=== PATIENT | male | born 1960 | race Caucasian/White ===

== ENCOUNTER 2018-05-26 13:24 | Inpatient (IN) | payer MEDICARE, OTHER ==
[~2018-05-26] VITALS: Ht 167.6 cm; Wt 58.1 kg
--- NOTE | 2018-05-26 13:25 | NUR ---
BIB SELF VIA WHEELCHAIR, C/O WEAKNESS, CHRONIC UTI AND LEFT BUTTOCK WOUND. TO ER BED 7, HOOKED TO MONITOR, ON REVERSE ISOLATION FOR LEUKEMIA. AWAITING MD PETERSEN.
--- NOTE | 2018-05-26 14:00 | NUR ---
PA AT BEDSIDE
[2018-05-26 14:17] LABS: BASOPHILS % (AUTO) 0.1 % (0.0-2.0); EOSINOPHILS % (AUTO) 0.1 % (0.0-6.0); HEMATOCRIT 39 % (39-51); HEMOGLOBIN 12.5 g/dL (13.5-17.5); LYMPHOCYTES # (AUTO) 0.4 /CMM (0.8-4.8); LYMPHOCYTES % (AUTO) 5.3 % (20.0-44.0); MEAN CORPUSCULAR HGB CONC 32 g/dl (31.0-36.0); MEAN CORPUSCULAR VOLUME 72 fL (80-96); MONOCYTES # (AUTO) 0.6 /CMM (0.1-1.30); MONOCYTES % (AUTO) 8.9 % (2.0-12.0); NEUTROPHILS # (AUTO) 6.1 /CMM (1.8-8.9); NEUTROPHILS % (AUTO) 85.6 % (43.0-81.0); PLATELET COUNT (AUTO) 531 /CMM (150-450); RED BLOOD CELL COUNT(AUTO) 5.38 MIL/uL (4.5-6.0); WHITE BLOOD COUNT (AUTO) 7.1 K/uL (4.3-11.0)
[2018-05-26 14:26] LABS: CALCIUM, SERUM 8.9 mg/dL (8.5-10.1); CARBON DIOXIDE 27 mmol/L (21-32); CHLORIDE 95 mmol/L (98-107); CREATININE 1.4 mg/dL (0.6-1.3); GLUCOSE 92 mg/dL (74-106); POTASSIUM 4.7 mmol/L (3.5-5.1); SODIUM SERUM 132 mmol/L (136-145); UREA NITROGEN, BLOOD 23 mg/dL (7-18)
--- NOTE | 2018-05-26 14:50 | NUR ---
URINE SPECIMEN SENT TO LAB
[2018-05-26] MEDS ORDERED: LIDOCAINE 1%-EPI 1:100,000 20 ML VIAL ONE (14:56)
[2018-05-26] MEDS ORDERED: VANCOMYCIN 1 GM in IV D5W 250 ML IV ONE (15:00)
[2018-05-26] MEDS ORDERED: PIPERACILLIN /TAZOBACTAM 3.375 G in IV D5W 50 ML IV ONE (15:00)
--- NOTE | 2018-05-26 15:00 | NUR ---
PT SIGNED CONSENT FOR DEBRIDEMENT. DR BENITO THIBODEAUX AT BEDSIDE FOR DEBRIDEMENT OF L BUTTOCK WOUND.
[2018-05-26 15:02] LABS: APPEARANCE,URINE Clear (CLEAR); BILIRUBIN,URINE Negative (NEGATIVE); BLOOD, URINE Trace-intact Ery/uL (NEGATIVE); COLOR,URINE Yellow (YELLOW); KETONES,URINE Negative (NEGATIVE); LEUKOCYTE ESTERASE ,URINE Small (NEGATIVE); NITRITE, URINE Negative (NEGATIVE); PROTEIN,URINE 100 mg/dl (NEGATIVE); UGLUCOSE Negative (NEGATIVE); UROBILINOGEN,URINE 0.2 EU/dL (0.2)
[2018-05-26 15:05] LABS: BACTERIA,URINE Rare /HPF (None Seen); RBC,URINE 0-2 /HPF (0-2); SQUAMOUS EPITHELIAL CELL,UR Rare /HPF (None Seen); WBC,URINE 0-2 /HPF (0-3)
[2018-05-26] MEDS ORDERED: IV NS 0.9% 1,000 ML BAG IV ONE (15:30)
[2018-05-26 16:19] LABS: BAND % (MANUAL) 1 % (0.0-5.0); EOSINOPHILS % (MANUAL) 1 % (0-4); LYMPHOCYTES % (MANUAL) 7 % (16-48); MONOCYTES % (MANUAL) 4 % (0-11.0); NEUTROPHILS % (MANUAL) 87 (42-76)
[2018-05-26 16:49] LABS: BILIRUBIN,DIRECT 0.1 mg/dL (0.0-0.2); BILIRUBIN,TOTAL 0.4 mg/dL (0.2-1.0)
[2018-05-26] MEDS ORDERED: Z GUARD REMEDY 2 OZ OINT TP PRN (17:00)
[2018-05-26] MEDS ORDERED: MAGNESIUM HYDROXIDE 30 ML UDC PO PRN (17:00)
[2018-05-26] MEDS ORDERED: MAG HYDROX/AL HYDROX/SIMETH 30 ML UDC PO PRN (17:00)
[2018-05-26] MEDS ORDERED: ONDANSETRON HCL/PF 4 MG/2 ML VIAL IVP PRN (17:00)
[2018-05-26] MEDS ORDERED: HYDROMORPHONE 1 MG/1 ML DISP.SYRIN IV PRN (17:00)
[2018-05-26] MEDS ORDERED: HYDROCODONE/APAP 5/325MG 1 EACH TABLET PO PRN (17:00)
[2018-05-26] MEDS ORDERED: ZOLPIDEM TARTRATE 5 MG TABLET PO PRN (17:00)
--- NOTE | 2018-05-26 17:07 | NUR ---
REPORT GIVEN TO TAMELA COHN
[2018-05-26] MEDS ORDERED: FEE PK DOSING 1 MIN EA MC ONE (17:19)
[2018-05-26] MEDS ORDERED: IV NS 0.9% 1,000 ML BAG IV PRN (17:30)
--- NOTE | 2018-05-26 17:45 | NUR ---
MS OPERATIONS BOARDMAN NOTES 58 YEARS OLD MALE BROUGHT IN VIA GURNEY FROM ER. PATIENT IS A/O X4, COOPERATIVE. SKIN BODY ASSESSMENT DONE WITH ALEX/RN, LEFT BUTTOCK PRESSURE ULCER, DRESSING CHANGED. IVC CATH IN LEFT AC PATENT AND INTACT. ORIENTATION TO ROOM, UNIT, STAFF. MAINTAINED SAFETY, WILL CONT TO MONITOR.
[2018-05-26 17:46] VITALS: BP 112/74
[2018-05-26] MEDS: PANTOPRAZOLE 40 MG VIAL IV SCH (18:35)
[2018-05-26] MEDS: IV NS 0.9% 1,000 ML IV PRN (18:36)
[2018-05-26] MEDS: DAKINS QUARTER STRENGTH (0.125%) 480 ML BOTTLE TOP SCH (19:03)
--- NOTE | 2018-05-26 19:30 | NUR ---
MS RN CLOSING NOTES PATIENT SITTING UP IN BED, HAD DINNER WITH POOR APPETITE, OFFERED PO FLUIDS. STARTED IVF ORDERED, MAINTAINED AT 75ML/HR. DENIES PAIN, SEEN BY GI/ SANA MONAHAN TODAY FOR CONSULT. MAINTAINED SAFETY, DR. MEDINA FOR CONSULT. ENDORSED TO ONCOMING RN FOR CONTINUITY OF CARE.
[2018-05-26 20:00] VITALS: BP 94/59
--- NOTE | 2018-05-26 20:15 | NUR ---
PAGED SANA TO CLARIFY CT ABDOMEN WITH CONTRAST PER RADIOLOGY CREA IS 1.4 AWAITING CALL BACK
--- NOTE | 2018-05-26 20:16 | NUR ---
[facility] HOSPITALIST SPOKE TO BENJAMIN RELAYED PT REQUEST RICHEY CATHETER PER PT HE HAS RETENTION AND DOING SELF CATHETERIZATION PER BENJAMIN AGREED TO INSERT F/C. AWARE OF RECENT BP READ BACK AND VERIFIED ORDERS
--- NOTE | 2018-05-26 20:17 | NUR ---
SPOKE TO SANA GAONA PER SANA CT CAN WAIT TOMORROW SHE WANTED TO SEE AM CREATININE LABS
--- NOTE | 2018-05-26 20:19 | NUR ---
MS RN NOTES RECEIVE PT IN BED A/O X 3, NO PAIN AT THIS TIME. IN STABLE CONDITION, NOT IN DISTRESS, SAFETY MEASURES IN PLACE. WILL CONTINUE TO MONITOR.
--- NOTE | 2018-05-26 20:30 | NUR ---
Inserted sarabia cathether per order FR 16 sterile technique pt tolerated procedure well with good clear yellow urine.
[2018-05-26] MEDS ORDERED: PRED5TAB48 PO (20:57)
[2018-05-26] MEDS ORDERED: PANT40TA2 PO (20:57)
[2018-05-26] MEDS ORDERED: GABA-532 PO (20:57)
[2018-05-26] MEDS: ENOXAPARIN SODIUM 40 MG/0.4 ML DISP.SYRIN SQ SCH (21:29)
--- NOTE | 2018-05-26 22:15 | NUR ---
PAGED HOSPITALIST RELAYED PT MEDICATION RECONCILIATION WAS NOT RECONCILED. REVIEW ALL HOME MEDS. PER BENJAMIN AGREED TO CONTINUE ALL HOME MEDS PT REQUEST TO TAKE PREDNISONE 5 MG TONIGHT READ BACK AND VERIFIED ORDERS NOTED AND CARRIED OUT.
[2018-05-26] MEDS: predniSONE 5 MG TABLET PO SCH (22:48)
[2018-05-26] MEDS: ZOSYN IVPB 3.375 G in IV D5W 50ml IV SCH (22:49)
[2018-05-27] MEDS ORDERED: VANCOMYCIN 1 GM VIAL ONE (01:51)
[2018-05-27] MEDS: HYDROCODONE/APAP 10/325MG 1 EA TABLET PO PRN (02:04)
[2018-05-27] MEDS: VANCOMYCIN 0.75 GM in IV D5W 250 ML IV SCH ×2 (02:04→14:54)
[2018-05-27 03:10] LABS: OCCULT BLOOD STOOL NEGATIVE (NEGATIVE)
[2018-05-27] MEDS: ZOSYN IVPB 3.375 G in IV D5W 50ml IV SCH ×4 (04:53→22:10)
[2018-05-27] MEDS: DAKINS QUARTER STRENGTH (0.125%) 480 ML BOTTLE TOP SCH ×2 (04:55→16:55)
--- NOTE | 2018-05-27 06:15 | NUR ---
MS RN CLOSING NOTES ASLEEP AND EASILY AWAKEN, NO COMPLAIN OF PAIN AT THIS TIME. REMAINS STABLE. RESPIRATION EVEN AND UNLABORED. KEPT CLEAN AND DRY AND COMFORTABLE, ALL NURSING CARE RENDERED. TREATMENT ORDERED TO THE WOUND. GOOD SKIN PROVIDED. NEEDS ATTENDED AND ANTICIPATED. REPOSITION EVERY 2 HOURS. WILL ENDORSE TO THE NEXT SHIFT.
[2018-05-27 07:05] LABS: BASOPHILS % (AUTO) 0.1 % (0.0-2.0); EOSINOPHILS % (AUTO) 0.4 % (0.0-6.0); HEMATOCRIT 31 % (39-51); HEMOGLOBIN 9.9 g/dL (13.5-17.5); LYMPHOCYTES # (AUTO) 0.8 /CMM (0.8-4.8); LYMPHOCYTES % (AUTO) 16.3 % (20.0-44.0); MEAN CORPUSCULAR HGB CONC 32 g/dl (31.0-36.0); MEAN CORPUSCULAR VOLUME 73 fL (80-96); MONOCYTES # (AUTO) 0.6 /CMM (0.1-1.30); MONOCYTES % (AUTO) 13.5 % (2.0-12.0); NEUTROPHILS # (AUTO) 3.2 /CMM (1.8-8.9); NEUTROPHILS % (AUTO) 69.7 % (43.0-81.0); PLATELET COUNT (AUTO) 463 /CMM (150-450); RED BLOOD CELL COUNT(AUTO) 4.27 MIL/uL (4.5-6.0); WHITE BLOOD COUNT (AUTO) 4.6 K/uL (4.3-11.0)
[2018-05-27 07:17] LABS: CREATININE 1.1 mg/dL (0.6-1.3); MAGNESIUM 1.7 mg/dL (1.8-2.4); POTASSIUM 4.9 mmol/L (3.5-5.1)
[2018-05-27 07:23] LABS: ALBUMIN 1.6 g/dL (3.4-5.0); BILIRUBIN,DIRECT 0.1 mg/dL (0.0-0.2); BILIRUBIN,TOTAL 0.3 mg/dL (0.2-1.0); TOTAL PROTEIN, SERUM 5.4 g/dL (6.4-8.2)
[2018-05-27] MEDS: PANTOPRAZOLE 40 MG TABLET.DR PO SCH (07:54)
[2018-05-27 08:00] VITALS: BP 88/54
[2018-05-27] MEDS: predniSONE 5 MG TABLET PO SCH ×2 (08:16→16:47)
[2018-05-27] MEDS: GABAPENTIN 100 MG CAPSULE PO SCH ×3 (08:16→16:47)
--- NOTE | 2018-05-27 08:20 | NUR ---
MS RN INITIAL NOTES Patient in bed, awake, A/O x4. Stable on RA with no SOB, no cough. Poor appetite, encourage to eat, verbalized understanding. IVF infusing, maintained at 75ml/hr. KCI mattress in place. Maintained safety, will cont to monitor.
[2018-05-27] MEDS ORDERED: IOHEXOL-300 100 ML VIAL IV ONE (09:18)
[2018-05-27] MEDS ORDERED: CT SWABBABLE VALVE TRANS SET 1 EA INFUS.SET MC ONE (09:19)
[2018-05-27] MEDS ORDERED: IV NS 0.9% 250 ML IV ONE (09:19)
--- NOTE | 2018-05-27 09:56 | NUR ---
WOUND CARE CONSULT: PT FOLLOWED BY PLASTIC SURGERY TEAM. DEFER TO SURGICAL TEAM FOR WOUND TREATMENT PLAN. ALL PRESSURE ULCER PREVENTION MEASURES IN PLACE. WILL SEE PRN.
[2018-05-27] MEDS: Magnesium 1GM/D5W 100ML PREMIX 100 ML IV SCH ×2 (11:11→12:07)
[2018-05-27] MEDS: IV NS 0.9% 1,000 ML IV PRN (13:17)
[2018-05-27] MEDS: ENSURE ENLIVE CHOC 237 ML CAN PO SCH ×2 (13:18→17:39)
[2018-05-27 16:00] VITALS: BP 101/68
[2018-05-27] MEDS: PANTOPRAZOLE 40 MG VIAL IV SCH (16:37)
[2018-05-27] MEDS: PROSOURCE / PROSTAT (PYXIS) 30 ML UDC PO SCH (16:46)
[2018-05-27] MEDS: FERROUS SULFATE (325 MG) 325 MG/TAB TABLET PO SCH (16:47)
[2018-05-27 18:11] VITALS: BP 101/68
--- NOTE | 2018-05-27 18:14 | NUR ---
MS RN CLOSING NOTES Patient is sitting up in bed, had dinner, Full liquids diet per ST recommendation. Patient is seen by PT today for eval, patient participated well. IVF infusing, maintained at 75ml/hr, low magnesium-supplemented today. Continued antibiotic as scheduled. Dressing changed to left buttock wound done, KCI mattress in place. Urinary sarabia cath intact, draining to gravity, bag off the floor. Copies of medical records from [facility] place in the chart, available if Dr. Monk/Oncologist ask for it. Maintained safety, call light within reach. Will endorse to oncoming RN for continuity of care.
--- NOTE | 2018-05-27 18:34 | NUR ---
Verified medications allergy from patient. Patient is A/O x4, stated he does not have PCN allergy. Updated patient's allergies to medication profile.
--- NOTE | 2018-05-27 19:00 | NUR ---
MS RN NOTES RECEIVE PT IN BED A/O X 3, NO PAIN AT THIS TIME. NOT IN DISTRESS, SAFETY MEASURES IN PLACE. WILL CONTINUE TO MONITOR.
[2018-05-27 20:00] VITALS: BP 107/54
[2018-05-27] MEDS: ENOXAPARIN SODIUM 40 MG/0.4 ML DISP.SYRIN SQ SCH (20:42)
[2018-05-28] MEDS: VANCOMYCIN 0.75 GM in IV D5W 250 ML IV SCH ×2 (02:01→02:40)
[2018-05-28] MEDS: IV NS 0.9% 1,000 ML IV PRN ×2 (02:01→20:43)
--- NOTE | 2018-05-28 02:40 | NUR ---
MS RN NOTES HELD VANCOMYCIN IVPB VANCO TROUGH IS 35. MISTAKEN SCANNED MEDICATION AT 0201 UNDONE.
[2018-05-28] MEDS: ZOSYN IVPB 3.375 G in IV D5W 50ml IV SCH ×4 (05:11→22:31)
[2018-05-28] MEDS: DAKINS QUARTER STRENGTH (0.125%) 480 ML BOTTLE TOP SCH ×2 (05:14→16:23)
--- NOTE | 2018-05-28 06:33 | NUR ---
MS RN CLOSING NOTES AWAKE WATCHING TV, TOLERATING ROOM AIR 98%, RESPIRATION EVEN AND UNLABORED. KEPT CLEAN AND DRY AND COMFORTABLE, NEEDS ATTENDED AND ANTICIPATED. ALL NURSING CARE RENDERED. REPOSITION EVERY 2 HOURS. TREATMENT ORDERED TO THE WOUND. GOOD SKIN PROVIDED. WILL ENDORSE TO THE NEXT SHIFT.
[2018-05-28 07:02] LABS: CALCIUM, SERUM 8.3 mg/dL (8.5-10.1); MAGNESIUM 2.1 mg/dL (1.8-2.4); POTASSIUM 4.3 mmol/L (3.5-5.1)
[2018-05-28 08:00] VITALS: BP 115/71
[2018-05-28 08:09] LABS: IMMUNOGLOBULIN A, SERUM 258 mg/dL (90-386); IMMUNOGLOBULIN G, SERUM 1024 mg/dL (700-1600); IMMUNOGLOBULIN M, SERUM 153 mg/dL (20-172)
--- NOTE | 2018-05-28 08:34 | NUR ---
MS RN INITIAL NOTES Received patient from Radha Portillo
[2018-05-28] MEDS: predniSONE 5 MG TABLET PO SCH ×2 (08:44→20:41)
[2018-05-28] MEDS: GABAPENTIN 100 MG CAPSULE PO SCH ×3 (08:45→16:21)
[2018-05-28] MEDS: FERROUS SULFATE (325 MG) 325 MG/TAB TABLET PO SCH ×2 (08:45→16:21)
[2018-05-28] MEDS: PANTOPRAZOLE 40 MG TABLET.DR PO SCH (08:46)
[2018-05-28] MEDS: ENSURE ENLIVE CHOC 237 ML CAN PO SCH ×3 (08:49→16:21)
[2018-05-28] MEDS: PROSOURCE / PROSTAT (PYXIS) 30 ML UDC PO SCH ×2 (09:26→16:21)
[2018-05-28 16:00] VITALS: BP 112/58
[2018-05-28] MEDS ORDERED: VANCOMYCIN 0.75 GM in IV D5W 250 ML IV SCH (16:00)
[2018-05-28] MEDS: PANTOPRAZOLE 40 MG VIAL IV SCH (16:49)
--- NOTE | 2018-05-28 18:33 | NUR ---
MS RN CLOSING NOTES Patient remained in bed, awake and pleasant. Alert and oriented x4, verbally responsive. Denies any pain at the moment. Not in any type of distress. On antibiotic treatment for infected left buttocks wound. Afebrile. Dressing changed and treatment rendered as ordered. Safety measures in place. Possible EGD on wednesday. Ileostomy bag emptied. IV dressing changed. Bed in locked and lowest position with bed alarm on and call light within reach. Patient is motivated to self-care. All needs anticipated and met. Will endorse to oncoming shift nurse.
--- NOTE | 2018-05-28 19:25 | NUR ---
MS RN NOTES RECEIVE PT IN BED A/O X 3. RESPIRATIONS EVEN AND UNLABORED. NOT IN DISTRESS, SAFETY MEASURES IN PLACE. WILL CONTINUE TO MONITOR.
[2018-05-28 20:00] VITALS: BP 117/68
[2018-05-28] MEDS: ENOXAPARIN SODIUM 40 MG/0.4 ML DISP.SYRIN SQ SCH (20:42)
[2018-05-29] MEDS: ZOSYN IVPB 3.375 G in IV D5W 50ml IV SCH ×4 (05:16→22:00)
[2018-05-29] MEDS: DAKINS QUARTER STRENGTH (0.125%) 480 ML BOTTLE TOP SCH ×2 (05:19→17:31)
--- NOTE | 2018-05-29 06:04 | NUR ---
MS RN CLOSING NOTES ASLEEP AND EASILY AWAKEN, AM CARE PROVIDED. STABLE. NO CHANGES THROUGHOUT SHIFT. TREATMENT ORDERED TO THE WOUND. GOOD SKIN CARE PROVIDED. TOLERATING ROOM AIR 100%, RESPIRATION EVEN AND UNLABORED. KEPT CLEAN AND DRY AND COMFORTABLE, NEEDS ATTENDED AND ANTICIPATED. ALL NURSING CARE RENDERED. REPOSITION EVERY 2 HOURS. WILL ENDORSE TO THE NEXT SHIFT.
[2018-05-29 07:04] LABS: CALCIUM, SERUM 7.8 mg/dL (8.5-10.1); CREATININE 0.9 mg/dL (0.6-1.3); POTASSIUM 4.3 mmol/L (3.5-5.1)
--- NOTE | 2018-05-29 07:50 | NUR ---
MS RN OPENING NOTES RECEIVED PT LAYING IN BED RESTING COMFORTABLY W/ HOB SLIGHTLY ELEVATED. PT IS A/O X4, AFEBRILE. RESPIRATIONS ARE EVEN AND UNLABORED, NOT IN ANY ACUTE DISTRESS NOTED. PT C/O PAIN 5/10 TO LEFT BUTTOCK BUT "IS TOLERABLE" AT THIS TIME, NO C/O SOB, N/V. IV SITE TO LAC INTACT, NO INFILTRATION NOTED. DRESSING KEPT CLEAN AND DRY. SAFETY MEASURES ARE IN PLACE. BED IS IN ITS LOCKED AND LOWEST POSITION. INSTRUCTED PT TO USE CALL LIGHT WHEN ASSISTANCE IS NEEDED, CALL LIGHT IS LEFT WITHIN REACH. WILL MONITOR THROUGHOUT SHIFT FOR CONTINUITY OF CARE.
[2018-05-29 08:00] VITALS: BP 112/67
[2018-05-29 08:11] VITALS: BP 112/67
[2018-05-29] MEDS: FERROUS SULFATE (325 MG) 325 MG/TAB TABLET PO SCH ×2 (08:52→16:13)
[2018-05-29] MEDS: predniSONE 5 MG TABLET PO SCH ×2 (08:52→20:28)
[2018-05-29] MEDS: PANTOPRAZOLE 40 MG VIAL IV SCH (08:53)
[2018-05-29] MEDS: PROSOURCE / PROSTAT (PYXIS) 30 ML UDC PO SCH ×2 (08:53→16:16)
[2018-05-29] MEDS: GABAPENTIN 100 MG CAPSULE PO SCH ×3 (08:53→20:28)
[2018-05-29] MEDS: ENSURE ENLIVE CHOC 237 ML CAN PO SCH ×3 (08:54→17:33)
--- NOTE | 2018-05-29 12:30 | NUR ---
MS RN NOTES-- RECEIVED ORDERS PER DR. REGALADO FOR IMODIUM 2MG Q4H PRN. ORDERS READ BACK AND VERIFIED.
--- NOTE | 2018-05-29 13:07 | NUR ---
MS RN NOTES-- PT STATES HE TAKES GABAPENTIN 0900, 1500, 2100.
[2018-05-29] MEDS: LOPERAMIDE HCL (2 MG CAP) 2 MG CAPSULE PO PRN ×2 (13:43→20:36)
--- NOTE | 2018-05-29 14:30 | NUR ---
MS RN NOTES-- DR. LAUREN MADE AWARE THAT PT REFUSED GOLYTELY. PER DR. LAUREN "THATS OKAY."
[2018-05-29] MEDS ORDERED: PEG 3350/NA SULF,BICARB,CL/KCL 4,000 ML BOTTLE PO ONE (15:00)
--- NOTE | 2018-05-29 15:00 | NUR ---
MS RN NOTES-- PT SIGNED CONSENT FORMS FOR EGD AND COLONOSCOPY. PER DR. LAUREN, COLONOSCOPY CONSENT IS FOR THE SCOPE TO ENTER THROUGH ILEOSTOMY. PT MADE AWARE.
--- NOTE | 2018-05-29 15:20 | NUR ---
MS RN NOTES GAVE REPORT TO SUKI BRANHAM FOR CONTINUITY OF CARE. PT IS A/O X4, AFBERILE. RESPIRATIONS ARE EVEN AND UNLABORED, NOT IN ANY ACUTE DISTRESS NOTED. PT C/O PAIN BUT IS TOLERABLE. PT STATES HE WILL TAKE HIS GABAPENTIN INSTEAD. PT ABLE TO REPOSITION SELF. NEEDS MET AND RENDERED.
--- NOTE | 2018-05-29 15:30 | NUR ---
RECEIVED PATIENT IN STABLE CONDITION. A/OX4, ABLE TO MAKE NEEDS KNOWN. NO ACUTE DISTRESS, NO SOB. DENIED PAIN OR DISCOMFORT AT THE MOMENT. IV ACCESS INTACT AND PATENT. RICHEY IN PLACE. ILEOSTOMY IN PLACE. ON AIR MATTRESS, ABLE TO TURN SELF ON BED. KEPT PATIENT SAFE AND COMFORTABLE. BED IN LOW/LOCKED POSIITON, SIDERAILS UPX2, CALL LIGHT IN REACH. WILL CONTINUE TO MONIIOTR ACCORDINGLY.
[2018-05-29 16:02] VITALS: BP 140/87
[2018-05-29] MEDS: IV NS 0.9% 1,000 ML IV PRN (16:05)
--- NOTE | 2018-05-29 16:21 | NUR ---
ASSESSED PATIENT FOR PAIN. VERBALIZED 6/10 PAIN ON BUTTOCKS. OFFERED PAIN MEDICATIONS X2 BUT REFUSED. PER PATIENT, "IT'S TOLERABLE". WILL CONT TO MONIOTR ACCORDINGLY.
[2018-05-29] MEDS: HYDROCODONE/APAP 10/325MG 1 EA TABLET PO PRN (17:27)
--- NOTE | 2018-05-29 18:09 | NUR ---
WOUND CARE RENDERED. OFFERED TURNING AND REPOSITIONING, PATIENT STATED "NO THANK YOU, I CAN MOVE BY MYSELF". REMINDED PATIENT TO TURN AND REPOSITION EVERY 2HRS, PATIENT STATED "OK".
--- NOTE | 2018-05-29 19:00 | NUR ---
MS RN OPENING NOTES Received patient awake, A/OX4, conversant. On semi-Kan's position on bed with air mattress. With son at bedside. With wound dressing on L buttock clean, dry and intact. With FC indwelling well with clear yellow urine output at 50cc level. With patent peripheral IV line LAC G#20 with NS @ 75 ml/hr. On RA, breathing even and unlabored. Denies discomfort at this time. Adjusted room temperature to patient's comfortable level. Call light at bedside. Kept clean, dry and comfortable. Will continue to monitor accordingly.
--- NOTE | 2018-05-29 19:19 | NUR ---
RN CLOSING NOTES PATIENT IN STABLE CONDITION. ALL NEEDS ATTENDED AND PROVIDED. ALL DUE MEDICATIONS GIVEN ORDERED. KEPT PATIENT SAFE AND COMFORTABLE. BED IN LOW/LOCKED POSITION, SIDERAILS UPX2, CALL LIGHT IN REACH. ENDORSED TO NIGHT RN FOR AZRA.
[2018-05-29 20:00] VITALS: BP 100/59
[2018-05-29] MEDS: ENOXAPARIN SODIUM 40 MG/0.4 ML DISP.SYRIN SQ SCH (20:28)
--- NOTE | 2018-05-29 22:00 | NUR ---
MS RN NOTES Patient is for EGD tomorrow[facility] senior reservations agent SILVERIO Bridges notified.
--- NOTE | 2018-05-30 | NUR ---
MS RN NOTES Patient kept on NPO for EGD tomorrow, per schedule @ 2pm. Removed food and beverages from patient. Patient verbalized understanding on the procedure preparation. Pre-op checklist initiated.
[2018-05-30] MEDS: ZOSYN IVPB 3.375 G in IV D5W 50ml IV SCH ×2 (04:10→11:42)
[2018-05-30] MEDS: DAKINS QUARTER STRENGTH (0.125%) 480 ML BOTTLE TOP SCH ×2 (05:27→18:02)
[2018-05-30] MEDS: IV NS 0.9% 1,000 ML IV PRN (06:42)
--- NOTE | 2018-05-30 06:48 | NUR ---
MS RN CLOSING NOTES Patient asleep on bed, with patent IV line. Wound care done. FC indwelling well with 1300cc clear yellow urine output. Ileostomy drained twice throughout the shift with total output of 375ml. Kept on NPO since midnight for EGD today. All needs attended. Due meds given as ordered. Afebrile the whole shift, no new complaints made. Kept clean, dry and comfortable. Call light within easy reach. Endorsed to the next shift.
--- NOTE | 2018-05-30 07:10 | NUR ---
RN OPENING NOTES RECEIVED PATIENT LAYING IN BED RESTING COMFORTABLY W/ HOB SLIGHTLY ELEVATED. A/O X4, ABLE TO MAKE NEEDS KNOWN. NO ACUTE DISTRESS NOTED. NO SOB. PAIN 3/10 ON LEFT BUTTOCKS, OFFERED PAIN MEDS BUT REFUSED AT THE MOMENT, "TOLERABLE" PER PATIENT. IV ACCESS ON LAC INTACT AND PATENT. DRESSING ON LEFT BUTTOCKS KEPT CLEAN AND DRY. SAFETY MEASURES ARE IN PLACE. BED IS IN ITS LOCKED AND LOWEST POSITION. INSTRUCTED PATIENT TO USE CALL LIGHT WHEN ASSISTANCE IS NEEDED, SIDERAILS UP. CALL LIGHT IS LEFT WITHIN REACH. WILL CONTINUE TO MONITOR ACCORDINGLY. Addendum: 05/30/18 at 0813 by CARROL VALDES RICHEY IN PLACE DRAINING CLEAR YELLOW URINE. ILEOSTOMY BAG IN PLACE, EMPTIED.
[2018-05-30] MEDS: PANTOPRAZOLE 40 MG TABLET.DR PO SCH ×2 (07:30→15:54)
[2018-05-30 08:00] VITALS: BP_SYST 18; BP_SYST 96; BP_DIAS 59; BP_DIAS 96
[2018-05-30 08:00] LABS: CALCIUM, SERUM 8.3 mg/dL (8.5-10.1); POTASSIUM 4.3 mmol/L (3.5-5.1)
[2018-05-30] MEDS: ENSURE ENLIVE CHOC 237 ML CAN PO SCH ×3 (08:00→18:02)
[2018-05-30 08:15] LABS: BASOPHILS % (AUTO) 0.2 % (0.0-2.0); EOSINOPHILS % (AUTO) 2.3 % (0.0-6.0); HEMATOCRIT 29 % (39-51); HEMOGLOBIN 9.4 g/dL (13.5-17.5); LYMPHOCYTES # (AUTO) 2.3 /CMM (0.8-4.8); LYMPHOCYTES % (AUTO) 59.9 % (20.0-44.0); MEAN CORPUSCULAR HGB CONC 32 g/dl (31.0-36.0); MEAN CORPUSCULAR VOLUME 74 fL (80-96); MONOCYTES % (AUTO) 27.3 % (2.0-12.0); NEUTROPHILS # (AUTO) 0.4 /CMM (1.8-8.9); NEUTROPHILS % (AUTO) 10.3 % (43.0-81.0); PLATELET COUNT (AUTO) 455 /CMM (150-450); RED BLOOD CELL COUNT(AUTO) 3.96 MIL/uL (4.5-6.0); WHITE BLOOD COUNT (AUTO) 3.8 K/uL (4.3-11.0)
[2018-05-30] MEDS: PROSOURCE / PROSTAT (PYXIS) 30 ML UDC PO SCH ×2 (09:00→16:04)
[2018-05-30] MEDS: GABAPENTIN 100 MG CAPSULE PO SCH ×3 (09:00→20:57)
[2018-05-30] MEDS: predniSONE 5 MG TABLET PO SCH ×3 (09:00→20:57)
[2018-05-30] MEDS: FERROUS SULFATE (325 MG) 325 MG/TAB TABLET PO SCH ×2 (09:00→16:04)
[2018-05-30 09:08] LABS: LYMPHOCYTES % (MANUAL) 67 % (16-48); MONOCYTES % (MANUAL) 22 % (0-11.0); NEUTROPHILS % (MANUAL) 11 (42-76)
[2018-05-30] MEDS ORDERED: PIPERACILLIN /TAZOBACTAM 3.375 G in IV D5W 100 ML IV SCH (12:00)
--- NOTE | 2018-05-30 15:30 | NUR ---
CAME BACK FROM EGD/COLONOSCOPY. TOLERATED WELL. VS WNL. AWAKE, RESPONSIVE. WILL MONIOTR ACCORDINGLY.
[2018-05-30] MEDS: PIPERACILLIN /TAZOBACTAM 3.375 G in IV D5W 100 ML IV SCH (15:59)
[2018-05-30 16:31] VITALS: BP 104/61
[2018-05-30] MEDS ORDERED: SIMETHICONE 80 MG TAB.CHEW PO PRN (17:00)
[2018-05-30] MEDS: LACTOBACILLUS RHAMNOSUS GG 1 EACH CAP.SPRINK PO SCH (17:44)
--- NOTE | 2018-05-30 18:00 | NUR ---
WOUND CARE RENDERED. OFFERED TURNING AND REPOSITIONING, PATIENT REFUSED STATED THAT HE CAN MOVE BY HIMSELF. REMINDED PATIENT TO TURN AND REPOSITION EVERY 2HRS, PATIENT STATED "OK".
--- NOTE | 2018-05-30 19:41 | NUR ---
MS/RN OPENING NOTES PT RECEIVED AWAKE, RESTING COMFORTABLY IN BED. A/OX4. ON ROOM AIR, BREATHING EVEN AND UNLABORED. DENIES SOB AND PAIN AT THIS TIME. ILEOSTOMY IN PLACE, NO S/S OF LEAKING. RICHEY IN PLACE AND DRAINING TO GRAVITY. IV TO LAC PATENT AND INTACT RUNNING IVF ORDERED. BED IN LOW/LOCKED POSITION WITH CALL LIGHT IN REACH. SIDE RAILS UP X2 WITH HOB ELEVATED. WILL CONTINUE TO MONITOR Addendum: 05/30/18 at 2335 by GLEN MARTINEZ RN PT ANXIOUS AND UPSET. EMOTIONAL SUPPORT PROVIDED. ABLE TO CALM DOWN
[2018-05-30 20:00] VITALS: BP 109/60
--- NOTE | 2018-05-30 20:15 | NUR ---
MS/RN NOTES MD STEIN NOTIFIED OF PT'S TEMP OF 102.1F WITH ORDERS FOR GRANIX AND CULTURES. ORDERS NOTED AND CARRIED OUT.
--- NOTE | 2018-05-30 20:35 | NUR ---
MS/RN NOTES MD STEIN NOTIFIED THAT PT IS STILL STRONGLY REFUSING ADMINISTRATION OF GRANIX DESPITE EDUCATION ON RISKS/BENEFITS. SAID HES "TAKEN IT BEFORE AND IT DIDNT WORK, I ALREADY EXPLAINED THIS TO THE DOCTOR". NO FURTHER ORDERS.
--- NOTE | 2018-05-30 20:45 | NUR ---
MS/RN NOTES MD HULL NOTIFIED OF PT'S TEMP AND NEUTROPHIL LEVEL. WITH ORDERS FOR CXR AND CBC IN AM.
[2018-05-30] MEDS: ACETAMINOPHEN 325 MG TABLET PO PRN (20:54)
[2018-05-30] MEDS: ENOXAPARIN SODIUM 40 MG/0.4 ML DISP.SYRIN SQ SCH (21:05)
--- NOTE | 2018-05-30 22:00 | NUR ---
MS/RN NOTES TEMP 99.2F COOLING MEASURES CONTINUED
[2018-05-31] MEDS: PIPERACILLIN /TAZOBACTAM 3.375 G in IV D5W 100 ML IV SCH ×3 (00:17→16:55)
[2018-05-31 05:14] LABS: *SPE A/G RATIO 0.7 (0.7-1.7); *SPE ALBUMIN 1.9 g/dL (2.9-4.4); *SPE ALPHA-1-GLOBULIN 0.4 g/dL (0.0-0.4); *SPE ALPHA-2-GLOBULIN 0.7 g/dL (0.4-1.0); *SPE BETA GLOBULIN 0.8 g/dL (0.7-1.3); *SPE GLOBULIN, TOTAL 2.9 g/dL (2.2-3.9); *SPE M-SPIKE Not Observed g/dL (Not Observed)
[2018-05-31] MEDS: IV NS 0.9% 1,000 ML IV PRN ×2 (05:38→16:56)
[2018-05-31] MEDS: DAKINS QUARTER STRENGTH (0.125%) 480 ML BOTTLE TOP SCH ×2 (05:39→16:57)
--- NOTE | 2018-05-31 07:46 | NUR ---
MS/RN CLOSING NOTES PT AWAKE, SITTING UP IN BED. ON ROOM AIR, BREATHING EVEN AND UNLABORED. DENIES SOB AND PAIN AT THIS TIME. WOUND CARE PROVIDED ORDERED. RICHEY IN PLACE AND DRAINING TO GRAVITY. ILEOSTOMY INTACT. IV TO LAC LEAKING AND BLOODY. REMOVED AND DAY RN AWARE FOR NEW IV INSERTION. LATEST TEMP 97.6F. BED IN LOW/LOCKED POSITION WITH CALL LIGHT IN REACH AND BILATERAL UPPER SIDE RAILS IN PLACE. ENDORSED TO DAY SHIFT RN AZRA.
--- NOTE | 2018-05-31 07:50 | NUR ---
MS RN OPENING NOTE RECEIVED PT IN BED, ALERT AND ORIENTED X4. DENIES N/V, CHEST PAIN, SOB. BREATHING IS EVEN AND UNLABORED ON ROOM AIR. L AC #20G FOUND TO BE LEAKING AND RED. REMOVED BY REGIONAL BRANCH MANAGER RN, WILL ATTEMPT IV REINSERT. RICHEY NOTED TO BE DRAINING CLEAR, YELLOW URINE. ILEOSTOMY NOTED TO BE INTACT. ALL NEEDS ATTENDED TO. BED IS LOCKED AND IN LOWEST POSITION, SIDE RAILS UP X2, CALL LIGHT WITHIN REACH.
[2018-05-31 07:53] LABS: BASOPHILS % (AUTO) 0.1 % (0.0-2.0); EOSINOPHILS % (AUTO) 1.3 % (0.0-6.0); HEMATOCRIT 35 % (39-51); LYMPHOCYTES # (AUTO) 1.6 /CMM (0.8-4.8); LYMPHOCYTES % (AUTO) 43.3 % (20.0-44.0); MEAN CORPUSCULAR HGB CONC 32 g/dl (31.0-36.0); MEAN CORPUSCULAR VOLUME 75 fL (80-96); MONOCYTES # (AUTO) 0.8 /CMM (0.1-1.30); NEUTROPHILS # (AUTO) 1.2 /CMM (1.8-8.9); NEUTROPHILS % (AUTO) 32.3 % (43.0-81.0); PLATELET COUNT (AUTO) 504 /CMM (150-450); RED BLOOD CELL COUNT(AUTO) 4.65 MIL/uL (4.5-6.0); WHITE BLOOD COUNT (AUTO) 3.7 K/uL (4.3-11.0)
[2018-05-31 08:00] VITALS: BP 109/72
[2018-05-31 08:01] LABS: CALCIUM, SERUM 8.6 mg/dL (8.5-10.1); CREATININE 1.1 mg/dL (0.6-1.3)
[2018-05-31] MEDS: PANTOPRAZOLE 40 MG TABLET.DR PO SCH (08:16)
[2018-05-31] MEDS: FERROUS SULFATE (325 MG) 325 MG/TAB TABLET PO SCH ×2 (08:16→16:56)
[2018-05-31] MEDS: GABAPENTIN 100 MG CAPSULE PO SCH ×3 (08:16→21:25)
[2018-05-31] MEDS: LACTOBACILLUS RHAMNOSUS GG 1 EACH CAP.SPRINK PO SCH ×2 (08:16→16:56)
[2018-05-31] MEDS: predniSONE 5 MG TABLET PO SCH ×2 (08:16→21:25)
[2018-05-31] MEDS: PROSOURCE / PROSTAT (PYXIS) 30 ML UDC PO SCH ×2 (08:17→16:56)
[2018-05-31] MEDS: ENSURE ENLIVE CHOC 237 ML CAN PO SCH ×3 (08:17→16:56)
[2018-05-31 08:35] LABS: BAND % (MANUAL) 1 % (0.0-5.0); LYMPHOCYTES % (MANUAL) 53 % (16-48); NEUTROPHILS % (MANUAL) 26 (42-76)
[2018-05-31 08:36] LABS: EOSINOPHILS % (MANUAL) 3 % (0-4); MONOCYTES % (MANUAL) 17 % (0-11.0)
--- NOTE | 2018-05-31 08:40 | NUR ---
MS RN NON ADMINISTRATION NOTE IV ZOSYN NOT GIVEN BECAUSE PT DOES NOT HAVE IV ACCESS AND TWO NURSES ATTEMPTED IV ACCESS. PER DR. REGALADO, HE WILL CONTACT DR. DENISHA SY TO INSERT A PICC LINE.
--- NOTE | 2018-05-31 09:41 | NUR ---
MS RN ILEOSTOMY BAG CHANGED ILEOSTOMY BAG FOUND TO BE LEAKING. CHANGED WITH PT PROVIDED HOME SUPPLIES. STOMA IS PINK AND SKIN SURROUNDING SITE IT INTACT.
--- NOTE | 2018-05-31 10:00 | NUR ---
MS RN NOTE THE NURSE INSPECTED PT SKIN AND THE RIGHT HIP IS PINK AND BLANCHABLE AT THIS TIME, MEPILEX APPLIED FOR OFFLOADING. PROVIDED EDUCATION TO PT TO TURN AND REPOSITION SELF AT LEAST EVERY 2 HOURS, PROVIDED EDUCATION REGARDING RISK FOR PRESSURE ULCER. PT STATED HE FAVORS SITTING ON HIS RIGHT HIP. EDUCATION PROVIDED ON RISKS AND BENEFITS ON CONTINUING TO LAY ON RIGHT HIP SINCE THERE IS ALREADY REDNESS PRESENT. PT VERBALIZED UNDERSTANDING OF INSTRUCTIONS.
--- NOTE | 2018-05-31 14:00 | NUR ---
MS RN NOTE PICC LINE NURSE SHAMAR AT THE BEDSIDE
[2018-05-31 16:00] VITALS: BP 124/74
--- NOTE | 2018-05-31 18:52 | NUR ---
MS RN CLOSING NOTE PT IN BED, ALERT AND ORIENTED X4. DENIES N/V, CHEST PAIN, SOB. BREATHING IS EVEN AND UNLABORED ON ROOM AIR. RICHEY NOTED TO BE DRAINING CLEAR, YELLOW URINE. ILEOSTOMY NOTED TO BE INTACT. ADLS PROVIDED AND PT ASSISTED TO TURN AND REPOSITION Q2H FOR THE DURATION OF THE SHIFT. ALL NEEDS ATTENDED TO. BED IS LOCKED AND IN LOWEST POSITION, SIDE RAILS UP X2, CALL LIGHT WITHIN REACH. WILL ENDORSE TO NURSE LDR NURSE FOR CONTINUITY OF CARE.
[2018-05-31 20:00] VITALS: BP 123/74
[2018-05-31] MEDS: ENOXAPARIN SODIUM 40 MG/0.4 ML DISP.SYRIN SQ SCH (21:26)
[2018-06-01] MEDS: PIPERACILLIN /TAZOBACTAM 3.375 G in IV D5W 100 ML IV SCH ×3 (00:25→17:01)
[2018-06-01] MEDS: DAKINS QUARTER STRENGTH (0.125%) 480 ML BOTTLE TOP SCH ×2 (05:56→17:03)
--- NOTE | 2018-06-01 06:31 | NUR ---
PT IN BED AWAKE AND ALERT. BREATHING EVENLY . NO SOB. NO ACUTE EVENT DURING THE NIGHT. NO C/O PAIN OR DISCOMFORT. F/C IN PLACE DRAINING CLEAR YELLOW URINE. PT WAS ASSISTED W/ REPOSITIONING. WOUND CARE, RICHEY CARE AND ILEOSTOMY CARE WAS PROVIDED. GOOD ISOLATION PRECAUTION AND PROPER HAND WASHING OBSERVED. NEEDS MET. BED LOW LOCKED. CALL LIGHT WITHIN REACH, WILL CONT TO MONITOR AND WILL ENDORSE TO AM SHIFT FOR AZRA.
[2018-06-01 06:37] LABS: BASOPHILS % (AUTO) 0.2 % (0.0-2.0); EOSINOPHILS % (AUTO) 1.3 % (0.0-6.0); HEMATOCRIT 30 % (39-51); HEMOGLOBIN 9.8 g/dL (13.5-17.5); LYMPHOCYTES # (AUTO) 1.5 /CMM (0.8-4.8); LYMPHOCYTES % (AUTO) 45.8 % (20.0-44.0); MEAN CORPUSCULAR HGB CONC 32 g/dl (31.0-36.0); MEAN CORPUSCULAR VOLUME 74 fL (80-96); MONOCYTES # (AUTO) 0.8 /CMM (0.1-1.30); MONOCYTES % (AUTO) 24.7 % (2.0-12.0); NEUTROPHILS # (AUTO) 0.9 /CMM (1.8-8.9); PLATELET COUNT (AUTO) 514 /CMM (150-450); WHITE BLOOD COUNT (AUTO) 3.3 K/uL (4.3-11.0)
[2018-06-01 06:50] LABS: CALCIUM, SERUM 8.5 mg/dL (8.5-10.1); CREATININE 0.9 mg/dL (0.6-1.3); POTASSIUM 4.1 mmol/L (3.5-5.1)
[2018-06-01 07:14] LABS: BAND % (MANUAL) 2 % (0.0-5.0); LYMPHOCYTES % (MANUAL) 47 % (16-48); MONOCYTES % (MANUAL) 24 % (0-11.0); NEUTROPHILS % (MANUAL) 27 (42-76)
[2018-06-01 08:00] VITALS: BP 120/70
--- NOTE | 2018-06-01 08:17 | NUR ---
MS RN NOTES PATIENT RECEIVED RESTING INSIDE ROOM. AWAKE, ALERT AND ORIENTED X 4, VERBALLY RESPONSIVE AND RESPONDS TO VERBAL AND TACTILE STIMULI. BREATHING EVEN AND UNLABORED. DENIES ANY PAIN OR DISCOMFORT. PICCLINE IN PLACE ON COOPER, DRESSING INTACT AND DRY. MAINTAINED ISOLATION PRECAUTIONS. RICHEY CATHETER IN PLACE WITH CLEAR YELLOW URINE OUTPUT NOTED. WILL CONTINUE TO MONITOR. BED LOCKED AND IN LOW POSITION. BILATERAL UPPER SIDE RAILS UP AND LOCKED. CALL LIGHT WITHIN EASY REACH
[2018-06-01] MEDS: ENSURE ENLIVE CHOC 237 ML CAN PO SCH ×4 (08:54→20:51)
[2018-06-01] MEDS: predniSONE 5 MG TABLET PO SCH ×2 (08:55→20:49)
[2018-06-01] MEDS: PANTOPRAZOLE 40 MG TABLET.DR PO SCH (08:55)
[2018-06-01] MEDS: FERROUS SULFATE (325 MG) 325 MG/TAB TABLET PO SCH ×2 (08:55→17:01)
[2018-06-01] MEDS: GABAPENTIN 100 MG CAPSULE PO SCH ×3 (08:55→20:49)
[2018-06-01] MEDS: LACTOBACILLUS RHAMNOSUS GG 1 EACH CAP.SPRINK PO SCH ×2 (08:55→17:01)
[2018-06-01] MEDS: PROSOURCE / PROSTAT (PYXIS) 30 ML UDC PO SCH ×2 (08:57→17:01)
[2018-06-01] MEDS: ACETAMINOPHEN 325 MG TABLET PO PRN (09:52)
--- NOTE | 2018-06-01 10:56 | NUR ---
WOUND CARE CONSULT WOUND CARE RECEIVED CONSULT FOR RIGHT HIP REDNESS. WOUND CARE WILL DEFER CONSULT AND TREATMENT PLAN TO PLASTIC SURGICAL TEAM WHO ARE CURRENTLY FOLLOWING THIS PATIENT. PLASTIC SURGICAL TEAM HAS BEEN NOTIFIED. WILL SEE PRN.
[2018-06-01] MEDS ORDERED: SILVER NITRATE APPLICATOR 1 EA BOX TP ONE (15:30)
[2018-06-01] MEDS ORDERED: LIDOCAINE 2%-EPI 1:100,000 30 ML VIAL TP ONE (15:30)
[2018-06-01 16:00] VITALS: BP 105/70
--- NOTE | 2018-06-01 18:49 | NUR ---
MS RN NOTES PATIENT RESTING INSIDE ROOM. AWAKE, ALERT AND ORIENTED. VERBALLY RESPONSIVE AND RESPONDS TO VERBAL AND TACTILE STIMULI. BREATHING EVEN AND UNLABORED. NO SOB OR ACUTE DISTRESS. DENIES ANY PAIN OR DISCOMFORT. PATIENT KEPT CLEAN, DRY AND COMFORTABLE. NEEDS ATTENDED AND MET. MAINTAINED ISOLATION PRECAUTION. WILL ENDORSE TO INCOMING SHIFT FOR AZRA. BED LOCKED AND IN LOW POSITION. BILATERAL UPPER SIDE RAILS UP AND LOCKED. CALL LIGHT WITHIN EASY REACH
--- NOTE | 2018-06-01 19:45 | NUR ---
MS RN NOTES RECEIVED ON BED A/O X4,BREATHING REGULAR,NOT IN ANY FORM OF DISTRESS.ON REVERSE ISOLATION DUE TO LOW WBC,WITH COOPER PICC LINE FOR MEDS.LEFT BUTTOCK WOUND WITH DRESSING INTACT AND DRY.FOR WOUND DEBRIDEMENT AT BEDSIDE IN AM.CONSENT ON CHART.NPO POST MIDNIGHT.PATIENT AWARE.CALL LIGHT IN REACH,NEEDS ANTICIPATED.
[2018-06-01 20:00] VITALS: BP 119/68
[2018-06-01] MEDS: ENOXAPARIN SODIUM 40 MG/0.4 ML DISP.SYRIN SQ SCH ×2 (21:00→21:20)
--- NOTE | 2018-06-01 21:00 | NUR ---
MS COHN NOTES CHRIS MAN,FOR WOUND DEBRIDEMENT IN AM. Addendum: 06/01/18 at 2131 by FERNANDO BORREGO RN LOVENOX 40MG SQ GIVEN PER WEB DEVELOPER PROGRAMMER BENJI JORDAN ON RIGHT LOWER ABDOMEN,PATIENT REFUSED TO BE GIVEN ON THE LEFT LOWER ABDOMEN
--- NOTE | 2018-06-01 21:15 | NUR ---
MS RN NOTES RECEIVED MESSAGE FROM SUPERVISOR LIVESTOCK YARD CORTNEY HORNE TO GIVE LOVENOX DOSE TONIGHT,HOLD MORNING DOSE,DEBRIDEMENT TO BE DONE ON OR.
[2018-06-02] VITALS (8 sets, daily range): BP systolic 99–134; BP diastolic 49–79
--- NOTE | 2018-06-02 | NUR ---
MS RN NOTES AWAKE,DUE IV ABX HUNG,INFUSING VIA IV PUMP.ABLE TO REPOSITION SELF.WITH HX OF RIGHT BKA,PARAPLEGIC.
[2018-06-02] MEDS: PIPERACILLIN /TAZOBACTAM 3.375 G in IV D5W 100 ML IV SCH ×4 (00:03→23:55)
--- NOTE | 2018-06-02 05:30 | NUR ---
MS RN NOTES DRESSING CHANGED DONE ON LEFT BUTTOCK WOUND WITH DAKIN'S SOLUTION.
[2018-06-02] MEDS: DAKINS QUARTER STRENGTH (0.125%) 480 ML BOTTLE TOP SCH ×2 (05:58→17:30)
--- NOTE | 2018-06-02 06:26 | NUR ---
MS RN NOTES FAIRLY RESTED,INSTRUCTED NPO POST MIDNIGHT FOR LEFT HIP WOUND DEBRIDEMENT AT [address] OLIVER.CONSENT ON CHART,REVERSED ISOLATION OBSERVED.CALL LIGHT IN REACH,NEEDS ATTENDED.WILL ENDORSE TO DAY NURSE FOR AZRA.
[2018-06-02 07:21] LABS: BASOPHILS % (AUTO) 0.3 % (0.0-2.0); EOSINOPHILS % (AUTO) 1.6 % (0.0-6.0); HEMATOCRIT 31 % (39-51); LYMPHOCYTES % (AUTO) 52.8 % (20.0-44.0); MEAN CORPUSCULAR HGB CONC 32 g/dl (31.0-36.0); MEAN CORPUSCULAR VOLUME 74 fL (80-96); MONOCYTES % (AUTO) 27.3 % (2.0-12.0); NEUTROPHILS # (AUTO) 0.7 /CMM (1.8-8.9); PLATELET COUNT (AUTO) 531 /CMM (150-450); RED BLOOD CELL COUNT(AUTO) 4.19 MIL/uL (4.5-6.0); WHITE BLOOD COUNT (AUTO) 3.8 K/uL (4.3-11.0)
[2018-06-02] MEDS: PANTOPRAZOLE 40 MG TABLET.DR PO SCH ×2 (07:30→16:27)
--- NOTE | 2018-06-02 07:30 | NUR ---
RN MS NOTES PT IN BED, AWAKE, ALERT AND ORIENTED, NO COMPLAINT OF PAIN OR ANY DISCOMFORT, RESPIRATIONS NORMAL, PICC LINE AT RIGHT UPPER ARM INTACT AND PATENT, PLAN OF CARE DISCUSSED WITH PT, VERBALIZED UNDERSTANDING, CALL LIGHT WITHIN REACH.
[2018-06-02 07:37] LABS: CALCIUM, SERUM 8.5 mg/dL (8.5-10.1)
[2018-06-02 08:06] LABS: EOSINOPHILS % (MANUAL) 3 % (0-4); LYMPHOCYTES % (MANUAL) 58 % (16-48); MONOCYTES % (MANUAL) 27 % (0-11.0); NEUTROPHILS % (MANUAL) 12 (42-76)
[2018-06-02] MEDS: PROSOURCE / PROSTAT (PYXIS) 30 ML UDC PO SCH ×2 (09:00→16:14)
[2018-06-02] MEDS: LACTOBACILLUS RHAMNOSUS GG 1 EACH CAP.SPRINK PO SCH ×2 (09:00→16:14)
[2018-06-02] MEDS: ENSURE ENLIVE CHOC 237 ML CAN PO SCH ×4 (09:00→21:00)
[2018-06-02] MEDS: predniSONE 5 MG TABLET PO SCH ×3 (09:00→21:07)
[2018-06-02] MEDS: GABAPENTIN 100 MG CAPSULE PO SCH ×3 (09:00→21:07)
[2018-06-02] MEDS: FERROUS SULFATE (325 MG) 325 MG/TAB TABLET PO SCH ×2 (09:00→16:14)
[2018-06-02] MEDS ORDERED: LIDOCAINE HCL/PF 1% 30 ML SDV ONE (13:37)
[2018-06-02] MEDS ORDERED: BUPIVACAINE MPF 0.5% W/EPI INJ 30 ML VIAL ONE ×2 (13:37→14:17)
--- NOTE | 2018-06-02 14:56 | NUR ---
RN MS NOTES PT BACK FROM SURGERY, S/P LEFT BUTTOCK WOUND DEBRIDEMENT BY DR. OLIVER, AWAKE, ALERT AND ORIENTED, NO COMPLAINT OF PAIN AT THIS TIME, RECEIVED POST OP ORDERS FROM DR. OLIVER, WOUND VAC IN PLACE, VITALS STABLE, NEEDS ATTENDED, CALL LIGHT WITHIN REACH.
[2018-06-02] MEDS: ACETAMINOPHEN 325 MG TABLET PO PRN (17:46)
--- NOTE | 2018-06-02 19:00 | NUR ---
RN MS NOTES PT IN BED, AWAKE, ALERT AND ORIENTED, NO COMPLAINT OF PAIN, NOT IN DISTRESS, WOUND VAC DRAINING WITH SEROSANGUENOUS FLUID, PM MEDS GIVEN, CALL LIGHT WITHIN REACH, NEEDS ATTENDED.
--- NOTE | 2018-06-02 19:50 | NUR ---
MS RN NOTES RECEIVED ON BED A/O X4,BREATHING REGULAR,NOT IN ANY FORM OF DISTRESS.S/P LEFT BUTTOCKS WOUND DEBRIDEMENT WITH APPLICATION OF WOUND VAC,DRAINING SERO SANGUINOUS OUTPUT.CLAIMED TOLERABLE PAIN SCALE 6/10.WITH KNOWN HX OF RIGHT BKA,PARAPLEGIC.WITH RICHEY CATH IN PLACE DRAINING CLEAR YELLOW OUTPUT.WITH RIGHT LOWER ABDOMEN ILEOSTOMY DRAINING LIQUID GREENISH OUTPUT,DRAINS 350ML THIS TIME.ON KCI MATTRESS FOR SKIN MANAGEMENT.ABLE TO REPOSITION SELF BACK TO RIGHT.ON REVERSE ISOLATION,PATIENT IS NEUTROPENIC.WILL CONTINUE TO MONITOR STATUS.
--- NOTE | 2018-06-02 21:00 | NUR ---
MS RN NOTES ENSURE NOT AVAILABLE,ITS OK WITH PATIENT,HE HAS STILL RESIDENTIAL OF ENSURE GIVEN AT 5PM
[2018-06-02] MEDS: ENOXAPARIN SODIUM 40 MG/0.4 ML DISP.SYRIN SQ SCH (21:08)
[2018-06-03] MEDS: DAKINS QUARTER STRENGTH (0.125%) 480 ML BOTTLE TOP SCH (04:54)
--- NOTE | 2018-06-03 04:54 | NUR ---
MS RN NOTES JOSÉ MIGUEL'S DRESSING CHNAGE TO LEFT BUTTOCK WOUND HELD,S/P WOUND DEBRIDEMENT WITH WOUND VAC
--- NOTE | 2018-06-03 06:23 | NUR ---
MS RN NOTES SLEPT WITH INTERVALS,PAIN TOLERABLE ON LEFT BUTTOCK,WOUND VAC DRAINS 25 ML SERO SANGUINOUS.REPOSITION SELF.RIGHT HIP REDNESS SUBSIDING.REVERSE ISOLATION DISCONTINUED,WBC IMPROVED 3.8.IN NO ACUTE DISTRESS.WILL ENDORSE TO DAY NURSE FOR AZRA.
[2018-06-03 07:22] LABS: BASOPHILS % (AUTO) 0.1 % (0.0-2.0); EOSINOPHILS % (AUTO) 0.6 % (0.0-6.0); HEMATOCRIT 31 % (39-51); HEMOGLOBIN 10.1 g/dL (13.5-17.5); LYMPHOCYTES # (AUTO) 1.7 /CMM (0.8-4.8); MEAN CORPUSCULAR HGB CONC 33 g/dl (31.0-36.0); MEAN CORPUSCULAR VOLUME 74 fL (80-96); MONOCYTES # (AUTO) 1.1 /CMM (0.1-1.30); MONOCYTES % (AUTO) 33.8 % (2.0-12.0); NEUTROPHILS # (AUTO) 0.5 /CMM (1.8-8.9); NEUTROPHILS % (AUTO) 15.5 % (43.0-81.0); PLATELET COUNT (AUTO) 518 /CMM (150-450); RED BLOOD CELL COUNT(AUTO) 4.13 MIL/uL (4.5-6.0); WHITE BLOOD COUNT (AUTO) 3.4 K/uL (4.3-11.0)
--- NOTE | 2018-06-03 07:33 | NUR ---
RN OPENING NOTES RECEIVED PATIENT LAYING IN BED RESTING COMFORTABLY W/ HOB SLIGHTLY ELEVATED. A/O X4, ABLE TO MAKE NEEDS KNOWN. NO ACUTE DISTRESS NOTED. NO SOB. PAIN 4/10 ON LEFT BUTTOCKS, OFFERED PAIN MEDS BUT REFUSED AT THE MOMENT, "TOLERABLE" PER PATIENT. IV ACCESS ON COOPER PICC LINE INTACT AND PATENT. DRESSING ON LEFT BUTTOCKS CLEAN AND DRY, WOUND VAC DRAINING SEROSANGUINOUS OUTPUT. SAFETY MEASURES ARE IN PLACE. RICHEY CATHETER IN PLACE, DRAINING CLEAR YELLOW URINE. ILEOSTOMY BAG IN PLACE. BED IS IN ITS LOCKED AND LOWEST POSITION. INSTRUCTED PATIENT TO USE CALL LIGHT WHEN ASSISTANCE IS NEEDED, SIDERAILS UP. CALL LIGHT IS LEFT WITHIN REACH. WILL CONTINUE TO MONITOR ACCORDINGLY.
[2018-06-03 08:00] VITALS: BP 107/67
[2018-06-03] MEDS: PROSOURCE / PROSTAT (PYXIS) 30 ML UDC PO SCH (09:10)
[2018-06-03] MEDS: ENSURE ENLIVE CHOC 237 ML CAN PO SCH ×2 (09:10→13:23)
[2018-06-03] MEDS: FERROUS SULFATE (325 MG) 325 MG/TAB TABLET PO SCH (09:10)
[2018-06-03] MEDS: LACTOBACILLUS RHAMNOSUS GG 1 EACH CAP.SPRINK PO SCH (09:10)
[2018-06-03] MEDS: predniSONE 5 MG TABLET PO SCH (09:11)
[2018-06-03] MEDS: PANTOPRAZOLE 40 MG TABLET.DR PO SCH (09:11)
[2018-06-03] MEDS: GABAPENTIN 100 MG CAPSULE PO SCH ×2 (09:12→15:09)
[2018-06-03] MEDS: PIPERACILLIN /TAZOBACTAM 3.375 G in IV D5W 100 ML IV SCH (09:12)
[2018-06-03 09:35] LABS: EOSINOPHILS % (MANUAL) 1 % (0-4); LYMPHOCYTES % (MANUAL) 62 % (16-48); MONOCYTES % (MANUAL) 15 % (0-11.0); NEUTROPHILS % (MANUAL) 22 (42-76)
[2018-06-03] MEDS ORDERED: PIPE3.379 IV (10:25)
[2018-06-03] MEDS: LOPERAMIDE HCL (2 MG CAP) 2 MG CAPSULE PO PRN (11:32)
--- NOTE | 2018-06-03 13:05 | NUR ---
METALLURGICAL INSPECTOR PER JORDAN AT OUT PATIENT WOUND CLINIC, PATIENT TO BE DISCHARGED WITH HOME VAC AND CURRENT DRESSING IN PLACE, HOME VAC WILL BE DELIVERED TO HOSPITAL ROOM, HOSPITAL VAC TO BE DISCONNECTED, HOME VAC TO BE CONNECTED BY NURSING PRIOR TO DISCHARGE. PATIENT CURRENTLY IS ON SERVICE WITH HOME HEALTH SERVICES AND CASE MANAGEMENT WILL PROVIDE PHONE NUMBER. ALL ORDERS FOR ABOVE WILL BE PLACED BY BENJI SAWYER PER JORDAN AT THE WOUND CLINIC. ALL DISCUSSED WITH PRIMARY RN WELL BUSINESS AND MARKETING TEACHER.
[2018-06-03] MEDS ORDERED: PIPERACILLIN /TAZOBACTAM 3.375 G in IV D5W 50 ML IV ONE (14:00)
--- NOTE | 2018-06-03 15:25 | NUR ---
SUKI JACK FROM OUTPATIENT CLINIC AT BEDSIDE SWITCHING THE WOUND VAC, INSTRUCTIONS WAS GIVEN TO PATIENT, FOLLOW UP AT WOUND CLINIC WITH DR OLIVER ON WEDNESDAY.
--- NOTE | 2018-06-03 15:29 | NUR ---
HOSPITAL'S WOUND VAC PLACED IN DIRTY UTILITY ROOM. CALLED VANE FROM [employer] FOR TELEPHONE DIRECTORY DISTRIBUTOR DRIVER.
[2018-06-03 16:00] VITALS: BP 102/68
--- NOTE | 2018-06-03 16:28 | NUR ---
millie sarabia per dr montalvo
--- NOTE | 2018-06-03 16:45 | NUR ---
DC RICHEY, NO COMPLICATIONS, TOLERATED WELL
--- NOTE | 2018-06-03 17:00 | NUR ---
DISCHARGE PATIENT IN STABLE CONDITION, PICKED UP BY SON, VIA WHEELCHAIR, ACCOMPANIED BY PRIMARY RN TO THE LOBBY. DISCHARGE INSTRUCTIONS GIVEN, VERBALIZED UNDERSTANDING, DC PAPERWORK GIVEN. ALL BELONGINGS RETURNED, FORM SIGNED. PATIENT'S OWN WOUND VAC IN PLACE, SET UP BY SUKI JACK, WORKING PROPERLY, ON CONTINUES AND 125mmHg ORDERED. KEPT PICC LINE, PATIENT TO CONTINUE ABX WITH HOMEHEALTH. SKIN PHOTOS TAKEN, LEFT BUTTOCK UNABLE TO TAKE PICTURE DUE TO NON REMOVABLE DRESSING WITH WOUND VAC. NAME BAND REMOVED.
== END 2018-06-03 17:46 | disposition home health service (06) | DRG 579 ==
LOC: ER 13:24 → MED 16:00
PROVIDERS: ADMIT Internal Medicine; ATTEND Internal Medicine
PROC: 0KBP0ZZ Excision of Left Hip Muscle, Open Approach (ICD-10-PCS; principal; 2018-05-26)
PROC: 0DB68ZX Excision of Stomach, Via Natural or Artificial Opening Endoscopic, Diagnostic (ICD-10-PCS; 2018-05-30)
PROC: 0DB78ZX Excision of Stomach, Pylorus, Via Natural or Artificial Opening Endoscopic, Diagnostic (ICD-10-PCS; 2018-05-30)
PROC: 0DJD8ZZ Inspection of Lower Intestinal Tract, Via Natural or Artificial Opening Endoscopic (ICD-10-PCS; 2018-05-30)
PROC: 02HV33Z Insertion of Infusion Device into Superior Vena Cava, Percutaneous Approach (ICD-10-PCS; 2018-05-31)
PROC: B548ZZA Ultrasonography of Superior Vena Cava, Guidance (ICD-10-PCS; 2018-05-31)
PROC: 0KBP0ZZ Excision of Left Hip Muscle, Open Approach (ICD-10-PCS; 2018-06-02)
DX: L89.324 Pressure ulcer of left buttock, stage 4 (principal); N17.0 Acute kidney failure with tubular necrosis; E43 Unspecified severe protein-calorie malnutrition; N39.0 Urinary tract infection, site not specified; E87.1 Hypo-osmolality and hyponatremia; D68.69 Other thrombophilia; G82.20 Paraplegia, unspecified; J93.83 Other pneumothorax; E87.2 Acidosis; D68.59 Other primary thrombophilia; C91.10 Chronic lymphocytic leukemia of B-cell type not having achieved remission; D50.9 Iron deficiency anemia, unspecified; E88.09 Other disorders of plasma-protein metabolism, not elsewhere classified; M62.50 Muscle wasting and atrophy, not elsewhere classified, unspecified site; K21.9 Gastro-esophageal reflux disease without esophagitis; N31.9 Neuromuscular dysfunction of bladder, unspecified; Z92.3 Personal history of irradiation; Z92.21 Personal history of antineoplastic chemotherapy; Z89.511 Acquired absence of right leg below knee; Z87.440 Personal history of urinary (tract) infections; Z87.891 Personal history of nicotine dependence; Z88.0 Allergy status to penicillin; M06.9 Rheumatoid arthritis, unspecified; D47.3 Essential (hemorrhagic) thrombocythemia; J44.9 Chronic obstructive pulmonary disease, unspecified; R73.03 Prediabetes; Z68.20 Body mass index [BMI] 20.0-20.9, adult; B96.20 Unspecified Escherichia coli [E. coli] as the cause of diseases classified elsewhere; B96.5 Pseudomonas (aeruginosa) (mallei) (pseudomallei) as the cause of diseases classified elsewhere; R13.10 Dysphagia, unspecified; K29.70 Gastritis, unspecified, without bleeding; K44.9 Diaphragmatic hernia without obstruction or gangrene; K31.7 Polyp of stomach and duodenum; Z93.2 Ileostomy status; E86.1 Hypovolemia
CPT/HCPCS: 36415; 36569; 71045-TC; 80048-TC; 80061-TC; 80076-TC; 80202-TC; 81000-TC; 82247-TC; 82248-TC; 82272-TC; 82728-TC; 82784; 83540-TC; 83605-TC; 83735-TC; 84100-TC; 84134-TC; 84155; 84165; 85025-TC; 85610-TC; 85730-TC; 86334; 87040-TC; 87070-TC; 87081-TC; 87086-TC; 87186-TC; 88305-TC; 88313-TC; 88342; 92611-TC; A4606; A6253; A6402; A6403; C1751; C9113; G0378; J1650; J2543; J2704; J3370; J3475; J3490; J7030; J7050; J7060; J7512; Q9967; Z7610

== ENCOUNTER 2018-06-06 12:38 | Outpatient (CLI) | payer MEDICARE, OTHER ==
[~2018-06-06 12:38] MED LIST: BUPIVACAINE MPF 0.5% W/EPI INJ 30 ML VIAL ONE; GABA-532 PO; PANT40TA2 PO; PIPE3.379 IV; PRED5TAB48 PO
== END 2018-06-06 23:59 | disposition home health service (06) ==
LOC: WOU 12:38
PROVIDERS: ATTEND Surgery
DX: L89.324 Pressure ulcer of left buttock, stage 4 (principal); R26.2 Difficulty in walking, not elsewhere classified; E44.0 Moderate protein-calorie malnutrition; Z89.511 Acquired absence of right leg below knee
CPT/HCPCS: 11043; 11046; 97605; A6402 ×2; Z7610; J3490

== ENCOUNTER 2018-06-09 12:07 | Outpatient (CLI) | payer MEDICARE, OTHER ==
[~2018-06-09 12:07] MED LIST changes: -BUPIVACAINE MPF 0.5% W/EPI INJ 30 ML VIAL ONE
== END 2018-06-09 23:59 | disposition home or self-care (01) ==
LOC: MSC 12:07
PROVIDERS: ATTEND Internal Medicine
DX: L89.154 Pressure ulcer of sacral region, stage 4 (principal); C91.Z0 Other lymphoid leukemia not having achieved remission; D70.9 Neutropenia, unspecified; M06.9 Rheumatoid arthritis, unspecified; D64.89 Other specified anemias; R47.02 Dysphasia; K31.9 Disease of stomach and duodenum, unspecified; K31.84 Gastroparesis; Z89.511 Acquired absence of right leg below knee; G82.20 Paraplegia, unspecified; E43 Unspecified severe protein-calorie malnutrition; E88.09 Other disorders of plasma-protein metabolism, not elsewhere classified; N31.9 Neuromuscular dysfunction of bladder, unspecified; R73.03 Prediabetes; Z96.0 Presence of urogenital implants

== ENCOUNTER 2018-06-09 12:38 | Outpatient (CLI) | END 2018-06-09 23:59 | disposition home health service (06) | DX: L89.324 Pressure ulcer of left buttock, stage 4 (principal); Z88.1 Allergy status to other antibiotic agents; Z91.040 Latex allergy status; G82.20 Paraplegia, unspecified; Z89.511 Acquired absence of right leg below knee; M06.9 Rheumatoid arthritis, unspecified; Z85.6 Personal history of leukemia; E44.0 Moderate protein-calorie malnutrition; Z68.1 Body mass index [BMI] 19.9 or less, adult; R26.2 Difficulty in walking, not elsewhere classified ==

== ENCOUNTER 2018-06-13 10:53 | Outpatient (CLI) | payer MEDICARE, OTHER | END 2018-06-13 23:59 | disposition home health service (06) | LOC: WOU 10:53 | PROVIDERS: ATTEND Surgery | DX: L89.324 Pressure ulcer of left buttock, stage 4 (principal); R26.2 Difficulty in walking, not elsewhere classified; E44.0 Moderate protein-calorie malnutrition; G82.20 Paraplegia, unspecified; M06.9 Rheumatoid arthritis, unspecified; C95.90 Leukemia, unspecified not having achieved remission; D70.9 Neutropenia, unspecified; R73.03 Prediabetes; Z89.511 Acquired absence of right leg below knee; Z93.2 Ileostomy status | CPT/HCPCS: 11043; 11046; 97605; A6402; Z7610 ==

== ENCOUNTER 2018-06-16 10:58 | Outpatient (CLI) | payer MEDICARE, OTHER | END 2018-06-16 23:59 | disposition home or self-care (01) | LOC: WOU 10:58 | PROVIDERS: ATTEND Surgery | DX: L89.324 Pressure ulcer of left buttock, stage 4 (principal); E44.0 Moderate protein-calorie malnutrition; R26.2 Difficulty in walking, not elsewhere classified; G82.20 Paraplegia, unspecified; Z85.6 Personal history of leukemia; Z89.511 Acquired absence of right leg below knee; M06.9 Rheumatoid arthritis, unspecified; Z88.1 Allergy status to other antibiotic agents; Z91.040 Latex allergy status | CPT/HCPCS: 11043; 97606-TC; A6402 ==

== ENCOUNTER 2018-06-20 10:48 | Outpatient (CLI) | payer MEDICARE, OTHER | END 2018-06-20 23:59 | disposition home health service (06) | LOC: WOU 10:48 | PROVIDERS: ATTEND Surgery | DX: L89.324 Pressure ulcer of left buttock, stage 4 (principal); G82.20 Paraplegia, unspecified; R26.2 Difficulty in walking, not elsewhere classified; E44.0 Moderate protein-calorie malnutrition; M06.9 Rheumatoid arthritis, unspecified; C95.90 Leukemia, unspecified not having achieved remission; D70.9 Neutropenia, unspecified; R73.03 Prediabetes; Z93.2 Ileostomy status; Z89.511 Acquired absence of right leg below knee | CPT/HCPCS: 11043; 97605-TC; A6402 ==

== ENCOUNTER 2018-06-20 12:39 | Outpatient (CLI) | payer MEDICARE, OTHER ==
[2018-06-20 12:41] VITALS: BP 110/69
== END 2018-06-20 23:59 | disposition home or self-care (01) ==
LOC: MSC 12:39
PROVIDERS: ATTEND Internal Medicine
DX: J06.9 Acute upper respiratory infection, unspecified (principal); R30.0 Dysuria; Z87.440 Personal history of urinary (tract) infections; C91.90 Lymphoid leukemia, unspecified not having achieved remission; D70.9 Neutropenia, unspecified; M06.9 Rheumatoid arthritis, unspecified; D64.89 Other specified anemias; L89.154 Pressure ulcer of sacral region, stage 4; K31.9 Disease of stomach and duodenum, unspecified; K31.84 Gastroparesis; G82.20 Paraplegia, unspecified; M62.50 Muscle wasting and atrophy, not elsewhere classified, unspecified site; E43 Unspecified severe protein-calorie malnutrition; E88.09 Other disorders of plasma-protein metabolism, not elsewhere classified; N31.9 Neuromuscular dysfunction of bladder, unspecified; R73.03 Prediabetes; R47.02 Dysphasia; Z93.2 Ileostomy status; Z96.0 Presence of urogenital implants

== ENCOUNTER 2018-06-27 12:35 | Outpatient (CLI) | payer MEDICARE, OTHER | END 2018-06-27 23:59 | disposition home or self-care (01) | LOC: WOU 12:35 | PROVIDERS: ATTEND Surgery | DX: L89.324 Pressure ulcer of left buttock, stage 4 (principal); E44.0 Moderate protein-calorie malnutrition; R26.2 Difficulty in walking, not elsewhere classified; N39.0 Urinary tract infection, site not specified; M06.9 Rheumatoid arthritis, unspecified; G82.20 Paraplegia, unspecified; C95.90 Leukemia, unspecified not having achieved remission; R73.03 Prediabetes; Z89.511 Acquired absence of right leg below knee; Z93.2 Ileostomy status | CPT/HCPCS: 11043; A6402; J3490 ==

== ENCOUNTER 2018-06-27 13:58 | Outpatient (CLI) | payer MEDICARE, OTHER ==
[2018-06-27 14:14] VITALS: BP 107/66
== END 2018-06-27 23:59 | disposition home or self-care (01) ==
LOC: MSC 13:58
PROVIDERS: ATTEND Nurse Practitioner Acute Care
DX: N39.0 Urinary tract infection, site not specified (principal); B96.20 Unspecified Escherichia coli [E. coli] as the cause of diseases classified elsewhere; M06.9 Rheumatoid arthritis, unspecified; D64.89 Other specified anemias; G82.20 Paraplegia, unspecified; M62.838 Other muscle spasm; E43 Unspecified severe protein-calorie malnutrition; E88.09 Other disorders of plasma-protein metabolism, not elsewhere classified; M62.50 Muscle wasting and atrophy, not elsewhere classified, unspecified site; N31.9 Neuromuscular dysfunction of bladder, unspecified; L89.324 Pressure ulcer of left buttock, stage 4; C94.80 Other specified leukemias not having achieved remission; J44.9 Chronic obstructive pulmonary disease, unspecified; Z89.511 Acquired absence of right leg below knee; Z99.3 Dependence on wheelchair; Z99.81 Dependence on supplemental oxygen; Z96.0 Presence of urogenital implants; Z93.3 Colostomy status

== ENCOUNTER 2018-07-04 11:15 | Outpatient (CLI) | payer MEDICARE, OTHER | END 2018-07-04 23:59 | disposition home or self-care (01) | LOC: CT 11:15 | PROVIDERS: ATTEND Podiatrist Foot & Ankle Surgery | DX: L89.229 Pressure ulcer of left hip, unspecified stage (principal); Z90.49 Acquired absence of other specified parts of digestive tract | CPT/HCPCS: 72192-TC ==

== ENCOUNTER 2018-07-04 12:00 | Outpatient (CLI) | payer MEDICARE, OTHER | END 2018-07-04 23:59 | disposition home health service (06) | LOC: WOU 12:00 | PROVIDERS: ATTEND Surgery | DX: L89.324 Pressure ulcer of left buttock, stage 4 (principal); R26.2 Difficulty in walking, not elsewhere classified; E44.0 Moderate protein-calorie malnutrition; N39.0 Urinary tract infection, site not specified; Z89.511 Acquired absence of right leg below knee; M06.9 Rheumatoid arthritis, unspecified; C95.90 Leukemia, unspecified not having achieved remission; G82.20 Paraplegia, unspecified; R73.03 Prediabetes; Z93.2 Ileostomy status | CPT/HCPCS: 11043; 11046; 97605; A6402 ×2; Z7610 ×2 ==

== ENCOUNTER 2018-07-11 12:30 | Outpatient (CLI) | payer MEDICARE, OTHER | END 2018-07-11 23:59 | disposition home health service (06) | LOC: WOU 12:30 | PROVIDERS: ATTEND Surgery | DX: L89.324 Pressure ulcer of left buttock, stage 4 (principal); R26.2 Difficulty in walking, not elsewhere classified; E44.0 Moderate protein-calorie malnutrition; G82.20 Paraplegia, unspecified; M06.9 Rheumatoid arthritis, unspecified; C95.90 Leukemia, unspecified not having achieved remission; Z89.511 Acquired absence of right leg below knee; R73.03 Prediabetes; Z99.3 Dependence on wheelchair; Z93.2 Ileostomy status | CPT/HCPCS: 11043; A6402 ==

== ENCOUNTER 2018-07-18 12:30 | Outpatient (CLI) | payer MEDICARE, OTHER | END 2018-07-18 23:59 | disposition home health service (06) | LOC: WOU 12:30 | PROVIDERS: ATTEND Surgery | DX: L89.324 Pressure ulcer of left buttock, stage 4 (principal); S81.012A Laceration without foreign body, left knee, initial encounter; R26.2 Difficulty in walking, not elsewhere classified; G82.20 Paraplegia, unspecified; E44.0 Moderate protein-calorie malnutrition; Z99.3 Dependence on wheelchair; M06.9 Rheumatoid arthritis, unspecified; C95.90 Leukemia, unspecified not having achieved remission; R73.03 Prediabetes; Z93.2 Ileostomy status; Z89.511 Acquired absence of right leg below knee; X58.XXXA Exposure to other specified factors, initial encounter; Y92.89 Other specified places as the place of occurrence of the external cause | CPT/HCPCS: 11043; 11046 ×2; 97605; A6402 ×2; Z7610 ==

== ENCOUNTER 2018-07-22 23:04 | Emergency (ER) | payer MEDICARE, OTHER ==
[~2018-07-22] VITALS: Ht 170.2 cm; Wt 65.8 kg
--- NOTE | 2018-07-22 23:15 | NUR ---
Pt came to emergency dept. complaining of abnormal labs, was sent from [facility] saying that his Potassium of 6.1. Pt is AAXO4. Respirations even and unlabored. Pt put on the monitor and pulse ox. Pending eval from ER .
--- NOTE | 2018-07-22 23:30 | NUR ---
SILVERIO Angulo at bedside for Eval.
--- NOTE | 2018-07-22 23:30 | NUR ---
JIMMY Angulo aware of pt tachycardic on the monitor.
--- NOTE | 2018-07-22 23:38 | NUR ---
Math And Physics Instructor at bedside for lab draw, labs sent.
[2018-07-22 23:58] LABS: CALCIUM, SERUM 8.9 mg/dL (8.5-10.1); CREATININE 0.9 mg/dL (0.6-1.3); POTASSIUM 4.3 mmol/L (3.5-5.1)
--- NOTE | 2018-07-23 00:21 | NUR ---
Patient discharged to home in stable condition. Written and verbal after care instructions given. Patient verbalizes understanding of instruction.
[2018-07-23 00:24] VITALS: BP 127/74
== END 2018-07-23 00:25 | disposition home or self-care (01) ==
LOC: ER 23:07
DX: E87.5 Hyperkalemia (principal); J44.9 Chronic obstructive pulmonary disease, unspecified; G89.29 Other chronic pain; M54.9 Dorsalgia, unspecified; Z87.440 Personal history of urinary (tract) infections; Z85.6 Personal history of leukemia; Z86.19 Personal history of other infectious and parasitic diseases; Z89.511 Acquired absence of right leg below knee; Z91.040 Latex allergy status; Z88.1 Allergy status to other antibiotic agents
CPT/HCPCS: 36415; 80048; 93005; 99284; A4606

== ENCOUNTER 2018-08-01 12:45 | Outpatient (CLI) | payer MEDICARE, OTHER | END 2018-08-01 23:59 | disposition home health service (06) | LOC: WOU 12:45 | PROVIDERS: ATTEND Surgery | DX: L89.324 Pressure ulcer of left buttock, stage 4 (principal); E44.0 Moderate protein-calorie malnutrition; Z68.1 Body mass index [BMI] 19.9 or less, adult; R26.2 Difficulty in walking, not elsewhere classified; G82.20 Paraplegia, unspecified; C95.90 Leukemia, unspecified not having achieved remission; M06.9 Rheumatoid arthritis, unspecified; Z89.511 Acquired absence of right leg below knee; R73.03 Prediabetes | CPT/HCPCS: 15271; A6402; Q4110 ==

== ENCOUNTER 2018-08-01 13:52 | Outpatient (CLI) | payer MEDICARE, OTHER ==
[2018-08-01 14:10] VITALS: BP 133/87
== END 2018-08-01 23:59 | disposition home or self-care (01) ==
LOC: MSC 13:52
PROVIDERS: ATTEND Nurse Practitioner Acute Care
DX: N39.0 Urinary tract infection, site not specified (principal); B96.20 Unspecified Escherichia coli [E. coli] as the cause of diseases classified elsewhere; Z16.11 Resistance to penicillins; Z16.24 Resistance to multiple antibiotics; M06.9 Rheumatoid arthritis, unspecified; D64.9 Anemia, unspecified; M62.838 Other muscle spasm; J44.9 Chronic obstructive pulmonary disease, unspecified; G82.20 Paraplegia, unspecified; E44.0 Moderate protein-calorie malnutrition; N31.9 Neuromuscular dysfunction of bladder, unspecified; Z96.0 Presence of urogenital implants; Z89.511 Acquired absence of right leg below knee; Z79.899 Other long term (current) drug therapy
CPT/HCPCS: A6402

== ENCOUNTER 2018-08-08 12:35 | Outpatient (CLI) | payer MEDICARE, OTHER | END 2018-08-08 23:59 | disposition home health service (06) | LOC: WOU 12:35 | PROVIDERS: ATTEND Surgery | DX: L89.324 Pressure ulcer of left buttock, stage 4 (principal); G82.20 Paraplegia, unspecified; R26.2 Difficulty in walking, not elsewhere classified; E44.0 Moderate protein-calorie malnutrition; M06.9 Rheumatoid arthritis, unspecified; C95.90 Leukemia, unspecified not having achieved remission; Z89.511 Acquired absence of right leg below knee; Z93.2 Ileostomy status; Z79.899 Other long term (current) drug therapy | CPT/HCPCS: 15271; A6402 ==

== ENCOUNTER 2018-08-15 12:34 | Outpatient (CLI) | payer MEDICARE, OTHER | END 2018-08-15 23:59 | disposition home health service (06) | LOC: WOU 12:34 | PROVIDERS: ATTEND Surgery | DX: L89.324 Pressure ulcer of left buttock, stage 4 (principal); R26.2 Difficulty in walking, not elsewhere classified; E44.0 Moderate protein-calorie malnutrition; G82.20 Paraplegia, unspecified; M06.9 Rheumatoid arthritis, unspecified; C95.90 Leukemia, unspecified not having achieved remission; R73.03 Prediabetes; Z89.511 Acquired absence of right leg below knee; Z93.2 Ileostomy status; Z79.899 Other long term (current) drug therapy; Z99.3 Dependence on wheelchair | CPT/HCPCS: 11043; 11046; A6402 ×2 ==

== ENCOUNTER 2018-08-22 12:30 | Outpatient (CLI) | payer MEDICARE, OTHER | END 2018-08-22 23:59 | disposition home health service (06) | LOC: WOU 12:30 | PROVIDERS: ATTEND Surgery | DX: L89.324 Pressure ulcer of left buttock, stage 4 (principal); R26.2 Difficulty in walking, not elsewhere classified; G82.20 Paraplegia, unspecified; E44.0 Moderate protein-calorie malnutrition; C95.90 Leukemia, unspecified not having achieved remission; M06.9 Rheumatoid arthritis, unspecified; Z93.2 Ileostomy status; R73.03 Prediabetes; Z89.511 Acquired absence of right leg below knee | CPT/HCPCS: 15271; A6402; Q4110 ==

== ENCOUNTER 2018-08-22 13:55 | Outpatient (CLI) | payer MEDICARE, OTHER ==
[2018-08-22 11:06] VITALS: BP 109/68
== END 2018-08-22 23:59 | disposition home or self-care (01) ==
LOC: MSC 13:55
PROVIDERS: ATTEND Nurse Practitioner Acute Care
DX: R50.9 Fever, unspecified (principal); Z87.440 Personal history of urinary (tract) infections; M06.9 Rheumatoid arthritis, unspecified; M54.89 Other dorsalgia; M62.838 Other muscle spasm; J44.9 Chronic obstructive pulmonary disease, unspecified; G82.20 Paraplegia, unspecified; N31.9 Neuromuscular dysfunction of bladder, unspecified; D64.9 Anemia, unspecified; Z89.519 Acquired absence of unspecified leg below knee; Z79.52 Long term (current) use of systemic steroids; Z79.899 Other long term (current) drug therapy; Z96.0 Presence of urogenital implants; D70.9 Neutropenia, unspecified

== ENCOUNTER 2018-08-22 14:46 | Outpatient (CLI) | payer MEDICARE, OTHER | END 2018-08-22 23:59 | disposition home or self-care (01) | LOC: LAB 14:46 | PROVIDERS: ATTEND Nurse Practitioner Acute Care | DX: R78.81 Bacteremia (principal) | CPT/HCPCS: 87040-TC ==

== ENCOUNTER 2018-08-29 12:30 | Outpatient (CLI) | payer MEDICARE, OTHER | END 2018-08-29 23:59 | disposition home health service (06) | LOC: WOU 12:30 | PROVIDERS: ATTEND Surgery | DX: L89.324 Pressure ulcer of left buttock, stage 4 (principal); E44.0 Moderate protein-calorie malnutrition; R26.2 Difficulty in walking, not elsewhere classified; N39.0 Urinary tract infection, site not specified; G82.20 Paraplegia, unspecified; M06.9 Rheumatoid arthritis, unspecified; C95.90 Leukemia, unspecified not having achieved remission; Z89.511 Acquired absence of right leg below knee; Z93.2 Ileostomy status; Z79.899 Other long term (current) drug therapy | CPT/HCPCS: 15271; A6402 ==

== ENCOUNTER 2018-09-05 12:30 | Outpatient (CLI) | payer MEDICARE, OTHER | END 2018-09-05 23:59 | disposition home health service (06) | LOC: WOU 12:30 | PROVIDERS: ATTEND Surgery | DX: L89.324 Pressure ulcer of left buttock, stage 4 (principal); R26.2 Difficulty in walking, not elsewhere classified; E44.0 Moderate protein-calorie malnutrition; M06.9 Rheumatoid arthritis, unspecified; G82.20 Paraplegia, unspecified; C95.90 Leukemia, unspecified not having achieved remission; Z89.511 Acquired absence of right leg below knee; Z93.2 Ileostomy status; Z79.899 Other long term (current) drug therapy | CPT/HCPCS: 15271; A6402; Q4110 ==

== ENCOUNTER 2018-09-12 12:35 | Outpatient (CLI) | payer MEDICARE, OTHER ==
[2018-09-12 14:22] LABS: ALBUMIN 2.3 g/dL (3.4-5.0); BILIRUBIN,TOTAL 0.2 mg/dL (0.2-1.0); CALCIUM, SERUM 8.9 mg/dL (8.5-10.1); CREATININE 1.1 mg/dL (0.6-1.3); POTASSIUM 4.9 mmol/L (3.5-5.1)
[2018-09-12 14:30] LABS: BASOPHILS % (AUTO) 0.4 % (0.0-2.0); EOSINOPHILS % (AUTO) 1.3 % (0.0-6.0); HEMATOCRIT 36 % (39-51); HEMOGLOBIN 11.1 g/dL (13.5-17.5); LYMPHOCYTES % (AUTO) 45.3 % (20.0-44.0); MEAN CORPUSCULAR HGB CONC 31 g/dl (31.0-36.0); MEAN CORPUSCULAR VOLUME 71 fL (80-96); MONOCYTES # (AUTO) 0.8 /CMM (0.1-1.30); MONOCYTES % (AUTO) 18.8 % (2.0-12.0); NEUTROPHILS # (AUTO) 1.5 /CMM (1.8-8.9); NEUTROPHILS % (AUTO) 34.2 % (43.0-81.0); PLATELET COUNT (AUTO) 528 /CMM (150-450); RED BLOOD CELL COUNT(AUTO) 5.02 MIL/uL (4.5-6.0); WHITE BLOOD COUNT (AUTO) 4.3 K/uL (4.3-11.0)
[2018-09-12 16:16] LABS: BAND % (MANUAL) 2 % (0.0-5.0); LYMPHOCYTES % (MANUAL) 53 % (16-48); MONOCYTES % (MANUAL) 16 % (0-11.0); NEUTROPHILS % (MANUAL) 29 (42-76)
== END 2018-09-12 23:59 | disposition home health service (06) ==
LOC: WOU 12:35
PROVIDERS: ATTEND Surgery
DX: L89.324 Pressure ulcer of left buttock, stage 4 (principal); R26.2 Difficulty in walking, not elsewhere classified; E44.0 Moderate protein-calorie malnutrition; G82.20 Paraplegia, unspecified; C95.90 Leukemia, unspecified not having achieved remission; Z89.511 Acquired absence of right leg below knee; Z93.2 Ileostomy status; Z79.899 Other long term (current) drug therapy
CPT/HCPCS: 15271; 36415; 80053; 85025; Q4110

== ENCOUNTER 2018-09-19 11:22 | Outpatient (CLI) | payer MEDICARE, OTHER | END 2018-09-19 23:59 | disposition home or self-care (01) | LOC: CT 11:22 | PROVIDERS: ATTEND Podiatrist Foot & Ankle Surgery | DX: S32.139A Unspecified Zone III fracture of sacrum, initial encounter for closed fracture (principal); L89.229 Pressure ulcer of left hip, unspecified stage; J98.11 Atelectasis; M47.814 Spondylosis without myelopathy or radiculopathy, thoracic region; M25.78 Osteophyte, vertebrae; M43.27 Fusion of spine, lumbosacral region; I70.0 Atherosclerosis of aorta; M51.34 Other intervertebral disc degeneration, thoracic region; M48.04 Spinal stenosis, thoracic region; M96.1 Postlaminectomy syndrome, not elsewhere classified; Z90.49 Acquired absence of other specified parts of digestive tract; X58.XXXA Exposure to other specified factors, initial encounter; Y93.89 Activity, other specified; Y92.89 Other specified places as the place of occurrence of the external cause; Y99.8 Other external cause status | CPT/HCPCS: 71045-TC; 72110-TC; 72192-TC ==

== ENCOUNTER 2018-09-19 12:15 | Outpatient (CLI) | payer MEDICARE, OTHER | END 2018-09-19 23:59 | disposition home health service (06) | LOC: WOU 12:15 | PROVIDERS: ATTEND Surgery | DX: L89.324 Pressure ulcer of left buttock, stage 4 (principal); E44.0 Moderate protein-calorie malnutrition; R26.2 Difficulty in walking, not elsewhere classified; M62.838 Other muscle spasm; M54.5 Low back pain; G82.20 Paraplegia, unspecified; Z93.2 Ileostomy status; Z89.511 Acquired absence of right leg below knee | CPT/HCPCS: 11043; 11046; A6402 ==

== ENCOUNTER 2018-09-26 12:30 | Outpatient (CLI) | payer MEDICARE, OTHER | END 2018-09-26 23:59 | disposition home health service (06) | LOC: WOU 12:30 | PROVIDERS: ATTEND Surgery | DX: L89.324 Pressure ulcer of left buttock, stage 4 (principal); E44.0 Moderate protein-calorie malnutrition; R26.2 Difficulty in walking, not elsewhere classified; G82.20 Paraplegia, unspecified; M06.9 Rheumatoid arthritis, unspecified; Z93.2 Ileostomy status; Z89.511 Acquired absence of right leg below knee; Z79.899 Other long term (current) drug therapy | CPT/HCPCS: 11043; 11046; 87070; 87075; 87077; 87186 ×2; 97605; A6402 ==

== ENCOUNTER 2018-10-06 12:30 | Outpatient (CLI) | payer MEDICARE, OTHER | END 2018-10-06 23:59 | disposition home health service (06) | LOC: WOU 12:30 | PROVIDERS: ATTEND Surgery | DX: L89.324 Pressure ulcer of left buttock, stage 4 (principal); E44.0 Moderate protein-calorie malnutrition; Z68.1 Body mass index [BMI] 19.9 or less, adult; M06.9 Rheumatoid arthritis, unspecified; Z79.52 Long term (current) use of systemic steroids; Z85.6 Personal history of leukemia; Z93.1 Gastrostomy status; Z90.49 Acquired absence of other specified parts of digestive tract; G82.20 Paraplegia, unspecified; Z89.511 Acquired absence of right leg below knee; Z88.1 Allergy status to other antibiotic agents; Z91.040 Latex allergy status; Z99.3 Dependence on wheelchair; R26.2 Difficulty in walking, not elsewhere classified; G89.29 Other chronic pain; M54.9 Dorsalgia, unspecified | CPT/HCPCS: 11043; 11046; 97605; A6402 ==

== ENCOUNTER 2018-10-12 10:05 | Outpatient (CLI) | payer MEDICARE, OTHER | END 2018-10-12 23:59 | disposition home or self-care (01) | LOC: WOU 10:05 | PROVIDERS: ATTEND Registered Nurse | DX: L89.224 Pressure ulcer of left hip, stage 4 (principal); M86.8X8 Other osteomyelitis, other site; B96.20 Unspecified Escherichia coli [E. coli] as the cause of diseases classified elsewhere; B96.5 Pseudomonas (aeruginosa) (mallei) (pseudomallei) as the cause of diseases classified elsewhere; R94.8 Abnormal results of function studies of other organs and systems; Z89.511 Acquired absence of right leg below knee; M06.9 Rheumatoid arthritis, unspecified; J44.9 Chronic obstructive pulmonary disease, unspecified; N31.9 Neuromuscular dysfunction of bladder, unspecified; G82.20 Paraplegia, unspecified; C91.10 Chronic lymphocytic leukemia of B-cell type not having achieved remission | CPT/HCPCS: A6402; G0463 ==

== ENCOUNTER 2018-10-13 12:30 | Outpatient (CLI) | payer MEDICARE, OTHER | END 2018-10-13 23:59 | disposition home health service (06) | LOC: WOU 12:30 | PROVIDERS: ATTEND Surgery | DX: L89.324 Pressure ulcer of left buttock, stage 4 (principal); E44.0 Moderate protein-calorie malnutrition; Z68.1 Body mass index [BMI] 19.9 or less, adult; R26.2 Difficulty in walking, not elsewhere classified; Z89.511 Acquired absence of right leg below knee; N39.0 Urinary tract infection, site not specified; M06.9 Rheumatoid arthritis, unspecified; Z79.52 Long term (current) use of systemic steroids; Z88.1 Allergy status to other antibiotic agents; Z91.040 Latex allergy status; Z85.6 Personal history of leukemia; G82.20 Paraplegia, unspecified; Z93.2 Ileostomy status; Z99.3 Dependence on wheelchair; G89.29 Other chronic pain; M54.9 Dorsalgia, unspecified | CPT/HCPCS: 11043; 11046; 97605; A6402 ==

== ENCOUNTER 2018-10-14 10:05 | Outpatient (CLI) | payer MEDICARE, OTHER | END 2018-10-14 23:59 | disposition home or self-care (01) | LOC: WOU 10:05 | PROVIDERS: ATTEND Internal Medicine Infectious Disease | DX: Z45.2 Encounter for adjustment and management of vascular access device (principal) | CPT/HCPCS: 36569; C1751 ==

== ENCOUNTER 2018-10-27 12:40 | Outpatient (CLI) | payer MEDICARE, OTHER | END 2018-10-27 23:59 | disposition home health service (06) | LOC: WOU 12:40 | PROVIDERS: ATTEND Surgery | DX: L89.324 Pressure ulcer of left buttock, stage 4 (principal); E44.0 Moderate protein-calorie malnutrition; R26.2 Difficulty in walking, not elsewhere classified; M06.9 Rheumatoid arthritis, unspecified; Z89.511 Acquired absence of right leg below knee; Z99.3 Dependence on wheelchair; N39.0 Urinary tract infection, site not specified; G89.29 Other chronic pain; M54.9 Dorsalgia, unspecified | CPT/HCPCS: 11043; 11046; 97605; A6402 ==

== ENCOUNTER 2018-11-10 12:35 | Outpatient (CLI) | payer MEDICARE, OTHER | END 2018-11-10 23:59 | disposition home health service (06) | LOC: WOU 12:35 | PROVIDERS: ATTEND Surgery | DX: L89.324 Pressure ulcer of left buttock, stage 4 (principal); E44.0 Moderate protein-calorie malnutrition; Z68.1 Body mass index [BMI] 19.9 or less, adult; Z89.511 Acquired absence of right leg below knee; M06.9 Rheumatoid arthritis, unspecified; B19.20 Unspecified viral hepatitis C without hepatic coma; Z85.6 Personal history of leukemia; N39.0 Urinary tract infection, site not specified; G89.29 Other chronic pain; M54.9 Dorsalgia, unspecified | CPT/HCPCS: 11043; 11046; 97605; A6402 ==

== ENCOUNTER 2018-11-17 12:30 | Outpatient (CLI) | payer MEDICARE, OTHER | END 2018-11-17 23:59 | disposition home health service (06) | LOC: WOU 12:30 | PROVIDERS: ATTEND Surgery | DX: L89.324 Pressure ulcer of left buttock, stage 4 (principal); E44.0 Moderate protein-calorie malnutrition; R26.2 Difficulty in walking, not elsewhere classified; Z89.511 Acquired absence of right leg below knee; M06.9 Rheumatoid arthritis, unspecified; Z79.52 Long term (current) use of systemic steroids; G82.20 Paraplegia, unspecified; N39.0 Urinary tract infection, site not specified; G89.29 Other chronic pain; M54.9 Dorsalgia, unspecified | CPT/HCPCS: 11043; 11046; A6402 ==

== ENCOUNTER 2018-11-24 11:00 | Outpatient (CLI) | payer MEDICARE, OTHER ==
[2018-11-24 14:56] LABS: APPEARANCE,URINE CLEAR (CLEAR); BILIRUBIN,URINE NEGATIVE (NEGATIVE); BLOOD, URINE TRACE-INTA Ery/uL (NEGATIVE); COLOR,URINE YELLOW (YELLOW); KETONES,URINE NEGATIVE (NEGATIVE); LEUKOCYTE ESTERASE ,URINE NEGATIVE (NEGATIVE); NITRITE, URINE NEGATIVE (NEGATIVE); PH,URINE 6.5 (5.0-8.0); PROTEIN,URINE 2+ mg/dl (NEGATIVE); UGLUCOSE NEGATIVE (NEGATIVE); UROBILINOGEN,URINE 0.2 EU/dL (0.2)
[2018-11-24 15:06] LABS: RBC,URINE 0-3 /HPF (0-2); WBC,URINE 0-2 /HPF (0-3)
[2018-11-24 15:07] LABS: BACTERIA,URINE Rare /HPF (None Seen); SQUAMOUS EPITHELIAL CELL,UR Few /HPF (None Seen)
== END 2018-11-24 23:59 | disposition home health service (06) ==
LOC: WOU 11:00
PROVIDERS: ATTEND Surgery
DX: L89.324 Pressure ulcer of left buttock, stage 4 (principal); R26.2 Difficulty in walking, not elsewhere classified; E44.0 Moderate protein-calorie malnutrition; Z89.511 Acquired absence of right leg below knee; M06.9 Rheumatoid arthritis, unspecified; B19.20 Unspecified viral hepatitis C without hepatic coma; Z85.6 Personal history of leukemia
CPT/HCPCS: 11043; 11046; 81001; 97605; A6402 ×2; 81000-TC

== ENCOUNTER 2018-12-05 12:42 | Outpatient (CLI) | payer MEDICARE, OTHER | END 2018-12-05 23:59 | disposition home health service (06) | LOC: WOU 12:42 | PROVIDERS: ATTEND Surgery | DX: L89.324 Pressure ulcer of left buttock, stage 4 (principal); E44.0 Moderate protein-calorie malnutrition; R26.2 Difficulty in walking, not elsewhere classified; N39.0 Urinary tract infection, site not specified; G89.29 Other chronic pain; B19.20 Unspecified viral hepatitis C without hepatic coma; Z79.891 Long term (current) use of opiate analgesic; Z79.52 Long term (current) use of systemic steroids; Z79.899 Other long term (current) drug therapy | CPT/HCPCS: 11043; 11046; 97605; A6402 ==

== ENCOUNTER 2018-12-12 13:30 | Outpatient (CLI) | payer MEDICARE, OTHER | END 2018-12-12 23:59 | disposition home health service (06) | LOC: WOU 13:30 | PROVIDERS: ATTEND Surgery | DX: L89.324 Pressure ulcer of left buttock, stage 4 (principal); N39.0 Urinary tract infection, site not specified; G89.29 Other chronic pain; B19.20 Unspecified viral hepatitis C without hepatic coma; R26.2 Difficulty in walking, not elsewhere classified; E44.0 Moderate protein-calorie malnutrition; G82.20 Paraplegia, unspecified; Z93.2 Ileostomy status; Z89.511 Acquired absence of right leg below knee; Z79.891 Long term (current) use of opiate analgesic; Z79.52 Long term (current) use of systemic steroids | CPT/HCPCS: 11043; 11046; A6402 ==

== ENCOUNTER 2018-12-12 14:21 | Outpatient (CLI) | payer MEDICARE, OTHER ==
[2018-12-12 14:34] VITALS: BP 134/82
== END 2018-12-12 23:59 | disposition home or self-care (01) ==
LOC: MSC 14:21
PROVIDERS: ATTEND Nurse Practitioner Acute Care
DX: M86.9 Osteomyelitis, unspecified (principal); S71.002D Unspecified open wound, left hip, subsequent encounter; X58.XXXD Exposure to other specified factors, subsequent encounter; G89.29 Other chronic pain; M54.9 Dorsalgia, unspecified; M06.9 Rheumatoid arthritis, unspecified; M62.838 Other muscle spasm; J44.9 Chronic obstructive pulmonary disease, unspecified; G82.20 Paraplegia, unspecified; N31.9 Neuromuscular dysfunction of bladder, unspecified; Z87.440 Personal history of urinary (tract) infections; Z79.891 Long term (current) use of opiate analgesic

== ENCOUNTER 2018-12-19 13:10 | Outpatient (CLI) | payer MEDICARE, OTHER | END 2018-12-19 23:59 | disposition home health service (06) | LOC: WOU 13:10 | PROVIDERS: ATTEND Surgery | DX: L89.324 Pressure ulcer of left buttock, stage 4 (principal); E44.0 Moderate protein-calorie malnutrition; G82.20 Paraplegia, unspecified; R26.2 Difficulty in walking, not elsewhere classified; G89.29 Other chronic pain; M54.9 Dorsalgia, unspecified; B19.20 Unspecified viral hepatitis C without hepatic coma; Z89.511 Acquired absence of right leg below knee; Z99.3 Dependence on wheelchair; Z79.891 Long term (current) use of opiate analgesic | CPT/HCPCS: 11044; 11047; A6402 ==

== ENCOUNTER 2018-12-26 13:12 | Outpatient (CLI) | payer MEDICARE, OTHER | END 2018-12-26 23:59 | disposition home health service (06) | LOC: WOU 13:12 | PROVIDERS: ATTEND Surgery | DX: L89.324 Pressure ulcer of left buttock, stage 4 (principal); G89.29 Other chronic pain; M54.9 Dorsalgia, unspecified; R26.2 Difficulty in walking, not elsewhere classified; E44.0 Moderate protein-calorie malnutrition; B19.20 Unspecified viral hepatitis C without hepatic coma; G82.20 Paraplegia, unspecified; Z89.511 Acquired absence of right leg below knee; Z99.3 Dependence on wheelchair; Z93.2 Ileostomy status; Z79.891 Long term (current) use of opiate analgesic; Z79.899 Other long term (current) drug therapy | CPT/HCPCS: 11043; 11046; A6402 ×2 ==

== ENCOUNTER 2019-01-02 13:15 | Outpatient (CLI) | payer MEDICARE, OTHER | END 2019-01-02 23:59 | disposition home health service (06) | LOC: WOU 13:15 | PROVIDERS: ATTEND Surgery | DX: L89.324 Pressure ulcer of left buttock, stage 4 (principal); E44.0 Moderate protein-calorie malnutrition; R26.2 Difficulty in walking, not elsewhere classified; G89.29 Other chronic pain; M54.9 Dorsalgia, unspecified; B19.20 Unspecified viral hepatitis C without hepatic coma; Z89.511 Acquired absence of right leg below knee; Z79.891 Long term (current) use of opiate analgesic; Z99.3 Dependence on wheelchair | CPT/HCPCS: 11043; 11046; A6402; 11042 ==

== ENCOUNTER 2019-01-09 13:47 | Outpatient (CLI) | payer MEDICARE, OTHER | END 2019-01-09 23:59 | disposition home health service (06) | LOC: WOU 13:47 | PROVIDERS: ATTEND Surgery | DX: L89.324 Pressure ulcer of left buttock, stage 4 (principal); E44.0 Moderate protein-calorie malnutrition; R26.2 Difficulty in walking, not elsewhere classified; B19.20 Unspecified viral hepatitis C without hepatic coma; G89.29 Other chronic pain; M54.9 Dorsalgia, unspecified; Z79.52 Long term (current) use of systemic steroids; Z89.511 Acquired absence of right leg below knee; Z99.3 Dependence on wheelchair; Z79.899 Other long term (current) drug therapy | CPT/HCPCS: 11043 ==

== ENCOUNTER 2019-01-16 14:30 | Outpatient (CLI) | payer MEDICARE, OTHER | END 2019-01-16 23:59 | disposition home health service (06) | LOC: WOU 14:30 | PROVIDERS: ATTEND Surgery | DX: L89.324 Pressure ulcer of left buttock, stage 4 (principal); G89.29 Other chronic pain; M54.9 Dorsalgia, unspecified; B19.20 Unspecified viral hepatitis C without hepatic coma; R26.2 Difficulty in walking, not elsewhere classified; E46 Unspecified protein-calorie malnutrition; Z68.1 Body mass index [BMI] 19.9 or less, adult; Z89.511 Acquired absence of right leg below knee; Z79.899 Other long term (current) drug therapy | CPT/HCPCS: 11043 ==

== ENCOUNTER 2019-01-23 12:51 | Outpatient (CLI) | payer MEDICARE, OTHER | END 2019-01-23 23:59 | disposition home health service (06) | LOC: WOU 12:51 | PROVIDERS: ATTEND Surgery | DX: L89.324 Pressure ulcer of left buttock, stage 4 (principal); G89.29 Other chronic pain; M54.9 Dorsalgia, unspecified; B19.20 Unspecified viral hepatitis C without hepatic coma; R26.2 Difficulty in walking, not elsewhere classified; E44.0 Moderate protein-calorie malnutrition; Z79.891 Long term (current) use of opiate analgesic; Z79.52 Long term (current) use of systemic steroids; Z79.899 Other long term (current) drug therapy; Z89.511 Acquired absence of right leg below knee | CPT/HCPCS: 11043; 97605-TC ==

== ENCOUNTER 2019-01-30 12:35 | Outpatient (CLI) | payer MEDICARE, OTHER ==
[2019-01-30 13:29] LABS: BASOPHILS % (AUTO) 0.3 % (0.0-2.0); EOSINOPHILS % (AUTO) 2.2 % (0.0-6.0); HEMATOCRIT 37 % (39-51); HEMOGLOBIN 11.4 g/dL (13.5-17.5); LYMPHOCYTES # (AUTO) 1.3 /CMM (0.8-4.8); LYMPHOCYTES % (AUTO) 22.5 % (20.0-44.0); MEAN CORPUSCULAR HGB CONC 31 g/dl (31.0-36.0); MEAN CORPUSCULAR VOLUME 65 fL (80-96); MONOCYTES # (AUTO) 1.1 /CMM (0.1-1.30); NEUTROPHILS # (AUTO) 3.3 /CMM (1.8-8.9); PLATELET COUNT (AUTO) 582 /CMM (150-450); RED BLOOD CELL COUNT(AUTO) 5.62 MIL/uL (4.5-6.0); WHITE BLOOD COUNT (AUTO) 5.9 K/uL (4.3-11.0)
[2019-01-30 13:51] LABS: ALBUMIN 2.2 g/dL (3.4-5.0); BILIRUBIN,TOTAL 0.3 mg/dL (0.2-1.0); CALCIUM, SERUM 8.9 mg/dL (8.5-10.1); CREATININE 1.2 mg/dL (0.6-1.3); POTASSIUM 3.8 mmol/L (3.5-5.1); PREALBUMIN 17.7 MG/DL (18.0-35.7); TOTAL PROTEIN, SERUM 7.3 g/dL (6.4-8.2)
[2019-01-30 15:10] LABS: BAND % (MANUAL) 4 % (0.0-5.0); EOSINOPHILS % (MANUAL) 1 % (0-4); LYMPHOCYTES % (MANUAL) 26 % (16-48); MONOCYTES % (MANUAL) 14 % (0-11.0); NEUTROPHILS % (MANUAL) 52 (42-76)
== END 2019-01-30 23:59 | disposition home health service (06) ==
LOC: WOU 12:35
PROVIDERS: ATTEND Surgery
DX: L89.324 Pressure ulcer of left buttock, stage 4 (principal); E44.0 Moderate protein-calorie malnutrition; B19.20 Unspecified viral hepatitis C without hepatic coma; R26.2 Difficulty in walking, not elsewhere classified; G89.29 Other chronic pain; M54.9 Dorsalgia, unspecified; Z79.891 Long term (current) use of opiate analgesic; Z79.52 Long term (current) use of systemic steroids; Z79.899 Other long term (current) drug therapy; Z89.511 Acquired absence of right leg below knee
CPT/HCPCS: 11043; 36415; 80053-TC; 84134-TC; 85025-TC; 87070-TC; 87075-TC; 87102-TC; 87186-TC; 97605-TC

== ENCOUNTER 2019-02-06 12:10 | Outpatient (CLI) | payer MEDICARE, OTHER | END 2019-02-06 23:59 | disposition home health service (06) | LOC: WOU 12:10 | PROVIDERS: ATTEND Surgery | DX: L89.324 Pressure ulcer of left buttock, stage 4 (principal); E44.0 Moderate protein-calorie malnutrition; R26.2 Difficulty in walking, not elsewhere classified; G89.29 Other chronic pain; M54.9 Dorsalgia, unspecified; B19.20 Unspecified viral hepatitis C without hepatic coma; Z68.1 Body mass index [BMI] 19.9 or less, adult; M06.9 Rheumatoid arthritis, unspecified; Z79.891 Long term (current) use of opiate analgesic; Z79.52 Long term (current) use of systemic steroids; Z79.899 Other long term (current) drug therapy; Z89.511 Acquired absence of right leg below knee | CPT/HCPCS: 11043; 11046; 97605; A6197 ×2 ==

== ENCOUNTER 2019-02-07 13:38 | Outpatient (CLI) | payer MEDICARE, OTHER | END 2019-02-07 23:59 | disposition home or self-care (01) | DX: R73.9 Hyperglycemia, unspecified (principal); C91.90 Lymphoid leukemia, unspecified not having achieved remission; M06.9 Rheumatoid arthritis, unspecified; D50.9 Iron deficiency anemia, unspecified; D47.3 Essential (hemorrhagic) thrombocythemia; D70.9 Neutropenia, unspecified; R47.02 Dysphasia; Z87.440 Personal history of urinary (tract) infections; J44.9 Chronic obstructive pulmonary disease, unspecified; G82.20 Paraplegia, unspecified ==

== ENCOUNTER 2019-02-08 14:40 | Outpatient (CLI) | payer MEDICARE, OTHER | END 2019-02-08 23:59 | disposition home or self-care (01) | LOC: WOU 14:40 | PROVIDERS: ATTEND Registered Nurse | DX: L89.324 Pressure ulcer of left buttock, stage 4 (principal); L08.9 Local infection of the skin and subcutaneous tissue, unspecified; B95.2 Enterococcus as the cause of diseases classified elsewhere; Z89.511 Acquired absence of right leg below knee; N31.9 Neuromuscular dysfunction of bladder, unspecified; G82.20 Paraplegia, unspecified; B19.20 Unspecified viral hepatitis C without hepatic coma; Z79.899 Other long term (current) drug therapy; J44.9 Chronic obstructive pulmonary disease, unspecified; M06.9 Rheumatoid arthritis, unspecified; C91.10 Chronic lymphocytic leukemia of B-cell type not having achieved remission; B95.62 Methicillin resistant Staphylococcus aureus infection as the cause of diseases classified elsewhere; Z79.52 Long term (current) use of systemic steroids; Z91.040 Latex allergy status | CPT/HCPCS: 97605; A6197; G0463 ==

== ENCOUNTER 2019-02-10 10:15 | Outpatient (CLI) | payer MEDICARE, OTHER | END 2019-02-10 23:59 | disposition home or self-care (01) | LOC: WOU 10:15 | PROVIDERS: ATTEND Nurse Practitioner Acute Care | DX: L89.324 Pressure ulcer of left buttock, stage 4 (principal); L08.89 Other specified local infections of the skin and subcutaneous tissue; B95.62 Methicillin resistant Staphylococcus aureus infection as the cause of diseases classified elsewhere; B95.2 Enterococcus as the cause of diseases classified elsewhere; G82.20 Paraplegia, unspecified | CPT/HCPCS: 36569; C1751 ==

== ENCOUNTER 2019-02-13 12:20 | Outpatient (CLI) | payer MEDICARE, OTHER | END 2019-02-13 23:59 | disposition home health service (06) | LOC: WOU 12:20 | PROVIDERS: ATTEND Surgery | DX: L89.324 Pressure ulcer of left buttock, stage 4 (principal); G89.29 Other chronic pain; M54.9 Dorsalgia, unspecified; B19.20 Unspecified viral hepatitis C without hepatic coma; R26.2 Difficulty in walking, not elsewhere classified; E44.0 Moderate protein-calorie malnutrition; Z89.511 Acquired absence of right leg below knee; G82.20 Paraplegia, unspecified; Z79.891 Long term (current) use of opiate analgesic; Z79.52 Long term (current) use of systemic steroids; Z79.899 Other long term (current) drug therapy | CPT/HCPCS: 11043; 97605-TC ==

== ENCOUNTER 2019-02-27 12:15 | Outpatient (CLI) | payer MEDICARE, OTHER | END 2019-02-27 23:59 | disposition home health service (06) | LOC: WOU 12:15 | PROVIDERS: ATTEND Surgery | DX: L89.324 Pressure ulcer of left buttock, stage 4 (principal); G89.29 Other chronic pain; M54.9 Dorsalgia, unspecified; B19.20 Unspecified viral hepatitis C without hepatic coma; R26.2 Difficulty in walking, not elsewhere classified; E44.0 Moderate protein-calorie malnutrition; Z68.1 Body mass index [BMI] 19.9 or less, adult; Z89.511 Acquired absence of right leg below knee; G82.20 Paraplegia, unspecified; Z93.2 Ileostomy status; Z79.891 Long term (current) use of opiate analgesic | CPT/HCPCS: 11043; 97605-TC ==

== ENCOUNTER 2019-03-06 14:30 | Outpatient (CLI) | payer MEDICARE, OTHER | END 2019-03-06 23:59 | disposition home health service (06) | LOC: WOU 14:30 | PROVIDERS: ATTEND Surgery | DX: L89.324 Pressure ulcer of left buttock, stage 4 (principal); G89.29 Other chronic pain; M54.9 Dorsalgia, unspecified; B19.20 Unspecified viral hepatitis C without hepatic coma; R26.2 Difficulty in walking, not elsewhere classified; D70.8 Other neutropenia; E44.0 Moderate protein-calorie malnutrition; Z68.1 Body mass index [BMI] 19.9 or less, adult; G82.20 Paraplegia, unspecified; Z89.511 Acquired absence of right leg below knee; Z93.2 Ileostomy status; Z79.891 Long term (current) use of opiate analgesic; Z79.899 Other long term (current) drug therapy | CPT/HCPCS: C5271; Q4117 ==

== ENCOUNTER 2019-03-13 12:12 | Outpatient (CLI) | payer MEDICARE, OTHER | END 2019-03-13 23:59 | disposition home health service (06) | LOC: WOU 12:12 | PROVIDERS: ATTEND Surgery | DX: L89.324 Pressure ulcer of left buttock, stage 4 (principal); G89.29 Other chronic pain; M54.9 Dorsalgia, unspecified; B19.20 Unspecified viral hepatitis C without hepatic coma; R26.2 Difficulty in walking, not elsewhere classified; E44.0 Moderate protein-calorie malnutrition; Z68.1 Body mass index [BMI] 19.9 or less, adult; C95.90 Leukemia, unspecified not having achieved remission; D70.8 Other neutropenia; G82.20 Paraplegia, unspecified; Z89.511 Acquired absence of right leg below knee; Z93.2 Ileostomy status; Z79.891 Long term (current) use of opiate analgesic; Z79.899 Other long term (current) drug therapy | CPT/HCPCS: C5271; Q4117; 11043; 97605-TC ==

== ENCOUNTER 2019-03-27 12:32 | Outpatient (CLI) | payer MEDICARE, OTHER | END 2019-03-27 23:59 | disposition home health service (06) | LOC: WOU 12:32 | PROVIDERS: ATTEND Surgery | DX: L89.324 Pressure ulcer of left buttock, stage 4 (principal); G89.29 Other chronic pain; M54.9 Dorsalgia, unspecified; B19.20 Unspecified viral hepatitis C without hepatic coma; R26.2 Difficulty in walking, not elsewhere classified; D70.8 Other neutropenia; Z68.1 Body mass index [BMI] 19.9 or less, adult; E44.0 Moderate protein-calorie malnutrition; C95.90 Leukemia, unspecified not having achieved remission; G82.20 Paraplegia, unspecified; Z89.511 Acquired absence of right leg below knee; Z93.2 Ileostomy status; Z79.891 Long term (current) use of opiate analgesic; Z79.899 Other long term (current) drug therapy | CPT/HCPCS: 11043; 97605-TC ==

== ENCOUNTER 2019-04-03 12:12 | Outpatient (CLI) | payer MEDICARE, OTHER | END 2019-04-03 23:59 | disposition home health service (06) | LOC: WOU 12:12 | PROVIDERS: ATTEND Surgery | DX: L89.324 Pressure ulcer of left buttock, stage 4 (principal); G89.29 Other chronic pain; M54.9 Dorsalgia, unspecified; B19.20 Unspecified viral hepatitis C without hepatic coma; R26.2 Difficulty in walking, not elsewhere classified; D70.8 Other neutropenia; E44.0 Moderate protein-calorie malnutrition; Z68.1 Body mass index [BMI] 19.9 or less, adult; G82.20 Paraplegia, unspecified; Z89.511 Acquired absence of right leg below knee; Z93.2 Ileostomy status; Z79.891 Long term (current) use of opiate analgesic; Z79.899 Other long term (current) drug therapy | CPT/HCPCS: 11043; 97605-TC ==

== ENCOUNTER 2019-04-10 12:15 | Outpatient (CLI) | payer MEDICARE, OTHER | END 2019-04-10 23:59 | disposition home health service (06) | LOC: WOU 12:15 | PROVIDERS: ATTEND Surgery | DX: L89.324 Pressure ulcer of left buttock, stage 4 (principal); G89.29 Other chronic pain; M54.9 Dorsalgia, unspecified; B19.20 Unspecified viral hepatitis C without hepatic coma; R26.2 Difficulty in walking, not elsewhere classified; D70.8 Other neutropenia; E44.0 Moderate protein-calorie malnutrition; Z68.1 Body mass index [BMI] 19.9 or less, adult; G82.20 Paraplegia, unspecified; Z89.511 Acquired absence of right leg below knee; Z73.2 Lack of relaxation and leisure; Z79.891 Long term (current) use of opiate analgesic; Z79.899 Other long term (current) drug therapy | CPT/HCPCS: 11043; 97605-TC ==

== ENCOUNTER 2019-04-17 12:25 | Outpatient (CLI) | payer MEDICARE, OTHER | END 2019-04-17 23:59 | disposition home health service (06) | LOC: WOU 12:25 | PROVIDERS: ATTEND Surgery | DX: L89.324 Pressure ulcer of left buttock, stage 4 (principal); G89.29 Other chronic pain; M54.9 Dorsalgia, unspecified; M06.9 Rheumatoid arthritis, unspecified; D70.8 Other neutropenia; B19.20 Unspecified viral hepatitis C without hepatic coma; R26.2 Difficulty in walking, not elsewhere classified; E44.0 Moderate protein-calorie malnutrition; Z68.1 Body mass index [BMI] 19.9 or less, adult; G82.20 Paraplegia, unspecified; Z89.511 Acquired absence of right leg below knee; Z99.3 Dependence on wheelchair; Z79.899 Other long term (current) drug therapy | CPT/HCPCS: 11043; 87070; 87077; 97605; A6197 ==

== ENCOUNTER 2019-04-24 12:15 | Outpatient (CLI) | payer MEDICARE, OTHER | END 2019-04-24 23:59 | disposition home health service (06) | LOC: WOU 12:15 | PROVIDERS: ATTEND Surgery | DX: L89.324 Pressure ulcer of left buttock, stage 4 (principal); G89.29 Other chronic pain; M54.9 Dorsalgia, unspecified; M06.9 Rheumatoid arthritis, unspecified; D70.8 Other neutropenia; B19.20 Unspecified viral hepatitis C without hepatic coma; R26.2 Difficulty in walking, not elsewhere classified; E44.0 Moderate protein-calorie malnutrition; Z68.1 Body mass index [BMI] 19.9 or less, adult; G82.20 Paraplegia, unspecified; Z79.899 Other long term (current) drug therapy; Z89.511 Acquired absence of right leg below knee; Z99.3 Dependence on wheelchair | CPT/HCPCS: 11043; A6197 ==

== ENCOUNTER 2019-04-24 13:29 | Outpatient (CLI) | payer MEDICARE, OTHER ==
[2019-04-24 14:12] VITALS: BP 104/72
== END 2019-04-24 23:59 | disposition home or self-care (01) ==
LOC: MSC 13:29
PROVIDERS: ATTEND Internal Medicine
DX: B37.0 Candidal stomatitis (principal); E11.40 Type 2 diabetes mellitus with diabetic neuropathy, unspecified; Z79.84 Long term (current) use of oral hypoglycemic drugs; N39.0 Urinary tract infection, site not specified; C91.Z0 Other lymphoid leukemia not having achieved remission; D70.9 Neutropenia, unspecified; M06.9 Rheumatoid arthritis, unspecified; D64.9 Anemia, unspecified; R47.02 Dysphasia; K31.84 Gastroparesis; G82.20 Paraplegia, unspecified; Z89.511 Acquired absence of right leg below knee; E43 Unspecified severe protein-calorie malnutrition; E88.09 Other disorders of plasma-protein metabolism, not elsewhere classified; J44.9 Chronic obstructive pulmonary disease, unspecified; Z99.81 Dependence on supplemental oxygen; N31.9 Neuromuscular dysfunction of bladder, unspecified

== ENCOUNTER 2019-05-01 09:10 | Outpatient (CLI) | payer MEDICARE, OTHER | END 2019-05-01 23:59 | disposition home health service (06) | LOC: WOU 09:10 | PROVIDERS: ATTEND Surgery | DX: L89.324 Pressure ulcer of left buttock, stage 4 (principal); M06.9 Rheumatoid arthritis, unspecified; G89.29 Other chronic pain; M54.9 Dorsalgia, unspecified; D70.8 Other neutropenia; B19.20 Unspecified viral hepatitis C without hepatic coma; E44.0 Moderate protein-calorie malnutrition; Z68.1 Body mass index [BMI] 19.9 or less, adult; G82.20 Paraplegia, unspecified; R26.2 Difficulty in walking, not elsewhere classified; Z89.511 Acquired absence of right leg below knee; Z99.3 Dependence on wheelchair; Z79.899 Other long term (current) drug therapy | CPT/HCPCS: 11043; 11046; 87070; 97605; A6197 ==

== ENCOUNTER 2019-05-02 09:50 | Outpatient (CLI) | payer MEDICARE, OTHER ==
[2019-05-02 11:27] LABS: BASOPHILS % (AUTO) 0.4 % (0.0-2.0); EOSINOPHILS % (AUTO) 1.7 % (0.0-6.0); HEMATOCRIT 32 % (39-51); HEMOGLOBIN 9.7 g/dL (13.5-17.5); LYMPHOCYTES # (AUTO) 0.8 /CMM (0.8-4.8); LYMPHOCYTES % (AUTO) 20.1 % (20.0-44.0); MEAN CORPUSCULAR HGB CONC 30 g/dl (31.0-36.0); MEAN CORPUSCULAR VOLUME 67 fL (80-96); MONOCYTES # (AUTO) 0.5 /CMM (0.1-1.30); MONOCYTES % (AUTO) 13.9 % (2.0-12.0); NEUTROPHILS # (AUTO) 2.5 /CMM (1.8-8.9); NEUTROPHILS % (AUTO) 63.9 % (43.0-81.0); PLATELET COUNT (AUTO) 548 /CMM (150-450); PREALBUMIN 19.4 MG/DL (18.0-35.7); RED BLOOD CELL COUNT(AUTO) 4.85 MIL/uL (4.5-6.0); WHITE BLOOD COUNT (AUTO) 3.9 K/uL (4.3-11.0)
[2019-05-02 11:28] LABS: ALBUMIN 2.3 g/dL (3.4-5.0); BILIRUBIN,TOTAL 0.1 mg/dL (0.2-1.0); CALCIUM, SERUM 8.6 mg/dL (8.5-10.1); CREATININE 0.9 mg/dL (0.6-1.3); POTASSIUM 4.2 mmol/L (3.5-5.1); TOTAL PROTEIN, SERUM 6.5 g/dL (6.4-8.2)
[2019-05-02 12:10] LABS: LYMPHOCYTES % (MANUAL) 20 % (16-48); MONOCYTES % (MANUAL) 14 % (0-11.0); NEUTROPHILS % (MANUAL) 66 (42-76)
== END 2019-05-02 23:59 | disposition home or self-care (01) ==
LOC: WOU 09:50
PROVIDERS: ATTEND Surgery
DX: Z45.2 Encounter for adjustment and management of vascular access device (principal); E11.69 Type 2 diabetes mellitus with other specified complication; M86.8X8 Other osteomyelitis, other site; L89.324 Pressure ulcer of left buttock, stage 4
CPT/HCPCS: 36415; 36569; 80053; 83036; 84134; 85025; 85730; C1751

== ENCOUNTER 2019-05-08 10:30 | Outpatient (CLI) | payer MEDICARE, OTHER | END 2019-05-08 23:59 | disposition home health service (06) | LOC: WOU 10:30 | PROVIDERS: ATTEND Surgery | DX: L89.324 Pressure ulcer of left buttock, stage 4 (principal); G89.29 Other chronic pain; M54.9 Dorsalgia, unspecified; T82.898D Other specified complication of vascular prosthetic devices, implants and grafts, subsequent encounter; B19.20 Unspecified viral hepatitis C without hepatic coma; R26.2 Difficulty in walking, not elsewhere classified; D70.8 Other neutropenia; E44.0 Moderate protein-calorie malnutrition; Z68.1 Body mass index [BMI] 19.9 or less, adult; G82.20 Paraplegia, unspecified; Z89.511 Acquired absence of right leg below knee; Z79.891 Long term (current) use of opiate analgesic; Z79.899 Other long term (current) drug therapy | CPT/HCPCS: 11043; 71045-TC; 97605-TC ==

== ENCOUNTER 2019-05-09 09:40 | Outpatient (CLI) | payer MEDICARE, OTHER ==
[2019-05-09] MEDS ORDERED: ALTEPLASE CATHFLO 2 MG/VIAL IV ONE (11:00)
--- NOTE | 2019-05-09 12:00 | NUR ---
Malfunctioning PICC Patient presents with malfunctioning PICC. Recent chest xray shows proper position. Unable to flush or aspirate at all three ports. Initial intervention was to administer Cathflo in order unclog the catheter. After allowing Cathflo to suspend in the catheter for 30 minutes, the catheter remained unusable and continued not to allow aspiration or flushing. It was then determined that a kink in the catheter must be present in the upper arm in a location not visible in the recent chest xray. In the process of repairing the kink, a new PICC kit was used. The patient was prepped in normal sterile fashion and supplies from the PICC kit was used to straighten the kink in the patient's PICC. Three new valved IV connecters were placed along with a dressing. After the repair, all three lumens were flushable and allowed aspiration with blood return. All three ports were tested in different arm positions and remained in proper working condition. Report given to RN.
== END 2019-05-09 23:59 | disposition home or self-care (01) ==
LOC: WOU 09:40
PROVIDERS: ATTEND Surgery
DX: T82.594A Other mechanical complication of infusion catheter, initial encounter (principal)
CPT/HCPCS: 36575; C1751; J2997

== ENCOUNTER 2019-05-10 16:38 | Emergency (ER) | payer MEDICARE, OTHER ==
[~2019-05-10] VITALS: Ht 170.2 cm; Wt 65.8 kg
--- NOTE | 2019-05-10 16:59 | NUR ---
CALLED HOUSE SUP FOR PICC LINE INSERTION. NURSE WILL BE AVAILABLE BY 1800
--- NOTE | 2019-05-10 17:39 | NUR ---
SILVERIO IBANEZ AT BEDSIDE FOR PICCLIINE INSTERTION. CONSENT OBTAINED
--- NOTE | 2019-05-10 17:49 | NUR ---
PICC LINE INSERTION IN PROGRESS
--- NOTE | 2019-05-10 18:15 | NUR ---
called transport trip number [id number] eta is 90 min per flex
--- NOTE | 2019-05-10 19:36 | NUR ---
Patient discharged to home in stable condition. Written and verbal after care instructions given. Patient verbalizes understanding of instruction.
[2019-05-10 19:37] VITALS: BP 128/72
== END 2019-05-10 19:38 | disposition home or self-care (01) ==
LOC: ER 16:45
DX: T82.898A Other specified complication of vascular prosthetic devices, implants and grafts, initial encounter (principal); M06.9 Rheumatoid arthritis, unspecified; D64.9 Anemia, unspecified; J44.9 Chronic obstructive pulmonary disease, unspecified; Z89.511 Acquired absence of right leg below knee; Z93.3 Colostomy status; Z85.6 Personal history of leukemia; Z91.040 Latex allergy status; Z88.8 Allergy status to other drugs, medicaments and biological substances; Z79.899 Other long term (current) drug therapy
CPT/HCPCS: 36569; 99285; C1751

== ENCOUNTER 2019-05-15 09:48 | Outpatient (CLI) | payer MEDICARE, OTHER | END 2019-05-15 23:59 | disposition home health service (06) | LOC: WOU 09:48 | PROVIDERS: ATTEND Surgery | DX: L89.324 Pressure ulcer of left buttock, stage 4 (principal); T82.898D Other specified complication of vascular prosthetic devices, implants and grafts, subsequent encounter; G89.29 Other chronic pain; M54.9 Dorsalgia, unspecified; D70.8 Other neutropenia; B19.20 Unspecified viral hepatitis C without hepatic coma; E44.0 Moderate protein-calorie malnutrition; Z68.1 Body mass index [BMI] 19.9 or less, adult; G82.20 Paraplegia, unspecified; R26.2 Difficulty in walking, not elsewhere classified; M06.9 Rheumatoid arthritis, unspecified; Z89.511 Acquired absence of right leg below knee; Z99.3 Dependence on wheelchair; Z79.899 Other long term (current) drug therapy | CPT/HCPCS: 11043; 97605-TC ==

== ENCOUNTER 2019-05-22 09:55 | Outpatient (CLI) | payer MEDICARE, OTHER | END 2019-05-22 23:59 | disposition home health service (06) | LOC: WOU 09:55 | PROVIDERS: ATTEND Surgery | DX: L89.324 Pressure ulcer of left buttock, stage 4 (principal); G89.29 Other chronic pain; M54.9 Dorsalgia, unspecified; D70.8 Other neutropenia; B19.20 Unspecified viral hepatitis C without hepatic coma; E44.0 Moderate protein-calorie malnutrition; Z68.1 Body mass index [BMI] 19.9 or less, adult; G82.20 Paraplegia, unspecified; R26.2 Difficulty in walking, not elsewhere classified; Z89.511 Acquired absence of right leg below knee; M06.9 Rheumatoid arthritis, unspecified; Z99.3 Dependence on wheelchair; Z79.899 Other long term (current) drug therapy | CPT/HCPCS: 11043; 97605-TC ==

== ENCOUNTER 2019-05-29 10:30 | Outpatient (CLI) | payer MEDICARE, OTHER | END 2019-05-29 23:59 | disposition home health service (06) | LOC: WOU 10:30 | PROVIDERS: ATTEND Surgery | DX: L89.324 Pressure ulcer of left buttock, stage 4 (principal); G89.29 Other chronic pain; M54.9 Dorsalgia, unspecified; B19.20 Unspecified viral hepatitis C without hepatic coma; E44.0 Moderate protein-calorie malnutrition; Z68.1 Body mass index [BMI] 19.9 or less, adult; G82.20 Paraplegia, unspecified; D70.9 Neutropenia, unspecified; R26.2 Difficulty in walking, not elsewhere classified; Z89.511 Acquired absence of right leg below knee; M06.9 Rheumatoid arthritis, unspecified; Z99.3 Dependence on wheelchair; Z79.899 Other long term (current) drug therapy | CPT/HCPCS: 11044; 97605-TC; A6197 ==

== ENCOUNTER 2019-06-05 09:40 | Outpatient (CLI) | payer MEDICARE, OTHER | END 2019-06-05 23:59 | disposition home health service (06) | LOC: WOU 09:40 | PROVIDERS: ATTEND Surgery | DX: L89.324 Pressure ulcer of left buttock, stage 4 (principal); G89.29 Other chronic pain; M54.9 Dorsalgia, unspecified; B19.20 Unspecified viral hepatitis C without hepatic coma; R26.2 Difficulty in walking, not elsewhere classified; G82.20 Paraplegia, unspecified; D70.9 Neutropenia, unspecified; E46 Unspecified protein-calorie malnutrition; Z68.1 Body mass index [BMI] 19.9 or less, adult; Z79.52 Long term (current) use of systemic steroids; Z79.899 Other long term (current) drug therapy; Z99.3 Dependence on wheelchair; Z89.511 Acquired absence of right leg below knee; Z93.2 Ileostomy status | CPT/HCPCS: 11043; 97605-TC ==

== ENCOUNTER 2019-06-12 09:35 | Outpatient (CLI) | payer MEDICARE, OTHER | END 2019-06-12 23:59 | disposition home health service (06) | LOC: WOU 09:35 | PROVIDERS: ATTEND Surgery | DX: L89.324 Pressure ulcer of left buttock, stage 4 (principal); G89.29 Other chronic pain; M54.9 Dorsalgia, unspecified; B19.20 Unspecified viral hepatitis C without hepatic coma; R26.2 Difficulty in walking, not elsewhere classified; G82.20 Paraplegia, unspecified; D70.9 Neutropenia, unspecified; E44.0 Moderate protein-calorie malnutrition; Z68.1 Body mass index [BMI] 19.9 or less, adult; Z79.52 Long term (current) use of systemic steroids; Z79.899 Other long term (current) drug therapy; Z99.3 Dependence on wheelchair; Z89.511 Acquired absence of right leg below knee; Z93.2 Ileostomy status | CPT/HCPCS: 11043; 97605; A6197 ==

== ENCOUNTER 2019-06-19 09:35 | Outpatient (CLI) | payer MEDICARE, OTHER | END 2019-06-19 23:59 | disposition home health service (06) | LOC: WOU 09:35 | PROVIDERS: ATTEND Surgery | DX: L89.324 Pressure ulcer of left buttock, stage 4 (principal); E44.0 Moderate protein-calorie malnutrition; Z68.1 Body mass index [BMI] 19.9 or less, adult; G89.29 Other chronic pain; M54.9 Dorsalgia, unspecified; B19.20 Unspecified viral hepatitis C without hepatic coma; R26.2 Difficulty in walking, not elsewhere classified; G82.20 Paraplegia, unspecified; D70.9 Neutropenia, unspecified; Z79.52 Long term (current) use of systemic steroids; Z79.899 Other long term (current) drug therapy; Z99.3 Dependence on wheelchair; Z89.511 Acquired absence of right leg below knee; Z93.2 Ileostomy status | CPT/HCPCS: 11043; 97605; A6197 ==

== ENCOUNTER 2019-06-26 10:00 | Outpatient (CLI) | payer MEDICARE, OTHER | END 2019-06-26 23:59 | disposition home health service (06) | LOC: WOU 10:00 | PROVIDERS: ATTEND Surgery | DX: L89.324 Pressure ulcer of left buttock, stage 4 (principal); E44.0 Moderate protein-calorie malnutrition; Z68.1 Body mass index [BMI] 19.9 or less, adult; G89.29 Other chronic pain; M54.9 Dorsalgia, unspecified; B19.20 Unspecified viral hepatitis C without hepatic coma; G82.20 Paraplegia, unspecified; D70.9 Neutropenia, unspecified; Z89.511 Acquired absence of right leg below knee; Z93.2 Ileostomy status; Z79.899 Other long term (current) drug therapy; Z79.52 Long term (current) use of systemic steroids | CPT/HCPCS: 11043; 87070-TC; 87075-TC; 87102-TC; 87186-TC; 97605-TC ==

== ENCOUNTER 2019-07-03 09:45 | Outpatient (CLI) | payer MEDICARE, OTHER ==
[2019-11-25] MEDS ORDERED: CEFT2VIA14 IV (10:21)
== END 2019-07-03 23:59 | disposition home health service (06) ==
LOC: WOU 09:45
PROVIDERS: ATTEND Surgery
DX: L89.324 Pressure ulcer of left buttock, stage 4 (principal); E44.0 Moderate protein-calorie malnutrition; Z68.1 Body mass index [BMI] 19.9 or less, adult; G89.29 Other chronic pain; M54.9 Dorsalgia, unspecified; B19.20 Unspecified viral hepatitis C without hepatic coma; G82.20 Paraplegia, unspecified; D70.9 Neutropenia, unspecified; R26.2 Difficulty in walking, not elsewhere classified; Z89.511 Acquired absence of right leg below knee; Z93.2 Ileostomy status; Z79.52 Long term (current) use of systemic steroids; Z79.899 Other long term (current) drug therapy
CPT/HCPCS: 11043; 11044

== ENCOUNTER 2019-07-03 10:34 | Outpatient (CLI) | payer MEDICARE, OTHER ==
[2019-11-25] MEDS ORDERED: CEFT2VIA14 IV (10:21)
== END 2019-07-03 23:59 | disposition home or self-care (01) ==
LOC: CT 10:34
PROVIDERS: ATTEND Surgery
DX: N20.0 Calculus of kidney (principal)
CPT/HCPCS: 72192-TC

== ENCOUNTER 2019-07-06 14:20 | Outpatient (CLI) | payer MEDICARE, OTHER | END 2019-07-06 23:59 | disposition home or self-care (01) | LOC: WOU 14:20 | PROVIDERS: ATTEND Registered Nurse | DX: Z45.2 Encounter for adjustment and management of vascular access device (principal); M86.9 Osteomyelitis, unspecified; L89.324 Pressure ulcer of left buttock, stage 4; Z79.2 Long term (current) use of antibiotics | CPT/HCPCS: 36569; C1751; J7030 ==

== ENCOUNTER 2019-07-10 09:20 | Outpatient (CLI) | payer MEDICARE, OTHER | END 2019-07-10 23:59 | disposition home health service (06) | LOC: WOU 09:20 | PROVIDERS: ATTEND Surgery | DX: L89.324 Pressure ulcer of left buttock, stage 4 (principal); M86.9 Osteomyelitis, unspecified; E44.0 Moderate protein-calorie malnutrition; Z68.1 Body mass index [BMI] 19.9 or less, adult; G89.29 Other chronic pain; M54.9 Dorsalgia, unspecified; B19.20 Unspecified viral hepatitis C without hepatic coma; G82.20 Paraplegia, unspecified; D70.9 Neutropenia, unspecified; R26.2 Difficulty in walking, not elsewhere classified; Z89.511 Acquired absence of right leg below knee; Z93.2 Ileostomy status; Z79.52 Long term (current) use of systemic steroids; Z79.899 Other long term (current) drug therapy | CPT/HCPCS: 11043; 97605-TC ==

== ENCOUNTER 2019-07-17 09:05 | Outpatient (CLI) | payer MEDICARE, OTHER ==
[2019-11-25] MEDS ORDERED: CEFT2VIA14 IV (10:21)
== END 2019-07-17 23:59 | disposition home health service (06) ==
LOC: WOU 09:05
PROVIDERS: ATTEND Surgery
DX: L89.324 Pressure ulcer of left buttock, stage 4 (principal); M86.9 Osteomyelitis, unspecified; E44.0 Moderate protein-calorie malnutrition; Z68.1 Body mass index [BMI] 19.9 or less, adult; G89.29 Other chronic pain; M54.9 Dorsalgia, unspecified; B19.20 Unspecified viral hepatitis C without hepatic coma; D70.9 Neutropenia, unspecified; R26.2 Difficulty in walking, not elsewhere classified; Z89.511 Acquired absence of right leg below knee; Z93.2 Ileostomy status; Z79.52 Long term (current) use of systemic steroids; Z79.899 Other long term (current) drug therapy
CPT/HCPCS: 11043; 97605-TC

== ENCOUNTER 2019-08-07 08:30 | Outpatient (CLI) | payer MEDICARE, OTHER | END 2019-08-07 23:59 | disposition home health service (06) | LOC: WOU 08:30 | PROVIDERS: ATTEND Surgery | DX: L89.324 Pressure ulcer of left buttock, stage 4 (principal); I89.0 Lymphedema, not elsewhere classified; I87.2 Venous insufficiency (chronic) (peripheral); G89.29 Other chronic pain; M54.9 Dorsalgia, unspecified; D70.9 Neutropenia, unspecified; R26.2 Difficulty in walking, not elsewhere classified; E44.0 Moderate protein-calorie malnutrition; Z68.1 Body mass index [BMI] 19.9 or less, adult; E11.9 Type 2 diabetes mellitus without complications; Z79.899 Other long term (current) drug therapy; G82.20 Paraplegia, unspecified; Z93.2 Ileostomy status; Z89.511 Acquired absence of right leg below knee | CPT/HCPCS: 11043; 97605-TC ==

== ENCOUNTER 2019-08-14 09:00 | Outpatient (CLI) | payer MEDICARE, OTHER ==
[2019-11-25] MEDS ORDERED: CEFT2VIA14 IV (10:21)
== END 2019-08-14 23:59 | disposition home health service (06) ==
LOC: WOU 09:00
PROVIDERS: ATTEND Surgery
DX: L89.324 Pressure ulcer of left buttock, stage 4 (principal); G89.29 Other chronic pain; M54.9 Dorsalgia, unspecified; I89.0 Lymphedema, not elsewhere classified; I87.2 Venous insufficiency (chronic) (peripheral); R26.2 Difficulty in walking, not elsewhere classified; D70.9 Neutropenia, unspecified; E46 Unspecified protein-calorie malnutrition; Z68.23 Body mass index [BMI] 23.0-23.9, adult; G82.20 Paraplegia, unspecified; Z99.3 Dependence on wheelchair; Z89.511 Acquired absence of right leg below knee; Z93.2 Ileostomy status; Z79.899 Other long term (current) drug therapy
CPT/HCPCS: 11043; 97605-TC

== ENCOUNTER 2019-08-21 09:05 | Outpatient (CLI) | payer MEDICARE, OTHER ==
[2019-11-25] MEDS ORDERED: CEFT2VIA14 IV (10:21)
== END 2019-08-21 23:59 | disposition home health service (06) ==
LOC: WOU 09:05
PROVIDERS: ATTEND Surgery
DX: L89.324 Pressure ulcer of left buttock, stage 4 (principal); G89.29 Other chronic pain; M54.9 Dorsalgia, unspecified; I87.2 Venous insufficiency (chronic) (peripheral); I89.0 Lymphedema, not elsewhere classified; R26.2 Difficulty in walking, not elsewhere classified; D70.9 Neutropenia, unspecified; E46 Unspecified protein-calorie malnutrition; Z68.23 Body mass index [BMI] 23.0-23.9, adult; G82.20 Paraplegia, unspecified; Z99.3 Dependence on wheelchair; Z89.511 Acquired absence of right leg below knee; Z93.2 Ileostomy status; Z79.899 Other long term (current) drug therapy
CPT/HCPCS: 11043; 97605-TC

== ENCOUNTER 2019-08-28 09:05 | Outpatient (CLI) | payer MEDICARE, OTHER | END 2019-08-28 23:59 | disposition home health service (06) | LOC: WOU 09:05 | PROVIDERS: ATTEND Surgery | DX: L89.324 Pressure ulcer of left buttock, stage 4 (principal); G89.29 Other chronic pain; M54.9 Dorsalgia, unspecified; R26.2 Difficulty in walking, not elsewhere classified; D70.9 Neutropenia, unspecified; I89.0 Lymphedema, not elsewhere classified; E44.0 Moderate protein-calorie malnutrition; Z68.23 Body mass index [BMI] 23.0-23.9, adult; I87.2 Venous insufficiency (chronic) (peripheral); G82.20 Paraplegia, unspecified; Z89.511 Acquired absence of right leg below knee; Z93.2 Ileostomy status; Z79.899 Other long term (current) drug therapy | CPT/HCPCS: 11043; 97605-TC ==

== ENCOUNTER 2019-09-01 14:10 | Outpatient (CLI) | payer MEDICARE, OTHER | END 2019-09-01 23:59 | disposition home or self-care (01) | LOC: MSC 14:10 | PROVIDERS: ATTEND Internal Medicine | DX: E11.40 Type 2 diabetes mellitus with diabetic neuropathy, unspecified (principal); E11.43 Type 2 diabetes mellitus with diabetic autonomic (poly)neuropathy; K31.84 Gastroparesis; Z79.84 Long term (current) use of oral hypoglycemic drugs; N39.0 Urinary tract infection, site not specified; C91.Z0 Other lymphoid leukemia not having achieved remission; Z86.2 Personal history of diseases of the blood and blood-forming organs and certain disorders involving the immune mechanism; M06.9 Rheumatoid arthritis, unspecified; D47.3 Essential (hemorrhagic) thrombocythemia; D50.9 Iron deficiency anemia, unspecified; R47.02 Dysphasia; K31.9 Disease of stomach and duodenum, unspecified; G82.20 Paraplegia, unspecified; Z89.511 Acquired absence of right leg below knee; E43 Unspecified severe protein-calorie malnutrition; E88.09 Other disorders of plasma-protein metabolism, not elsewhere classified; M62.50 Muscle wasting and atrophy, not elsewhere classified, unspecified site; J44.9 Chronic obstructive pulmonary disease, unspecified; Z99.81 Dependence on supplemental oxygen; R00.0 Tachycardia, unspecified; Z79.52 Long term (current) use of systemic steroids; Z79.899 Other long term (current) drug therapy ==

== ENCOUNTER 2019-09-01 15:04 | Outpatient (CLI) | payer MEDICARE, OTHER ==
[2019-11-25] MEDS ORDERED: CEFT2VIA14 IV (10:21)
== END 2019-09-01 23:59 | disposition home or self-care (01) ==
LOC: RAD 15:04
PROVIDERS: ATTEND Surgery
DX: Z01.818 Encounter for other preprocedural examination (principal); L89.324 Pressure ulcer of left buttock, stage 4; M85.851 Other specified disorders of bone density and structure, right thigh; J43.8 Other emphysema; J98.4 Other disorders of lung; M43.26 Fusion of spine, lumbar region; Z93.3 Colostomy status; Z98.890 Other specified postprocedural states
CPT/HCPCS: 71045-TC; 73502

== ENCOUNTER 2019-11-20 09:00 | Outpatient (CLI) | payer MEDICARE, OTHER ==
[2019-11-20 10:12] LABS: CALCIUM, SERUM 9.9 mg/dL (8.5-10.1); CREATININE 1.9 mg/dL (0.6-1.3); POTASSIUM 3.6 mmol/L (3.5-5.1)
[2019-11-20 10:16] LABS: PREALBUMIN 16.2 MG/DL (18.0-35.7)
[2019-11-20 10:25] LABS: BASOPHILS % (AUTO) 0.4 % (0.0-2.0); EOSINOPHILS % (AUTO) 0.2 % (0.0-6.0); HEMATOCRIT 39 % (39-51); LYMPHOCYTES # (AUTO) 1.4 /CMM (0.8-4.8); LYMPHOCYTES % (AUTO) 14.7 % (20.0-44.0); MEAN CORPUSCULAR HGB CONC 30 g/dl (31.0-36.0); MEAN CORPUSCULAR VOLUME 68 fL (80-96); MONOCYTES # (AUTO) 0.6 /CMM (0.1-1.30); MONOCYTES % (AUTO) 6.4 % (2.0-12.0); NEUTROPHILS # (AUTO) 7.3 /CMM (1.8-8.9); NEUTROPHILS % (AUTO) 78.3 % (43.0-81.0); PLATELET COUNT (AUTO) 560 /CMM (150-450); RED BLOOD CELL COUNT(AUTO) 5.79 MIL/uL (4.5-6.0); WHITE BLOOD COUNT (AUTO) 9.3 K/uL (4.3-11.0)
[2019-11-20 12:14] LABS: BAND % (MANUAL) 12 % (0.0-5.0); BLASTS, MANUAL % 1 % (0-0); LYMPHOCYTES % (MANUAL) 8 % (16-48); METAMYELOCYTES % 3 % (0-0); MONOCYTES % (MANUAL) 8 % (0-11.0); MYELOCYTES % 2 % (0-0); NEUTROPHILS % (MANUAL) 65 (42-76); PROMYELOCYTES % 1 % (0-0)
[2019-11-20 12:30] LABS: APPEARANCE,URINE CLOUDY (CLEAR); BILIRUBIN,URINE NEGATIVE (NEGATIVE); BLOOD, URINE MODERATE Ery/uL (NEGATIVE); COLOR,URINE YELLOW (YELLOW); KETONES,URINE NEGATIVE (NEGATIVE); LEUKOCYTE ESTERASE ,URINE MODERATE (NEGATIVE); NITRITE, URINE NEGATIVE (NEGATIVE); PH,URINE 6.5 (5.0-8.0); PROTEIN,URINE 100 mg/dl (NEGATIVE); UGLUCOSE NEGATIVE (NEGATIVE); UROBILINOGEN,URINE 0.2 EU/dL (0.2)
[2019-11-20 13:02] LABS: BACTERIA,URINE 1+ /HPF (None Seen); MUCUS,URINE Moderate /LPF (None Seen); URINE AMORPHOUS URATE Moderate /HPF (None Seen)
== END 2019-11-20 23:59 | disposition home health service (06) ==
LOC: WOU 09:00
PROVIDERS: ATTEND Surgery
DX: L89.324 Pressure ulcer of left buttock, stage 4 (principal); I87.2 Venous insufficiency (chronic) (peripheral); I89.0 Lymphedema, not elsewhere classified; E11.9 Type 2 diabetes mellitus without complications; E44.0 Moderate protein-calorie malnutrition; Z68.23 Body mass index [BMI] 23.0-23.9, adult; G82.20 Paraplegia, unspecified; Z93.2 Ileostomy status; Z89.511 Acquired absence of right leg below knee
CPT/HCPCS: 11043; 11046; 36415; 80048; 81001; 82962; 83036; 84134; 85025; 87070; 87086; 97605; J3490; 81000-TC; 87186-TC

== ENCOUNTER 2019-11-21 11:04 | Outpatient (CLI) | payer MEDICARE, OTHER ==
[2019-11-25] MEDS ORDERED: CEFT2VIA14 IV (10:21)
== END 2019-11-21 23:59 | disposition home or self-care (01) ==
LOC: WOU 11:04
PROVIDERS: ATTEND Nurse Practitioner Acute Care
DX: Z45.2 Encounter for adjustment and management of vascular access device (principal); M86.9 Osteomyelitis, unspecified
CPT/HCPCS: 36569; C1751

== ENCOUNTER 2019-11-21 11:53 | Outpatient (CLI) | payer MEDICARE, OTHER | END 2019-11-21 23:59 | disposition home or self-care (01) | LOC: MSC 11:53 | PROVIDERS: ATTEND Internal Medicine | DX: S71.002D Unspecified open wound, left hip, subsequent encounter (principal); L03.116 Cellulitis of left lower limb; X58.XXXD Exposure to other specified factors, subsequent encounter; E11.40 Type 2 diabetes mellitus with diabetic neuropathy, unspecified; E11.43 Type 2 diabetes mellitus with diabetic autonomic (poly)neuropathy; K31.84 Gastroparesis; Z79.4 Long term (current) use of insulin; G82.20 Paraplegia, unspecified; E43 Unspecified severe protein-calorie malnutrition; E27.40 Unspecified adrenocortical insufficiency; Z86.2 Personal history of diseases of the blood and blood-forming organs and certain disorders involving the immune mechanism; M06.9 Rheumatoid arthritis, unspecified; Z79.52 Long term (current) use of systemic steroids; Z87.440 Personal history of urinary (tract) infections; D64.9 Anemia, unspecified; E88.09 Other disorders of plasma-protein metabolism, not elsewhere classified; N31.9 Neuromuscular dysfunction of bladder, unspecified ==

== ENCOUNTER 2019-11-21 12:28 | Inpatient (IN) | payer MEDICARE, OTHER ==
[2019-11-21] VITALS (17 sets, daily range): BP systolic 69–131; BP diastolic 46–86
[~2019-11-21] VITALS: Ht 167.6 cm; Wt 80.7 kg
--- NOTE | 2019-11-21 12:28 | NUR ---
PT BIB RN FROM WOUND CLINIC C/O SENT BY DR REGALADO FOR L BUTTOCK PRESSURE SORE POS SEPSIS, PT IS AAOX4, NOT IN RESPIRATORY DISTRESS, HOOKED TO DELIVERY DRIVER ASSISTANT, KEPT RESTED AND COMFORTABLE, WILL CONTINUE TO MONITOR.
--- NOTE | 2019-11-21 12:30 | NUR ---
BLOOD DRAWN AND SENT TO LAB.
--- NOTE | 2019-11-21 12:35 | NUR ---
SEEN AND EXAMINED BY .
[2019-11-21] MEDS ORDERED: HYDROCORTISONE SOD SUCCINATE 100 MG/2 ML VIAL ONE (12:44)
[2019-11-21 12:53] LABS: BASOPHILS # (AUTO) 0.1 /CMM (0.0-0.2); HEMOGLOBIN 11.3 g/dL (13.5-17.5); MEAN CORPUSCULAR VOLUME 69 fL (80-96)
[2019-11-21 12:58] LABS: BASOPHILS % (AUTO) 0.5 % (0.0-2.0); EOSINOPHILS % (AUTO) 0.2 % (0.0-6.0); HEMATOCRIT 38 % (39-51); LYMPHOCYTES # (AUTO) 2.7 /CMM (0.8-4.8); LYMPHOCYTES % (AUTO) 18.9 % (20.0-44.0); MEAN CORPUSCULAR HGB CONC 30 g/dl (31.0-36.0); MONOCYTES # (AUTO) 0.9 /CMM (0.1-1.30); MONOCYTES % (AUTO) 6.1 % (2.0-12.0); NEUTROPHILS # (AUTO) 10.6 /CMM (1.8-8.9); NEUTROPHILS % (AUTO) 74.3 % (43.0-81.0); PLATELET COUNT (AUTO) 435 /CMM (150-450); RED BLOOD CELL COUNT(AUTO) 5.48 MIL/uL (4.5-6.0); WHITE BLOOD COUNT (AUTO) 14.3 K/uL (4.3-11.0)
[2019-11-21] MEDS ORDERED: VANCOMYCIN 1 GM in IV D5W 250 ML IV ONE (13:00)
[2019-11-21] MEDS ORDERED: HYDROCORTISONE SOD SUCCINATE 100 MG/2 ML VIAL IV ONE (13:00)
[2019-11-21] MEDS ORDERED: PIPERACILLIN /TAZOBACTAM 3.375 G in IV D5W 50 ML IV ONE (13:00)
[2019-11-21] MEDS ORDERED: IV NS 0.9% 1,000 ML BAG IV ONE (13:00)
[2019-11-21 13:01] LABS: CALCIUM, SERUM 10.1 mg/dL (8.5-10.1); CARBON DIOXIDE 26 mmol/L (21-32); CHLORIDE 91 mmol/L (98-107); CREATININE 2.5 mg/dL (0.6-1.3); GLUCOSE 121 mg/dL (74-106); POTASSIUM 4.2 mmol/L (3.5-5.1); SODIUM SERUM 128 mmol/L (136-145); UREA NITROGEN, BLOOD 36 mg/dL (7-18)
--- NOTE | 2019-11-21 13:05 | NUR ---
ELECTRICAL DESIGNER DRAFTER AT BEDSIDE FOR XRAY.
[2019-11-21 13:14] LABS: ALANINE AMINOTRANSFERASE 30 U/L (12-78); ALBUMIN 2.4 g/dL (3.4-5.0); ALKALINE PHOSPHATASE 148 U/L (46-116); ASPARTATE AMINOTRANSFERASE 21 U/L (15-37); B-TYPE NATRIURETIC PEPTIDE 2589 PG/ML (0-125); BILIRUBIN,DIRECT 0.1 mg/dL (0.0-0.2); BILIRUBIN,TOTAL 0.3 mg/dL (0.2-1.0)
[2019-11-21] MEDS ORDERED: HYDROCODONE/APAP 5/325MG 1 EACH TABLET PO PRN (13:30)
[2019-11-21] MEDS ORDERED: PHENYLEPHRINE 50 MG in IV NS 0.9% 250 ML IV PRN (13:30)
[2019-11-21] MEDS ORDERED: ACETAMINOPHEN 325 MG TABLET PO PRN (13:30)
[2019-11-21] MEDS ORDERED: ONDANSETRON HCL/PF 4 MG/2 ML VIAL IVP PRN (13:30)
[2019-11-21] MEDS ORDERED: MAG HYDROX/AL HYDROX/SIMETH 30 ML UDC PO PRN (13:30)
[2019-11-21] MEDS ORDERED: IV NS 0.9% 1,000 ML IV SCH (13:30)
[2019-11-21] MEDS ORDERED: DEXTROSE 50%-WATER 50 ML DISP.SYRIN IV PRN (13:30)
[2019-11-21] MEDS ORDERED: MAGNESIUM HYDROXIDE 30 ML UDC PO PRN (13:30)
[2019-11-21] MEDS ORDERED: Z GUARD REMEDY 2 OZ OINT TP PRN (13:30)
--- NOTE | 2019-11-21 13:45 | NUR ---
called for icu bed
--- NOTE | 2019-11-21 13:53 | NUR ---
GOT BED 259
--- NOTE | 2019-11-21 13:55 | NUR ---
CHANGE BED TO 254
--- NOTE | 2019-11-21 13:56 | NUR ---
COVID SWAB DONE
[2019-11-21] MEDS ORDERED: NOREPINEPHRINE 8 MG in IV NS 0.9% 250 ML IV ONE (14:00)
--- NOTE | 2019-11-21 14:06 | NUR ---
REPORT GIVEN TO SUKI PERALES FOR AZRA
[2019-11-21] MEDS ORDERED: FEE PK DOSING 1 MIN EA MC ONE (14:25)
[2019-11-21] MEDS: ENOXAPARIN SODIUM 30 MG/0.3 ML DISP.SYRIN SQ SCH (15:20)
--- NOTE | 2019-11-21 17:00 | NUR ---
RN NOTE RECEIVED PATIENT FROM ER. PATIENT IS A/O X4, ON ROOM AIR SATURATING WELL, NO RESPIRATORY DISTRESS NOTED. O2 SATURATION AT 96% ON ROOM AIR. PLACED ON TELE MONITOR, SINUS RHYTHM NOTED. HR IN THE 80S. PER MD ORDER, PLACED A RICHEY CATHETER INTO THE PATIENT. YELLOW CLOUDY URINE DRAINAGE NOTED. SAMPLE COLLECTED AND SENT TO LAB. PATIENT HAS MULTIPLE WOUND PRESENT, REFUSED SKIN ASSESSMENT. PATIENT CAME FROM WOUND CLINIC AND CLAIMS TO JUST HAVE THE WOUND CARE DONE. DOES NOT WANT NURSES TO TOUCH THE WOUND. REQUESTED WOUND CARE CONSULT. PATIENT OK WITH WOUND NURSE. PATIENT HAS A PICC LINE ON RIGHT UPPER ARM, INTACT AND FLUSHED WELL. STARTED ON IV FLUIDS PER MD ORDER. PATIENT SAFETY IS MAINTAINED, CALL LIGHT WITHIN REACH, WILL CONTINUE TO MONITOR.
[2019-11-21] MEDS: BLOOD SUGAR DIAGNOSTIC 1 EACH STRIP VI SCH ×2 (17:06→22:14)
[2019-11-21] MEDS: HYDROCORTISONE SOD SUCCINATE 100 MG/2 ML VIAL IV SCH (17:06)
[2019-11-21] MEDS: IPRATROPIUM/ALBUTEROL INHALER IH SCH (18:00)
[2019-11-21 18:27] LABS: APPEARANCE,URINE CLOUDY (CLEAR); BILIRUBIN,URINE NEGATIVE (NEGATIVE); BLOOD, URINE MODERATE Ery/uL (NEGATIVE); COLOR,URINE YELLOW (YELLOW); KETONES,URINE NEGATIVE (NEGATIVE); LEUKOCYTE ESTERASE ,URINE LARGE (NEGATIVE); NITRITE, URINE POSITIVE (NEGATIVE); PROTEIN,URINE 30 mg/dl (NEGATIVE); UGLUCOSE NEGATIVE (NEGATIVE); UROBILINOGEN,URINE 0.2 EU/dL (0.2)
[2019-11-21 18:42] LABS: BACTERIA,URINE Moderate /HPF (None Seen); SQUAMOUS EPITHELIAL CELL,UR Few /HPF (None Seen); WBC,URINE 51-80 /HPF (0-3)
[2019-11-21] MEDS ORDERED: MEROPENEM 500 MG in IV NS 0.9% 50 ML IV ONE (19:00)
--- NOTE | 2019-11-21 19:42 | NUR ---
RN CLOSING NOTES ENDORSED PATIENT TO PM NURSE FOR CONTINUITY OF CARE. ALL PATIENT NEEDS MET. PER CHARGE NURSE, OK TO FORREST CUMMINGS. PATIENT VITAL SIGNS HAVE BEEN STABLE. NO ACUTE CHANGES TO PATIENT CONDITION DURING MY SHIFT. 1900 DOSE OF MERREM NOT AVAILABLE, CALLED PHARMACY AND REQUESTED A BAG. WILL BRING IT UP CHEYANNE. ENDORSED TO PM NURSE TO HANG IT. ALL PATIENT NEEDS WERE MET, CALL LIGHT WITHIN REACH, ENDORSED TO PM NURSE FOR CONTINUITY OF CARE.
--- NOTE | 2019-11-21 20:02 | NUR ---
PETAL SHAPER HAND NOTES RECEIVED PT IN BED. AOX4, ABLE TO MAKE NEEDS KNOWN. ON RA W/O2 SAT 96%, NO SOB NOTED. ON IT PORTFOLIO MANAGER. INCONTINENT OF BOWEL AND URINE WITH ILEOSTOMY AND F/C IN PLACE, DRAINING WELL. PT IS BEDBOUND. L BUTTOCK WOUND COVERED W/DRESSING AND WOUND VAC ATTACHED AND RUNNING. RFA DOUBLE LUMEN PICC LINE IN PLACE, FLUSHES WELL W/IVF RUNNING ORDERED. ALL SAFETY MEASURES IN PLACE. WILL CONT TO MONITOR
[2019-11-22] VITALS (26 sets, daily range): BP systolic 69–125; BP diastolic 36–90
[2019-11-22] MEDS: IPRATROPIUM/ALBUTEROL INHALER IH SCH ×4 (00:36→18:00)
[2019-11-22] MEDS: IV NS 0.9% 1,000 ML IV PRN ×2 (02:11→19:45)
[2019-11-22] MEDS: MEROPENEM 500 MG in IV NS 0.9% 100 ML IV SCH ×2 (03:10→16:05)
[2019-11-22 04:53] LABS: BASOPHILS % (AUTO) 0.3 % (0.0-2.0); HEMATOCRIT 28 % (39-51); HEMOGLOBIN 8.3 g/dL (13.5-17.5); LYMPHOCYTES # (AUTO) 2.4 /CMM (0.8-4.8); LYMPHOCYTES % (AUTO) 21.8 % (20.0-44.0); MEAN CORPUSCULAR HGB CONC 30 g/dl (31.0-36.0); MEAN CORPUSCULAR VOLUME 70 fL (80-96); MONOCYTES # (AUTO) 0.6 /CMM (0.1-1.30); MONOCYTES % (AUTO) 5.4 % (2.0-12.0); NEUTROPHILS # (AUTO) 7.9 /CMM (1.8-8.9); NEUTROPHILS % (AUTO) 72.5 % (43.0-81.0); PLATELET COUNT (AUTO) 389 /CMM (150-450); RED BLOOD CELL COUNT(AUTO) 3.97 MIL/uL (4.5-6.0); WHITE BLOOD COUNT (AUTO) 10.9 K/uL (4.3-11.0)
[2019-11-22 05:07] LABS: CALCIUM, SERUM 8.4 mg/dL (8.5-10.1); CREATININE 1.5 mg/dL (0.6-1.3); MAGNESIUM 1.9 mg/dL (1.8-2.4); PHOSPHORUS 3.6 mg/dL (2.5-4.9); POTASSIUM 4.4 mmol/L (3.5-5.1)
--- NOTE | 2019-11-22 06:50 | NUR ---
ACCOUNTING POLICY CONSULTANT NOTES PT IN BED RELAXED W/GOOD SPIRITS. NAD, NO SOB AT THIS TIME. ENDORSED TO THE ONCOMING RN
[2019-11-22 07:24] LABS: FERRITIN 120 ng/mL (8-388)
[2019-11-22 07:33] LABS: IRON, SERUM 8 ug/dl (50-175); TOTAL IRON BINDING CAPACITY 174 ug/dl (250-450)
[2019-11-22] MEDS: HYDROCORTISONE SOD SUCCINATE 100 MG/2 ML VIAL IV SCH ×3 (08:00→18:47)
[2019-11-22] MEDS: ENOXAPARIN SODIUM 30 MG/0.3 ML DISP.SYRIN SQ SCH (08:01)
--- NOTE | 2019-11-22 08:10 | NUR ---
WOUND CARE CONSULT: PT PRESENTS WITH LEFT BUTTOCK WOUND WITH [facility]CI WOUND VAC FROM WOUND CLINIC, PRESENT ON ADMISSION. 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 PT REFUSED TO TURN FROM RT SIDE AT THIS TIME. RECOMMEND SURGICAL CONSULT. DR THIBODEAUX NOTIFIED OF PT ADMISSION. RECOMMENDATIONS MADE FOR SKIN PROTECTION. DISCUSSED WITH NURSING STAFF. IN AGREEMENT WITH PLAN OF CARE.
[2019-11-22] MEDS: BLOOD SUGAR DIAGNOSTIC 1 EACH STRIP VI SCH ×4 (08:37→22:01)
[2019-11-22] MEDS: PANTOPRAZOLE 40 MG TABLET.DR PO SCH (08:54)
[2019-11-22] MEDS: GABAPENTIN 100 MG CAPSULE PO SCH ×3 (08:54→18:47)
--- NOTE | 2019-11-22 09:12 | NUR ---
WOUND CARE: PT HAD PORTABLE KCI VAC ON LEFT BUTTOCK WOUND BUT BATTERY LOW AND THEREFORE HOSPITAL KCI VAC UNIT WAS PLACED AND VAC WAS FUNCTIONING AT 125mmHg CONTINUOUS SETTING. PT'S CANISTER WAS DISCARDED AT 3/4 FULL WITH DARK RED DRAINAGE. RECEIVED ORDER FROM DR THIBODEAUX TO DC VAC FOR NOW AND USE DAKINS FOR TOPICAL WOUND CARE. DISCUSSED WITH NURSING STAFF.
[2019-11-22] MEDS: DAKINS QUARTER STRENGTH (0.125%) 480 ML BOTTLE TOP SCH ×3 (09:48→22:03)
--- NOTE | 2019-11-22 10:23 | NUR ---
WOUND CARE CONSULT: KCI VAC DCD BY SURGEON. 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 WOUND IRRIGATED WITH DAKINS, GENTLY PACKED WITH DAKINS MOISTENED KERLIX AND COVERED WITH ABD PAD, SECURED WITH PAPER TAPE. PT TOLERATED WELL. PT TO BE FOLLOWED BY PLASTIC SURGERY TEAM. WILL SEE PRN. PT IS ABLE TO ASSIST WITH TURNING AND REPOSITIONING IN BED. MD IN AGREEMENT WITH PLAN OF CARE. Addendum: 11/22/19 at 1026 by ALINA ELLIOTT WNDNU Amended: Links added.
[2019-11-22] MEDS ORDERED: VANCOMYCIN 1 GM in IV D5W 250 ML IV SCH ×3 (13:00→20:00)
[2019-11-22] MEDS: ACETAMINOPHEN W/ CODEINE#3 1 EA TABLET PO PRN (15:39)
--- NOTE | 2019-11-22 19:30 | NUR ---
END OF SHIFT NOTE: PT HAD AN UNEVENTFUL SHIFT. COVID 19 TEST CAME BACK NEGATIVE, PT TAKEN OUT OF ISOLATION. PER WOUND CARE ORDERS, WOUND VAC REMOVED, WOUND PACKED WITH DAKINS SOAKED GAUZE, COVERED IN ABD AND PAPER TAPE PER MD ORDERS. WOUND CARE TO BE DONE TID SPREAD OUT Q8H. PT HAD DEPENDENT BP WHEN PATIENT ON RIGHT SIDE AND BP CUFF IN ON LEFT ARM BP IS LOW, WHEN PATIENTS POSITION IS SUPINE OR TO THE LEFT BP WNL. PT CHECKED ON HOURLY AND PRN BY NURSING STAFF.
--- NOTE | 2019-11-22 19:40 | NUR ---
ICU/DRAWING PRESS OPERATOR REPORT RECEIVED FROM THE TO DAY NURSE. SEE FLOWSHEET FOR ASSESSMENT, SKIN ISSUES ARE ADDRESSED ON FLOWSHEET ALONG WITH INTERVENTION TO EACH. PT AWAKE, ALERT X4. PT IS ON ROOM AIR WITH TOLERATED WELL WITH SATURATION AT 99-100%. WILL MONITOR THIS PT AND HIS SATURATION. PT WAS TURNED AND REPOSITIONED FOR COMFORT AND CARE. NO ACUTE DISTRESS SEEN AT THIS TIME.
--- NOTE | 2019-11-22 22:15 | NUR ---
ICU/ASSISTANT PROFESSOR OF BUSINESS DRESSING CHANGE WAS DONE, PT TOLERATED THIS WELL. PT REFUSED ANY PAIN MEDICATION. WILL CONTINUE TO MONITOR THIS PT.
[2019-11-23] VITALS (32 sets, daily range): BP systolic 87–154; BP diastolic 46–113
[2019-11-23] MEDS: VANCOMYCIN 1 GM in IV D5W 250 ML IV SCH ×2 (00:15→12:00)
--- NOTE | 2019-11-23 00:25 | NUR ---
ICU/MOLDING AND TRIM INSTALLER PT REFUSED MIDNIGHT DOSE OF INHALER. SAID HE HASN'T TAKEN HIS INHALER FOR YEARS.
[2019-11-23] MEDS ORDERED: VANCOMYCIN 1 GM in IV D5W 250 ML IV SCH ×5 (00:30→01:00)
[2019-11-23] MEDS: MEROPENEM 500 MG in IV NS 0.9% 100 ML IV SCH ×2 (02:31→15:37)
[2019-11-23 04:05] LABS: BASOPHILS % (AUTO) 0.2 % (0.0-2.0); EOSINOPHILS % (AUTO) 0.1 % (0.0-6.0); HEMATOCRIT 28 % (39-51); HEMOGLOBIN 8.5 g/dL (13.5-17.5); LYMPHOCYTES # (AUTO) 2.6 /CMM (0.8-4.8); LYMPHOCYTES % (AUTO) 22.9 % (20.0-44.0); MEAN CORPUSCULAR HGB CONC 30 g/dl (31.0-36.0); MEAN CORPUSCULAR VOLUME 69 fL (80-96); MONOCYTES # (AUTO) 0.7 /CMM (0.1-1.30); MONOCYTES % (AUTO) 6.5 % (2.0-12.0); NEUTROPHILS # (AUTO) 7.9 /CMM (1.8-8.9); NEUTROPHILS % (AUTO) 70.3 % (43.0-81.0); PLATELET COUNT (AUTO) 427 /CMM (150-450); WHITE BLOOD COUNT (AUTO) 11.2 K/uL (4.3-11.0)
[2019-11-23] MEDS: IPRATROPIUM/ALBUTEROL INHALER IH SCH ×4 (04:16→12:26)
[2019-11-23 04:19] LABS: CALCIUM, SERUM 8.3 mg/dL (8.5-10.1); CREATININE 1.4 mg/dL (0.6-1.3); PHOSPHORUS 1.9 mg/dL (2.5-4.9); POTASSIUM 3.5 mmol/L (3.5-5.1)
--- NOTE | 2019-11-23 04:30 | NUR ---
ICU/FOUNTAIN JERK WENT IN TO ASK ABOUT 0600 DRESSING, HOWEVER PT WAS ASLEEP. WILL ASK WHEN PT IS AWAKE.
--- NOTE | 2019-11-23 05:35 | NUR ---
ICU/BARN BOSS WENT IN TO ASK ABOUT 0600 DRESSING, HOWEVER PT WAS ASLEEP. WILL DO DRESSING WHEN PT IS AWAKE.
[2019-11-23] MEDS: DAKINS QUARTER STRENGTH (0.125%) 480 ML BOTTLE TOP SCH ×4 (06:00→22:21)
--- NOTE | 2019-11-23 06:09 | NUR ---
ICU/FINAL ASSEMBLY AND PACKING SUPERVISOR WENT IN TO SEE IF PT IS AWAKE FOR DRESSING CHANGE, HOWEVER PT IS SLEEP. UNABLE TO DO 0600 DRESSING CHANGE MADE CHARGE NURSE AWARE UNABLE TO DO SECOND 8 HOUR DRESSING CHANGE.
[2019-11-23] MEDS: BLOOD SUGAR DIAGNOSTIC 1 EACH STRIP VI SCH ×4 (08:37→22:29)
[2019-11-23] MEDS ORDERED: SILVER NITRATE APPLICATOR 1 EA BOX TP ONE (09:00)
[2019-11-23] MEDS: HYDROCORTISONE SOD SUCCINATE 100 MG/2 ML VIAL IV SCH (09:14)
[2019-11-23] MEDS: GABAPENTIN 100 MG CAPSULE PO SCH ×3 (09:14→17:26)
[2019-11-23] MEDS: PANTOPRAZOLE 40 MG TABLET.DR PO SCH (09:14)
[2019-11-23] MEDS: ENOXAPARIN SODIUM 30 MG/0.3 ML DISP.SYRIN SQ SCH (09:15)
[2019-11-23] MEDS: IV NS 0.9% 1,000 ML IV PRN ×2 (12:12→23:28)
--- NOTE | 2019-11-23 12:24 | NUR ---
HOLD TODAYS VANCO DOSE PER PHARMACY D/T VANCO TROUGH OF 25.
[2019-11-23] MEDS ORDERED: ALTEPLASE CATHFLO 2 MG/VIAL XX ONE (12:30)
[2019-11-23] MEDS ORDERED: K PHOS NEUTRAL 250 MG TABLET PO ONE (13:00)
[2019-11-23] MEDS: VANCOMYCIN 0.75 GM in IV D5W 250 ML IV SCH (13:47)
[2019-11-23] MEDS ORDERED: HYDROCORTISONE SOD SUCCINATE 100 MG/2 ML VIAL IV SCH (17:00)
[2019-11-23] MEDS: GLUCERNA SHAKE 237 ML CAN PO SCH (17:26)
[2019-11-23] MEDS: INSULIN REGULAR, HUMAN 100 UNIT/ML 3 ML VIAL SQ PRN (17:27)
--- NOTE | 2019-11-23 19:30 | NUR ---
END OF SHIFT NOTE: PT HAD AN UNEVENTFUL SHIFT. DRESSING CHANGES DONE PER MD ORDERS. DEBRIDEMENT SCHEDULED FOR TOMORROW MORNING AROUND 10AM, CONSENT ON CHART. PT ENCOURAGED TO DRINK MORE WATER TODAY. PT CHECKED ON HOURLY AND PRN BY NURSING STAFF.
[2019-11-23] MEDS: CEFTRIAXONE 2 G in IV D5W 100 ML IV SCH (19:58)
[2019-11-23] MEDS: ACETAMINOPHEN W/ CODEINE#3 1 EA TABLET PO PRN (19:59)
--- NOTE | 2019-11-23 20:00 | NUR ---
journeyman operator assistant notes Received pts in bed awake alert and responsive able to make needs known. on r/a sating 97- 99% no sob no distress noted all needs attended too ,call light within reach all due meds given as ordered ,on ivf of ns at 100cc/hr infusing well .with picc line on right upper arm intact and patent , v/s stable afebrile with ileostomy intact and patent with output [id number] at this time. turned and reposition pts is on full liquid diet as tolerated .will continue to monitor pts.
[2019-11-23] MEDS ORDERED: LIDOCAINE 1%-EPI 1:100,000 50 ML VIAL IJ ONE (21:00)
[2019-11-23] MEDS: *INSULIN REGULAR(HUMULIN R)HUM 100 UNIT/ML VIAL SQ PRN (22:28)
--- NOTE | 2019-11-23 22:30 | NUR ---
STAFF NURSE MIDWIFE NOTES BLOOD SUGAR FOR 10PM IS 109 MG/DL NO INSULIN COVERAGE GIVEN PER SLIDING SCALE WILL CHECK BLOOD SUGAR AGAIN IN AM .
[2019-11-24] VITALS (19 sets, daily range): BP systolic 110–157; BP diastolic 62–118
--- NOTE | 2019-11-24 | NUR ---
nicu rn notes combivent inhaler dose for 12mn not administered to pts due to refusal md made aware , explain r/b pts is is a/o x4 able to make decision ,respect pts right .will continue to monitor pts.
[2019-11-24] MEDS ORDERED: VANCOMYCIN 0.75 GM in IV D5W 250 ML IV SCH (01:00)
[2019-11-24 04:11] LABS: CALCIUM, SERUM 7.8 mg/dL (8.5-10.1); CREATININE 1.3 mg/dL (0.6-1.3); PHOSPHORUS 1.6 mg/dL (2.5-4.9); POTASSIUM 3.4 mmol/L (3.5-5.1)
[2019-11-24] MEDS: IPRATROPIUM/ALBUTEROL INHALER IH SCH ×4 (06:00→18:00)
--- NOTE | 2019-11-24 06:00 | NUR ---
cardiothoracic icu rn notes combivent inhaler dose for 6am not administered pts refused meds..pts remain in bed a/ox4 r/a sating 96% at this time no complain of pain . stable v/s the whole shift, pts for debridement of left buttocks consented for procedure .all needs anticipated , will endorse to rn day shift for continuity of care.
[2019-11-24] MEDS: GLUCERNA SHAKE 237 ML CAN PO SCH ×2 (08:00→11:35)
[2019-11-24] MEDS: BLOOD SUGAR DIAGNOSTIC 1 EACH STRIP VI SCH ×4 (08:51→21:31)
[2019-11-24] MEDS ORDERED: NEUTRA PHOS 1 POWD.PACKET PO SCH (09:00)
[2019-11-24] MEDS ORDERED: POTASSIUM CHLORIDE 20 MEQ TAB.PRT.SR PO SCH (10:00)
[2019-11-24] MEDS: DAKINS QUARTER STRENGTH (0.125%) 480 ML BOTTLE TOP SCH ×4 (10:00→21:43)
[2019-11-24] MEDS: GABAPENTIN 100 MG CAPSULE PO SCH ×3 (10:26→19:02)
[2019-11-24] MEDS: K PHOS NEUTRAL 250 MG TABLET PO SCH ×3 (10:26→19:02)
[2019-11-24] MEDS: PANTOPRAZOLE 40 MG TABLET.DR PO SCH (10:26)
[2019-11-24] MEDS: predniSONE 5 MG TABLET PO SCH ×2 (10:27→19:02)
[2019-11-24] MEDS: ENOXAPARIN SODIUM 30 MG/0.3 ML DISP.SYRIN SQ SCH (10:29)
[2019-11-24] MEDS: ACETAMINOPHEN W/ CODEINE#3 1 EA TABLET PO PRN ×2 (10:43→17:12)
--- NOTE | 2019-11-24 11:17 | NUR ---
BEDSIDE DEBRIDEMENT DONE BY TAMANNA BLACKBURN. WOUND MEASUREMENTS 5X3X6.1. PER TAMANNA CONTINUE TID DAKINS DRESSING CHANGES AT CURRENT SCHEDULE 1000, 1500, 2200. PATIENT GIVEN PAIN MEDICATION PRIOR TO DEBRIDEMENT.
--- NOTE | 2019-11-24 12:24 | NUR ---
PT STATES HE CAN NOT DRINK GLUCERNA D/T GASTRIC BLOATING.
--- NOTE | 2019-11-24 14:30 | NUR ---
RN GAVE REPORT TO CARY COHN FOR TRANSFER TO ROOM 202. PT TRANSFERRED TO ROOM 202 AT 1430, ALL BELONGINGS LISTED ON BELONGINGS SHEET SENT WITH PATIENT INCLUDING BACKPACK WITH HOME WOUND VAC INSIDE, PT'S GLASSES, CELL PHONE, WALLET, PERSONAL BELONGINGS BAG, ALL MEDICATIONS, WOUND CARE SUPPLIES INCLUDING LIDOCAINE AND SILVER NITRATE STICKS PER TAMANNA BLACKBURN TO KEEP WITH PATIENT IN CASE SHE NEEDS TO USE IT AGAIN FOR DEBRIDEMENT. PT ALERT OX4 UNDERSTANDS MOVE TO MED/SURG. RN SETTLED PATIENT IN ROOM 202 AND GAVE UPDATES TO KATHY COHN AND CARY COHN.
--- NOTE | 2019-11-24 14:59 | NUR ---
ICU PT TRANSFERRED TO [facility] AFTER REPORT RECEIVED FROM CYNTHIA COHN. ALL PATIENT MEDICATIONS AND PERSONAL BELONGINGS TRANSFERRED WITH PATIENT TO RECEIVING FLOOR. WILL CONTINUE PLAN OF CARE.
--- NOTE | 2019-11-24 19:20 | NUR ---
CHANGE OF SHIFT REPORT PT RESTING COMFORTABLY IN BED. NO S/S OR C/O PAIN OR DISTRESS NOTED. SIDE RAILS UP X2, CALL LIGHT LEFT WITHIN REACH. PT KEPT CLEAN, DRY, AND COMFORTABLE. NO SIGNIFICANT CHANGES SINCE PREVIOUS SHIFT. REPORT GIVEN TO ARTEM MAIER RN.
--- NOTE | 2019-11-24 19:31 | NUR ---
MS RN NOTES PATIENT IN BED, AWAKE, ALERT AND ORIENTED X 4. BREATHING EVEN AND UNLABORED ON ROOM AIR. SHOWS NO SIGNS OF ACUTE RESPIRATORY DISTRESS. NO ACUTE PAIN. R ILEOSTOMY CLEAN DRY AND INTACT. F/C INTACT FLOWING URINE. COOPER PICC LINE IS INTACT. SHOWS NO SIGNS OF INFILTRATION, NO REDNESS. SAFETY PRECAUTIONS IN PLACE. BED IN LOWEST POSITION, LOCKED, AND CALL LIGHT KEPT WITHIN REACH. WILL CONTINUE TO MONITOR.
[2019-11-24] MEDS: CEFTRIAXONE 2 G in IV D5W 100 ML IV SCH (19:49)
[2019-11-24] MEDS: *INSULIN REGULAR(HUMULIN R)HUM 100 UNIT/ML VIAL SQ PRN (21:40)
[2019-11-25] MEDS: IPRATROPIUM/ALBUTEROL INHALER IH SCH ×3 (06:00→12:00)
[2019-11-25] MEDS: BLOOD SUGAR DIAGNOSTIC 1 EACH STRIP VI SCH ×3 (06:31→17:30)
[2019-11-25] MEDS: INSULIN REGULAR, HUMAN 100 UNIT/ML 3 ML VIAL SQ PRN (06:35)
--- NOTE | 2019-11-25 06:38 | NUR ---
MS RN NOTES PATIENT IN BED, AWAKE, ALERT AND ORIENTED X 4. BREATHING EVEN AND UNLABORED ON ROOM AIR. SHOWS NO SIGNS OF ACUTE RESPIRATORY DISTRESS. NO ACUTE PAIN. R ILEOSTOMY CLEAN DRY AND INTACT. F/C INTACT FLOWING CLEAR YELLOW URINE. COOPER PICC LINE IS INTACT. SHOWS NO SIGNS OF INFILTRATION, NO REDNESS. ALL DUE MEDICATIONS GIVEN. SAFETY PRECAUTIONS IN PLACE. BED IN LOWEST POSITION, LOCKED, AND CALL LIGHT KEPT WITHIN REACH. WILL ENDORSE TO ONCOMING NURSE.
[2019-11-25 06:59] LABS: ALBUMIN 2.1 g/dL (3.4-5.0); BILIRUBIN,TOTAL 0.2 mg/dL (0.2-1.0); CALCIUM, SERUM 8.2 mg/dL (8.5-10.1); CREATININE 1.1 mg/dL (0.6-1.3); MAGNESIUM 1.7 mg/dL (1.8-2.4); PHOSPHORUS 1.6 mg/dL (2.5-4.9); POTASSIUM 3.8 mmol/L (3.5-5.1); TOTAL PROTEIN, SERUM 5.5 g/dL (6.4-8.2)
[2019-11-25 07:05] LABS: BASOPHILS % (AUTO) 0.4 % (0.0-2.0); EOSINOPHILS % (AUTO) 0.5 % (0.0-6.0); HEMATOCRIT 30 % (39-51); HEMOGLOBIN 9.1 g/dL (13.5-17.5); LYMPHOCYTES % (AUTO) 30.4 % (20.0-44.0); MEAN CORPUSCULAR HGB CONC 31 g/dl (31.0-36.0); MEAN CORPUSCULAR VOLUME 70 fL (80-96); MONOCYTES # (AUTO) 0.5 /CMM (0.1-1.30); NEUTROPHILS # (AUTO) 6.3 /CMM (1.8-8.9); NEUTROPHILS % (AUTO) 63.7 % (43.0-81.0); PLATELET COUNT (AUTO) 427 /CMM (150-450); RED BLOOD CELL COUNT(AUTO) 4.22 MIL/uL (4.5-6.0); WHITE BLOOD COUNT (AUTO) 9.8 K/uL (4.3-11.0)
[2019-11-25 07:52] LABS: BAND % (MANUAL) 1 % (0.0-5.0); EOSINOPHILS % (MANUAL) 1 % (0-4); LYMPHOCYTES % (MANUAL) 11 % (16-48); MONOCYTES % (MANUAL) 12 % (0-11.0); NEUTROPHILS % (MANUAL) 75 (42-76)
[2019-11-25 08:00] VITALS: BP 138/84
--- NOTE | 2019-11-25 08:00 | NUR ---
MS RN OPENING NOTES Received Patient resting in bed. A/O x 4. VS stable with no acute distress. Breathing even and unlabored on room air with no respiratory distress. Patient stated generalized pain 9/10. Will intervene as ordered. Ileostomy in place and patent. Armendariz Cath in place and patent with clear yellow output. COOPER PICC Line clean, intact, patent and flushing well. Safety precautions in place. Bed locked and set to lowest position with side rails x 2 up. All needs rendered at this time. Call light within reach. Will continue to monitor.
[2019-11-25] MEDS: predniSONE 5 MG TABLET PO SCH ×2 (08:41→16:28)
[2019-11-25] MEDS: PANTOPRAZOLE 40 MG TABLET.DR PO SCH (08:41)
[2019-11-25] MEDS: K PHOS NEUTRAL 250 MG TABLET PO SCH (08:41)
[2019-11-25] MEDS: GABAPENTIN 100 MG CAPSULE PO SCH ×3 (08:41→16:26)
[2019-11-25] MEDS: ENOXAPARIN SODIUM 30 MG/0.3 ML DISP.SYRIN SQ SCH (08:42)
[2019-11-25] MEDS: ACETAMINOPHEN W/ CODEINE#3 1 EA TABLET PO PRN (08:50)
[2019-11-25] MEDS ORDERED: Magnesium 1GM/D5W 100ML PREMIX 100 ML IV SCH (09:30)
[2019-11-25] MEDS ORDERED: CEFT2VIA14 IV (10:21)
[2019-11-25] MEDS: DAKINS QUARTER STRENGTH (0.125%) 480 ML BOTTLE TOP SCH ×2 (10:41→14:55)
[2019-11-25] MEDS ORDERED: K PHOS NEUTRAL 250 MG TABLET PO ONE (11:30)
[2019-11-25] MEDS ORDERED: CEFTRIAXONE 2 G in IV D5W 100 ML IV ONE (15:00)
[2019-11-25 16:00] VITALS: BP 150/96
--- NOTE | 2019-11-25 16:28 | NUR ---
MS RN NOTES Patient refused Prednisone 5mg at this time. Patient stated that he takes it at bedtime. Per Patient, "I will take it when I get home". Patient in stable condition. Will continue to monitor.
--- NOTE | 2019-11-25 17:36 | NUR ---
MS RN NOTES Patient awaiting transport for discharge. Refused accucheck at this time. Patient in stable condition. Will continue to monitor.
--- NOTE | 2019-11-25 18:20 | NUR ---
MS VENEER JOINTER NOTES Patient discharged for home with home health at this time. VS stable with no acute distress. Breathing even and unlabored on room air with no respiratory distress. Patient comfortable and stated tolerable pain level. Skin assessment pictures taken and placed in chart. COOPER PICC Line in place and patent. Ileostomy in place and patent. Armendariz Cath in place and patent. Medication reconciliation and discharge orders reviewed and explained to Patient. Patient verbalized understanding. All belongings with Patient. Patient will follow up with PCP and Home Health. Patient picked up by Ambulance Transport.
== END 2019-11-25 18:48 | disposition home health service (06) | DRG 853 ==
LOC: ER 12:28 → ICU 14:01 → MEDSG2 11-24 14:35
PROVIDERS: ADMIT Internal Medicine; ATTEND Internal Medicine
PROC: 0QB30ZZ Excision of Left Pelvic Bone, Open Approach (ICD-10-PCS; principal; 2019-11-24)
DX: A41.9 Sepsis, unspecified organism (principal); L89.154 Pressure ulcer of sacral region, stage 4; E43 Unspecified severe protein-calorie malnutrition; N17.0 Acute kidney failure with tubular necrosis; R65.21 Severe sepsis with septic shock; L03.116 Cellulitis of left lower limb; E27.40 Unspecified adrenocortical insufficiency; C91.Z0 Other lymphoid leukemia not having achieved remission; G82.20 Paraplegia, unspecified; D68.59 Other primary thrombophilia; E87.1 Hypo-osmolality and hyponatremia; E87.2 Acidosis; N39.0 Urinary tract infection, site not specified; I95.9 Hypotension, unspecified; J44.9 Chronic obstructive pulmonary disease, unspecified; N31.9 Neuromuscular dysfunction of bladder, unspecified; Z87.440 Personal history of urinary (tract) infections; M06.9 Rheumatoid arthritis, unspecified; E11.43 Type 2 diabetes mellitus with diabetic autonomic (poly)neuropathy; K31.84 Gastroparesis; R13.10 Dysphagia, unspecified; R47.02 Dysphasia; Z89.511 Acquired absence of right leg below knee; E88.09 Other disorders of plasma-protein metabolism, not elsewhere classified; Z68.28 Body mass index [BMI] 28.0-28.9, adult; D47.3 Essential (hemorrhagic) thrombocythemia; D64.9 Anemia, unspecified; Z99.81 Dependence on supplemental oxygen; E86.1 Hypovolemia; Z93.3 Colostomy status; Z87.891 Personal history of nicotine dependence; Z79.52 Long term (current) use of systemic steroids; B96.1 Klebsiella pneumoniae [K. pneumoniae] as the cause of diseases classified elsewhere
CPT/HCPCS: 36415; 71045-TC; 80048-TC; 80053-TC; 80076-TC; 80202-TC; 81000-TC; 82533; 82728-TC; 82962-TC; 83540-TC; 83605-TC; 83735-TC; 83880; 84100-TC; 84484-TC; 85025-TC; 85730-TC; 87040-TC; 87081-TC; 87086-TC; A4216; A6253; A6403; G0378; J0696; J1650; J1720; J1815; J2185; J2543; J2997; J3370; J3475; J3490; J7030; J7040; J7050; J7060; J7512; U0003-CS

== ENCOUNTER 2019-11-30 14:45 | Outpatient (CLI) | payer MEDICARE, OTHER ==
[~2019-11-30 14:45] MED LIST changes: +CEFT2VIA14 IV; -PIPE3.379 IV
== END 2019-11-30 23:59 | disposition home health service (06) ==
LOC: WOU 14:45
PROVIDERS: ATTEND Surgery
DX: L89.324 Pressure ulcer of left buttock, stage 4 (principal); I87.2 Venous insufficiency (chronic) (peripheral); I89.0 Lymphedema, not elsewhere classified; R26.2 Difficulty in walking, not elsewhere classified; E44.0 Moderate protein-calorie malnutrition; Z68.23 Body mass index [BMI] 23.0-23.9, adult; G89.29 Other chronic pain; M54.9 Dorsalgia, unspecified; B19.20 Unspecified viral hepatitis C without hepatic coma; D70.9 Neutropenia, unspecified; Z79.899 Other long term (current) drug therapy
CPT/HCPCS: 11044; J3490

== ENCOUNTER 2019-12-04 10:55 | Outpatient (CLI) | payer MEDICARE, OTHER | END 2019-12-04 23:59 | disposition home health service (06) | LOC: WOU 10:55 | PROVIDERS: ATTEND Surgery | DX: L89.324 Pressure ulcer of left buttock, stage 4 (principal); I87.2 Venous insufficiency (chronic) (peripheral); I89.0 Lymphedema, not elsewhere classified; E44.0 Moderate protein-calorie malnutrition; Z68.23 Body mass index [BMI] 23.0-23.9, adult; B19.20 Unspecified viral hepatitis C without hepatic coma; G89.29 Other chronic pain; M54.9 Dorsalgia, unspecified; R26.2 Difficulty in walking, not elsewhere classified; D70.9 Neutropenia, unspecified; Z79.899 Other long term (current) drug therapy; Z89.511 Acquired absence of right leg below knee | CPT/HCPCS: 11044; A6253; J3490 ==

== ENCOUNTER 2019-12-07 13:00 | Outpatient (CLI) | payer MEDICARE, OTHER | END 2019-12-07 23:59 | disposition home health service (06) | LOC: WOU 13:00 | PROVIDERS: ATTEND Surgery | DX: L89.324 Pressure ulcer of left buttock, stage 4 (principal); I87.2 Venous insufficiency (chronic) (peripheral); I89.0 Lymphedema, not elsewhere classified; M86.9 Osteomyelitis, unspecified; R26.2 Difficulty in walking, not elsewhere classified; E44.0 Moderate protein-calorie malnutrition; Z68.23 Body mass index [BMI] 23.0-23.9, adult; G89.29 Other chronic pain; M54.9 Dorsalgia, unspecified; B19.20 Unspecified viral hepatitis C without hepatic coma; D70.9 Neutropenia, unspecified; G82.20 Paraplegia, unspecified; Z79.899 Other long term (current) drug therapy; Z89.511 Acquired absence of right leg below knee | CPT/HCPCS: 11044; A6253; 11047 ==

== ENCOUNTER 2019-12-07 14:04 | Outpatient (CLI) | payer MEDICARE, OTHER | END 2019-12-07 23:59 | disposition home or self-care (01) | LOC: MSC 14:04 | PROVIDERS: ATTEND Internal Medicine | DX: L03.116 Cellulitis of left lower limb (principal); Z87.440 Personal history of urinary (tract) infections; E11.40 Type 2 diabetes mellitus with diabetic neuropathy, unspecified; E11.43 Type 2 diabetes mellitus with diabetic autonomic (poly)neuropathy; K31.84 Gastroparesis; E27.40 Unspecified adrenocortical insufficiency; C91.90 Lymphoid leukemia, unspecified not having achieved remission; Z86.19 Personal history of other infectious and parasitic diseases; Z87.09 Personal history of other diseases of the respiratory system; Z99.81 Dependence on supplemental oxygen; Z87.448 Personal history of other diseases of urinary system; M06.9 Rheumatoid arthritis, unspecified; Z86.2 Personal history of diseases of the blood and blood-forming organs and certain disorders involving the immune mechanism; G82.20 Paraplegia, unspecified; E88.09 Other disorders of plasma-protein metabolism, not elsewhere classified; E43 Unspecified severe protein-calorie malnutrition; M62.50 Muscle wasting and atrophy, not elsewhere classified, unspecified site; Z79.52 Long term (current) use of systemic steroids; Z79.899 Other long term (current) drug therapy ==

== ENCOUNTER 2019-12-11 11:40 | Outpatient (CLI) | payer MEDICARE, OTHER ==
[2019-12-11 13:15] LABS: APPEARANCE,URINE CLOUDY (CLEAR); BILIRUBIN,URINE NEGATIVE (NEGATIVE); BLOOD, URINE LARGE Ery/uL (NEGATIVE); COLOR,URINE YELLOW (YELLOW); KETONES,URINE NEGATIVE (NEGATIVE); LEUKOCYTE ESTERASE ,URINE MODERATE (NEGATIVE); NITRITE, URINE NEGATIVE (NEGATIVE); PROTEIN,URINE 100 mg/dl (NEGATIVE); UGLUCOSE NEGATIVE (NEGATIVE); UROBILINOGEN,URINE 0.2 EU/dL (0.2)
[2019-12-11 13:24] LABS: PREALBUMIN 17.6 MG/DL (18.0-35.7)
[2019-12-11 13:28] LABS: ALBUMIN 2.4 g/dL (3.4-5.0); BILIRUBIN,TOTAL 0.2 mg/dL (0.2-1.0); CREATININE 1.4 mg/dL (0.6-1.3); POTASSIUM 4.3 mmol/L (3.5-5.1); TOTAL PROTEIN, SERUM 6.8 g/dL (6.4-8.2)
[2019-12-11 13:38] LABS: BASOPHILS % (AUTO) 0.6 % (0.0-2.0); EOSINOPHILS % (AUTO) 0.6 % (0.0-6.0); HEMATOCRIT 34 % (39-51); HEMOGLOBIN 9.9 g/dL (13.5-17.5); LYMPHOCYTES # (AUTO) 1.9 /CMM (0.8-4.8); LYMPHOCYTES % (AUTO) 26.8 % (20.0-44.0); MEAN CORPUSCULAR HGB CONC 29 g/dl (31.0-36.0); MEAN CORPUSCULAR VOLUME 70 fL (80-96); MONOCYTES # (AUTO) 1.1 /CMM (0.1-1.30); NEUTROPHILS # (AUTO) 4.1 /CMM (1.8-8.9); PLATELET COUNT (AUTO) 547 /CMM (150-450); RED BLOOD CELL COUNT(AUTO) 4.85 MIL/uL (4.5-6.0); WHITE BLOOD COUNT (AUTO) 7.2 K/uL (4.3-11.0)
[2019-12-11 13:43] LABS: BACTERIA,URINE Few /HPF (None Seen); RBC,URINE 21-50 /HPF (0-2); WBC,URINE 51-80 /HPF (0-3)
[2019-12-11 13:44] LABS: SQUAMOUS EPITHELIAL CELL,UR 0-2 /HPF (None Seen); YEAST,URINE Few /HPF (None Seen)
[2019-12-11 15:06] LABS: BAND % (MANUAL) 3 % (0.0-5.0); EOSINOPHILS % (MANUAL) 1 % (0-4); LYMPHOCYTES % (MANUAL) 34 % (16-48); MONOCYTES % (MANUAL) 19 % (0-11.0); MYELOCYTES % 1 % (0-0); NEUTROPHILS % (MANUAL) 32 (42-76); REACTIVE LYMPHOCYTES 10 % (0-0)
== END 2019-12-11 23:59 | disposition home health service (06) ==
LOC: WOU 11:40
PROVIDERS: ATTEND Surgery
DX: L89.324 Pressure ulcer of left buttock, stage 4 (principal); R26.2 Difficulty in walking, not elsewhere classified; I87.2 Venous insufficiency (chronic) (peripheral); I89.0 Lymphedema, not elsewhere classified; E44.0 Moderate protein-calorie malnutrition; Z68.23 Body mass index [BMI] 23.0-23.9, adult; G89.29 Other chronic pain; M54.9 Dorsalgia, unspecified; D70.9 Neutropenia, unspecified; B19.20 Unspecified viral hepatitis C without hepatic coma; Z89.511 Acquired absence of right leg below knee; Z79.52 Long term (current) use of systemic steroids; Z79.899 Other long term (current) drug therapy
CPT/HCPCS: 11044; 36415; 80053; 81001; 84134; 85025; 87086; 87106; A6253; 81000-TC

== ENCOUNTER 2019-12-14 13:45 | Outpatient (CLI) | payer MEDICARE, OTHER | END 2019-12-14 23:59 | disposition home health service (06) | LOC: WOU 13:45 | PROVIDERS: ATTEND Surgery | DX: L89.324 Pressure ulcer of left buttock, stage 4 (principal); E44.0 Moderate protein-calorie malnutrition; Z68.23 Body mass index [BMI] 23.0-23.9, adult; I87.2 Venous insufficiency (chronic) (peripheral); I89.0 Lymphedema, not elsewhere classified; G82.20 Paraplegia, unspecified; R26.2 Difficulty in walking, not elsewhere classified; G89.29 Other chronic pain; M54.9 Dorsalgia, unspecified; B19.20 Unspecified viral hepatitis C without hepatic coma; D70.9 Neutropenia, unspecified; M86.9 Osteomyelitis, unspecified; Z79.899 Other long term (current) drug therapy; Z89.511 Acquired absence of right leg below knee | CPT/HCPCS: 11044; 11047; 97605-TC ==

== ENCOUNTER 2019-12-21 12:45 | Outpatient (CLI) | payer MEDICARE, OTHER | END 2019-12-21 23:59 | disposition home health service (06) | LOC: WOU 12:45 | PROVIDERS: ATTEND Surgery | DX: L89.324 Pressure ulcer of left buttock, stage 4 (principal); E44.0 Moderate protein-calorie malnutrition; Z68.23 Body mass index [BMI] 23.0-23.9, adult; I87.2 Venous insufficiency (chronic) (peripheral); G82.20 Paraplegia, unspecified; I89.0 Lymphedema, not elsewhere classified; R26.2 Difficulty in walking, not elsewhere classified; G89.29 Other chronic pain; M54.9 Dorsalgia, unspecified; B19.20 Unspecified viral hepatitis C without hepatic coma; D70.9 Neutropenia, unspecified; M86.9 Osteomyelitis, unspecified; Z79.899 Other long term (current) drug therapy | CPT/HCPCS: 11044; 11047; 97605-TC ==

== ENCOUNTER 2019-12-28 12:50 | Outpatient (CLI) | payer MEDICARE, OTHER | END 2019-12-28 23:59 | disposition home health service (06) | LOC: WOU 12:50 | PROVIDERS: ATTEND Surgery | DX: L89.324 Pressure ulcer of left buttock, stage 4 (principal); E44.0 Moderate protein-calorie malnutrition; Z68.23 Body mass index [BMI] 23.0-23.9, adult; I87.2 Venous insufficiency (chronic) (peripheral); I89.0 Lymphedema, not elsewhere classified; G82.20 Paraplegia, unspecified; G89.29 Other chronic pain; M54.9 Dorsalgia, unspecified; B19.20 Unspecified viral hepatitis C without hepatic coma; D70.9 Neutropenia, unspecified; Z79.899 Other long term (current) drug therapy; Z89.511 Acquired absence of right leg below knee | CPT/HCPCS: 11044; 11047 ==

== ENCOUNTER 2020-01-01 10:40 | Outpatient (CLI) | payer MEDICARE, OTHER | END 2020-01-01 23:59 | disposition home health service (06) | LOC: WOU 10:40 | PROVIDERS: ATTEND Surgery | DX: L89.324 Pressure ulcer of left buttock, stage 4 (principal); E44.0 Moderate protein-calorie malnutrition; Z68.23 Body mass index [BMI] 23.0-23.9, adult; I89.0 Lymphedema, not elsewhere classified; G82.20 Paraplegia, unspecified; I87.2 Venous insufficiency (chronic) (peripheral); M86.9 Osteomyelitis, unspecified; G89.29 Other chronic pain; M54.9 Dorsalgia, unspecified; B19.20 Unspecified viral hepatitis C without hepatic coma; D70.9 Neutropenia, unspecified; Z89.511 Acquired absence of right leg below knee; Z79.899 Other long term (current) drug therapy | CPT/HCPCS: 11043; 97605-TC ==

== ENCOUNTER 2020-01-04 12:37 | Outpatient (CLI) | payer MEDICARE, OTHER | END 2020-01-04 23:59 | disposition home health service (06) | LOC: WOU 12:37 | PROVIDERS: ATTEND Surgery | DX: L89.324 Pressure ulcer of left buttock, stage 4 (principal); E44.0 Moderate protein-calorie malnutrition; Z68.23 Body mass index [BMI] 23.0-23.9, adult; I89.0 Lymphedema, not elsewhere classified; I87.2 Venous insufficiency (chronic) (peripheral); G89.29 Other chronic pain; M54.9 Dorsalgia, unspecified; D70.9 Neutropenia, unspecified; G82.20 Paraplegia, unspecified; Z89.511 Acquired absence of right leg below knee; Z79.899 Other long term (current) drug therapy | CPT/HCPCS: 11043; 97605-TC ==

== ENCOUNTER 2020-01-08 11:45 | Outpatient (CLI) | payer MEDICARE, OTHER ==
[2020-01-08 14:11] LABS: APPEARANCE,URINE CLEAR (CLEAR); BILIRUBIN,URINE NEGATIVE (NEGATIVE); BLOOD, URINE MODERATE Ery/uL (NEGATIVE); COLOR,URINE YELLOW (YELLOW); KETONES,URINE NEGATIVE (NEGATIVE); LEUKOCYTE ESTERASE ,URINE SMALL (NEGATIVE); NITRITE, URINE NEGATIVE (NEGATIVE); PH,URINE 6.5 (5.0-8.0); PROTEIN,URINE TRACE mg/dl (NEGATIVE); UGLUCOSE NEGATIVE (NEGATIVE); UROBILINOGEN,URINE 0.2 EU/dL (0.2)
[2020-01-08 14:35] LABS: BACTERIA,URINE 4+ /HPF (None Seen); SQUAMOUS EPITHELIAL CELL,UR 0-2 /HPF (None Seen)
== END 2020-01-08 23:59 | disposition home health service (06) ==
LOC: WOU 11:45
PROVIDERS: ATTEND Surgery
DX: L89.324 Pressure ulcer of left buttock, stage 4 (principal); E44.0 Moderate protein-calorie malnutrition; Z68.23 Body mass index [BMI] 23.0-23.9, adult; G82.20 Paraplegia, unspecified; I87.2 Venous insufficiency (chronic) (peripheral); I89.0 Lymphedema, not elsewhere classified; G89.29 Other chronic pain; M54.9 Dorsalgia, unspecified; D70.9 Neutropenia, unspecified; Z89.511 Acquired absence of right leg below knee; Z79.899 Other long term (current) drug therapy
CPT/HCPCS: 11043; 81000-TC; 87086-TC; 87186-TC; 97605-TC

== ENCOUNTER 2020-01-11 13:20 | Outpatient (CLI) | payer MEDICARE, OTHER | END 2020-01-11 23:59 | disposition home health service (06) | LOC: WOU 13:20 | PROVIDERS: ATTEND Surgery | DX: L89.324 Pressure ulcer of left buttock, stage 4 (principal); E44.0 Moderate protein-calorie malnutrition; Z68.23 Body mass index [BMI] 23.0-23.9, adult; I87.2 Venous insufficiency (chronic) (peripheral); G82.20 Paraplegia, unspecified; G89.29 Other chronic pain; M54.9 Dorsalgia, unspecified; B19.20 Unspecified viral hepatitis C without hepatic coma; D70.9 Neutropenia, unspecified; I89.0 Lymphedema, not elsewhere classified; Z79.899 Other long term (current) drug therapy; Z89.511 Acquired absence of right leg below knee | CPT/HCPCS: 11043; 97605-TC ==

== ENCOUNTER → 2020-01-18 | Outpatient (CLI) | payer MEDICARE, OTHER | END | disposition home health service (06) | LOC: WOU 13:10 | PROVIDERS: ATTEND Surgery | DX: L89.324 Pressure ulcer of left buttock, stage 4 (principal); E44.0 Moderate protein-calorie malnutrition; Z68.23 Body mass index [BMI] 23.0-23.9, adult; G82.20 Paraplegia, unspecified; G89.29 Other chronic pain; M54.9 Dorsalgia, unspecified; I87.2 Venous insufficiency (chronic) (peripheral); I89.0 Lymphedema, not elsewhere classified; D70.9 Neutropenia, unspecified; Z79.899 Other long term (current) drug therapy; Z89.511 Acquired absence of right leg below knee | CPT/HCPCS: 11043; A6253 ==

== ENCOUNTER 2020-01-25 09:30 | Outpatient (CLI) | payer MEDICARE, OTHER | END 2020-01-25 23:59 | disposition home health service (06) | LOC: WOU 09:30 | PROVIDERS: ATTEND Surgery | DX: L89.324 Pressure ulcer of left buttock, stage 4 (principal); E44.0 Moderate protein-calorie malnutrition; Z68.23 Body mass index [BMI] 23.0-23.9, adult; I89.0 Lymphedema, not elsewhere classified; I87.2 Venous insufficiency (chronic) (peripheral); E11.9 Type 2 diabetes mellitus without complications; G82.20 Paraplegia, unspecified; G89.29 Other chronic pain; M54.9 Dorsalgia, unspecified; D70.9 Neutropenia, unspecified; Z89.511 Acquired absence of right leg below knee | CPT/HCPCS: 11044; 36415; 84134-TC; 97605-TC; A6253 ==

== ENCOUNTER 2020-02-01 12:35 | Outpatient (CLI) | payer MEDICARE, OTHER | END 2020-02-01 23:59 | disposition home health service (06) | LOC: WOU 12:35 | PROVIDERS: ATTEND Surgery | DX: L89.324 Pressure ulcer of left buttock, stage 4 (principal); E44.0 Moderate protein-calorie malnutrition; Z68.23 Body mass index [BMI] 23.0-23.9, adult; I89.0 Lymphedema, not elsewhere classified; I87.2 Venous insufficiency (chronic) (peripheral); G89.29 Other chronic pain; M54.9 Dorsalgia, unspecified; G82.20 Paraplegia, unspecified; D70.9 Neutropenia, unspecified; Z89.511 Acquired absence of right leg below knee | CPT/HCPCS: 11043; 97605-TC ==

== ENCOUNTER 2020-02-12 10:30 | Outpatient (CLI) | payer MEDICARE, OTHER | END 2020-02-12 23:59 | disposition home health service (06) | LOC: WOU 10:30 | PROVIDERS: ATTEND Surgery | DX: L89.324 Pressure ulcer of left buttock, stage 4 (principal); E44.0 Moderate protein-calorie malnutrition; Z68.23 Body mass index [BMI] 23.0-23.9, adult; I87.2 Venous insufficiency (chronic) (peripheral); I89.0 Lymphedema, not elsewhere classified; D70.9 Neutropenia, unspecified; G82.20 Paraplegia, unspecified; Z89.511 Acquired absence of right leg below knee; Z86.19 Personal history of other infectious and parasitic diseases | CPT/HCPCS: 11043 ==

== ENCOUNTER 2020-02-19 10:40 | Outpatient (CLI) | payer MEDICARE, OTHER ==
[2020-02-19] MEDS ORDERED: LIDOCAINE SOLN 4% 50 ML BOTTLE ONE (11:22)
== END 2020-02-19 23:59 | disposition home health service (06) ==
LOC: WOU 10:40
PROVIDERS: ATTEND Surgery
DX: L89.324 Pressure ulcer of left buttock, stage 4 (principal); G82.20 Paraplegia, unspecified; E44.0 Moderate protein-calorie malnutrition; Z68.23 Body mass index [BMI] 23.0-23.9, adult; I87.2 Venous insufficiency (chronic) (peripheral); I89.0 Lymphedema, not elsewhere classified; D70.9 Neutropenia, unspecified; G89.29 Other chronic pain; M54.9 Dorsalgia, unspecified; Z86.19 Personal history of other infectious and parasitic diseases; Z79.899 Other long term (current) drug therapy
CPT/HCPCS: 11043; 97605-TC

== ENCOUNTER 2020-03-04 11:00 | Outpatient (CLI) | payer MEDICARE, OTHER ==
[2020-03-04] MEDS ORDERED: LIDOCAINE SOLN 4% 50 ML BOTTLE ONE (11:14)
[2020-03-04] MEDS ORDERED: DAKINS HALF STRENGTH (0.25%) 480 ML BOTTLE ONE (11:15)
[2020-03-04] MEDS ORDERED: BENZOIN COMPOUND TINCT 60 ML BOTTLE ONE (11:45)
== END 2020-03-04 23:59 | disposition home health service (06) ==
LOC: WOU 11:00
PROVIDERS: ATTEND Surgery
DX: L89.324 Pressure ulcer of left buttock, stage 4 (principal); E44.0 Moderate protein-calorie malnutrition; Z68.23 Body mass index [BMI] 23.0-23.9, adult; I87.2 Venous insufficiency (chronic) (peripheral); I89.0 Lymphedema, not elsewhere classified; G82.20 Paraplegia, unspecified; G89.29 Other chronic pain; M54.9 Dorsalgia, unspecified; D70.9 Neutropenia, unspecified; Z86.19 Personal history of other infectious and parasitic diseases; Z89.511 Acquired absence of right leg below knee; Z79.899 Other long term (current) drug therapy
CPT/HCPCS: 11043; 97605-TC

== ENCOUNTER 2020-03-11 10:55 | Outpatient (CLI) | payer MEDICARE, OTHER | END 2020-03-11 23:59 | disposition home health service (06) | LOC: WOU 10:55 | PROVIDERS: ATTEND Surgery | DX: L89.324 Pressure ulcer of left buttock, stage 4 (principal); E44.0 Moderate protein-calorie malnutrition; Z68.23 Body mass index [BMI] 23.0-23.9, adult; G82.20 Paraplegia, unspecified; I89.0 Lymphedema, not elsewhere classified; I87.2 Venous insufficiency (chronic) (peripheral); G89.29 Other chronic pain; M54.9 Dorsalgia, unspecified; D70.9 Neutropenia, unspecified; Z86.19 Personal history of other infectious and parasitic diseases; Z89.511 Acquired absence of right leg below knee; Z79.899 Other long term (current) drug therapy | CPT/HCPCS: 11043 ==

== ENCOUNTER 2020-03-28 13:00 | Outpatient (CLI) | payer MEDICARE, OTHER ==
[2020-03-28] MEDS ORDERED: LIDOCAINE SOLN 4% 50 ML BOTTLE ONE (13:01)
== END 2020-03-28 23:59 | disposition home health service (06) ==
LOC: WOU 13:00
PROVIDERS: ATTEND Surgery
DX: L89.324 Pressure ulcer of left buttock, stage 4 (principal); I87.2 Venous insufficiency (chronic) (peripheral); I89.0 Lymphedema, not elsewhere classified; E44.0 Moderate protein-calorie malnutrition; Z68.23 Body mass index [BMI] 23.0-23.9, adult; G82.20 Paraplegia, unspecified; G89.29 Other chronic pain; M54.9 Dorsalgia, unspecified; Z86.19 Personal history of other infectious and parasitic diseases; Z89.511 Acquired absence of right leg below knee; M06.9 Rheumatoid arthritis, unspecified
CPT/HCPCS: 11043; 11044

== ENCOUNTER 2020-04-11 12:20 | Outpatient (CLI) | payer MEDICARE, OTHER ==
[2020-04-11] MEDS ORDERED: DAKINS HALF STRENGTH (0.25%) 480 ML BOTTLE ONE (13:04)
[2020-04-11 15:31] LABS: APPEARANCE,URINE SL CLOUDY (CLEAR); BILIRUBIN,URINE NEGATIVE (NEGATIVE); BLOOD, URINE TRACE-INTA Ery/uL (NEGATIVE); COLOR,URINE YELLOW (YELLOW); KETONES,URINE NEGATIVE (NEGATIVE); LEUKOCYTE ESTERASE ,URINE MODERATE (NEGATIVE); NITRITE, URINE POSITIVE (NEGATIVE); PH,URINE 6.5 (5.0-8.0); PROTEIN,URINE 30 mg/dl (NEGATIVE); UGLUCOSE NEGATIVE (NEGATIVE); UROBILINOGEN,URINE 0.2 EU/dL (0.2)
[2020-04-11 15:55] LABS: BACTERIA,URINE 4+ /HPF (None Seen); SQUAMOUS EPITHELIAL CELL,UR 0-2 /HPF (None Seen); WBC,URINE 21-50 /HPF (0-3)
== END 2020-04-11 23:59 | disposition home health service (06) ==
LOC: WOU 12:20
PROVIDERS: ATTEND Surgery
DX: L89.324 Pressure ulcer of left buttock, stage 4 (principal); L89.523 Pressure ulcer of left ankle, stage 3; G82.20 Paraplegia, unspecified; I87.2 Venous insufficiency (chronic) (peripheral); I89.0 Lymphedema, not elsewhere classified; E44.0 Moderate protein-calorie malnutrition; Z68.23 Body mass index [BMI] 23.0-23.9, adult; R26.2 Difficulty in walking, not elsewhere classified; G89.29 Other chronic pain; M54.9 Dorsalgia, unspecified; D70.9 Neutropenia, unspecified; Z89.511 Acquired absence of right leg below knee; Z79.899 Other long term (current) drug therapy
CPT/HCPCS: 11043; 81000-TC; 87086-TC; 87186-TC

== ENCOUNTER 2020-04-25 12:14 | Outpatient (CLI) | payer MEDICARE, OTHER | END 2020-04-25 23:59 | disposition home or self-care (01) | LOC: MSC 12:14 | PROVIDERS: ATTEND Internal Medicine | DX: L03.116 Cellulitis of left lower limb (principal); Z87.440 Personal history of urinary (tract) infections; E27.40 Unspecified adrenocortical insufficiency; C91.Z0 Other lymphoid leukemia not having achieved remission; E11.9 Type 2 diabetes mellitus without complications; M06.9 Rheumatoid arthritis, unspecified; D47.3 Essential (hemorrhagic) thrombocythemia; J44.9 Chronic obstructive pulmonary disease, unspecified; E88.09 Other disorders of plasma-protein metabolism, not elsewhere classified; E43 Unspecified severe protein-calorie malnutrition; I82.409 Acute embolism and thrombosis of unspecified deep veins of unspecified lower extremity; Z87.09 Personal history of other diseases of the respiratory system; Z86.2 Personal history of diseases of the blood and blood-forming organs and certain disorders involving the immune mechanism; G82.20 Paraplegia, unspecified; Z79.52 Long term (current) use of systemic steroids ==

== ENCOUNTER 2020-05-09 15:00 | Outpatient (CLI) | payer MEDICARE, OTHER ==
[2020-05-09] MEDS ORDERED: Z GUARD REMEDY 2 OZ OINT TP ONE (15:31)
[2020-05-09] MEDS ORDERED: BACI/NEOM/POLY B OINT PKT 1 UDPKT PACKET ONE (15:33)
== END 2020-05-09 23:59 | disposition home health service (06) ==
LOC: WOU 15:00
PROVIDERS: ATTEND Surgery
DX: L89.324 Pressure ulcer of left buttock, stage 4 (principal); L89.523 Pressure ulcer of left ankle, stage 3; E44.0 Moderate protein-calorie malnutrition; Z68.23 Body mass index [BMI] 23.0-23.9, adult; I87.2 Venous insufficiency (chronic) (peripheral); I89.0 Lymphedema, not elsewhere classified; G82.20 Paraplegia, unspecified; E11.9 Type 2 diabetes mellitus without complications; Z89.511 Acquired absence of right leg below knee; G89.29 Other chronic pain; M54.9 Dorsalgia, unspecified; Z86.19 Personal history of other infectious and parasitic diseases; D70.9 Neutropenia, unspecified; Z79.899 Other long term (current) drug therapy
CPT/HCPCS: 11042; 11043

== ENCOUNTER 2020-06-19 13:00 | Outpatient (CLI) | payer MEDICARE, OTHER | END 2020-06-19 23:59 | disposition home or self-care (01) | LOC: MSC 13:00 | PROVIDERS: ATTEND Internal Medicine | DX: Z51.89 Encounter for other specified aftercare (principal); L03.116 Cellulitis of left lower limb; Z76.0 Encounter for issue of repeat prescription; Z87.440 Personal history of urinary (tract) infections; J44.9 Chronic obstructive pulmonary disease, unspecified; Z99.81 Dependence on supplemental oxygen; E27.40 Unspecified adrenocortical insufficiency; C92.90 Myeloid leukemia, unspecified, not having achieved remission; Z79.52 Long term (current) use of systemic steroids; N31.9 Neuromuscular dysfunction of bladder, unspecified; M06.9 Rheumatoid arthritis, unspecified; D47.3 Essential (hemorrhagic) thrombocythemia; Z89.511 Acquired absence of right leg below knee; E43 Unspecified severe protein-calorie malnutrition; G82.20 Paraplegia, unspecified; E11.43 Type 2 diabetes mellitus with diabetic autonomic (poly)neuropathy; K31.84 Gastroparesis; Z79.899 Other long term (current) drug therapy ==